=== PATIENT | male | born 1930 ===

== ENCOUNTER 2016-10-22 10:56 | Inpatient (IN) | payer MEDICARE, MEDICAID ==
--- NOTE | 2016-10-22 11:10 | ED Physician Chart ---
Chief Complaint/HPI - Patient Information Date Seen:: 10/22/16 Time Seen:: 11:00 Chief Complaint:: G-tube malfunction History of Present Illness:: 85-year-old male, history of CVA and trach dependent, brought in with acute, severe, G-tube malfunction that happened yesterday morning. G-tube became dislodged and nothing was placed in the stoma to keep it patent. Patient has associated decreased ability to intake nutrition. Also has reported intermittent cough 2-3 days. History limited as patient is averbal due to history of CVA History provided by EMS and EMS run sheet Allergies:: Allergies Allergy/AdvReac Type Severity Reaction Status Date / Time No Known Allergies Allergy Verified 08/18/16 16:46 Historian:: EMS Review:: Nurse's Note Reviewed, EMS run form Reviewed, Transfer documents Reviewed Review of Systems - Review of Systems Other: Complete system review otherwise unremarkable except as noted in HPI. Past Medical History - Past Medical History Past Medical History: CVA/TIA, Other (respiratory failure) Family History: None Social History: Non Smoker, No Alcohol, No Drug Use, Care Facility Surgical History: PEG/GTube Psychiatricy History: None Medication: Reviewed Family Medical History - Family Member Nephew History Unknown: Yes Mother History Unknown: Yes Physical Exam - Physical Examination Other:: INITIAL VITAL SIGNS: Reviewed by me GENERAL: Patient is lying in bed. No signs of acute distress HEAD: Head is normocephalic. No evidence of trauma. No scalp or facial swelling EYES: No scleral icterus bilaterally ENT: Oropharynx is clear of exudate and erythema NECK: Supple. No meningismus. No masses. No evidence of trauma. No cervical spine bony step-offs or crepitus to palpation RESPIRATORY: Patient is trached on ventilator No tachypnea. Right lower lobe rales and a few rhonchi. CV: Regular rate and rhythm. No murmurs, rubs, or gallops ABDOMEN: Soft, non-distended. No masses BACK: No ecchymoses. No evidence of trauma EXTREMITIES: Normal to inspection and palpation. No deformity SKIN: Warm and dry. No obvious rash. No jaundice NEUROLOGIC: Face is symmetric. Withdraws to pain in all extremities Labs/Radiology/EKG Results - Lab Results Results: Lab Results 10/22/16 10/22/16 10/22/16 Range/Units 11:35 11:40 11:40 WBC 8.9 D (4.8-10.8) Th/cmm RBC 4.32 (3.80-5.80) Mil/cmm Hgb 13.8 D (12.6-17.4) gm/dL Hct 41.1 D (39.0-49.0) % MCV 95.1 (80-99) fl MCH 32.0 H (27.0-31.0) pg MCHC Differential 33.6 (28.0-36.0) pg RDW 13.8 (11.5-20.0) % Plt Count 197 D (150-400) Th/cmm MPV 8.8 fl Band Neutrophils % 3 (0-10) % Neutrophils (Manual) 85 H (40-80) % Lymphocytes 5 L (20-50) % Monocytes 6 (2-10) % Eosinophils 1 (0-5) % Platelet Estimate ADEQUATE (NORMAL) Platelet Morphology NORMAL (NORMAL) RBC Morph Micro Appear NORMAL (NORMAL) PT 12.2 H (9.5-11.5) SECONDS INR 1.21 (0.5-1.4) PTT (Actin FS) 28.2 (26.0-38.0) SECONDS Sodium (136-145) mEq/L Potassium (3.5-5.1) mEq/L Chloride (98-107) mEq/L Carbon Dioxide (21.0-31.0) mEq/L Anion Gap (7.0-16.0) BUN (7-25) mg/dL Creatinine (0.7-1.3) mg/dL Est GFR ( Amer) Est GFR (Non-Af Amer) BUN/Creatinine Ratio Glucose (70-105) mg/dL Whole Bld Lactic Acid (0.60-2.00) mmol/L Calcium (8.6-10.3) mg/dL Total Bilirubin (0.3-1.0) mg/dL AST (13-39) U/L ALT (7-52) U/L Alkaline Phosphatase (34-104) U/L Total Protein (6.0-8.3) gm/dL Albumin (4.2-5.5) gm/dL Globulin gm/dL Albumin/Globulin Ratio (1.0-1.8) Urine Source [place] Urine Color YELLOW Urine Clarity CLEAR (CLEAR) Urine pH 8.5 Ur Specific [place] 1.015 (1.005-1.030) Urine Protein NEGATIVE (NEGATIVE) mg/dL Urine Glucose (UA) NEGATIVE (NEGATIVE) mg/dL Urine Ketones NEGATIVE (NEGATIVE) mg/dL Urine Blood SMALL H (NEGATIVE) Urine Nitrate NEGATIVE (NEGATIVE) Urine Bilirubin NEGATIVE (NEGATIVE) Urine Urobilinogen 0.2 (0.2 - 1.0) E.U./dL Ur Leukocyte Esterase NEGATIVE (NEGATIVE) Urine RBC 4-8 (0-5) /hpf Urine WBC 0-2 (0-5) /hpf Ur Epithelial Cells RARE (FEW) /lpf Urine Bacteria OCCASIONAL (NONE SEEN) /hpf 10/22/16 10/22/16 Range/Units 11:40 11:40 WBC (4.8-10.8) Th/cmm RBC (3.80-5.80) Mil/cmm Hgb (12.6-17.4) gm/dL Hct (39.0-49.0) % MCV (80-99) fl MCH (27.0-31.0) pg MCHC Differential (28.0-36.0) pg RDW (11.5-20.0) % Plt Count (150-400) Th/cmm MPV fl Band Neutrophils % (0-10) % Neutrophils (Manual) (40-80) % Lymphocytes (20-50) % Monocytes (2-10) % Eosinophils (0-5) % Platelet Estimate (NORMAL) Platelet Morphology (NORMAL) RBC Morph Micro Appear (NORMAL) PT (9.5-11.5) SECONDS INR (0.5-1.4) PTT (Actin FS) (26.0-38.0) SECONDS Sodium 136 (136-145) mEq/L Potassium 4.3 (3.5-5.1) mEq/L Chloride 102 (98-107) mEq/L Carbon Dioxide 24.4 (21.0-31.0) mEq/L Anion Gap 13.9 (7.0-16.0) BUN 22 (7-25) mg/dL Creatinine 1.0 (0.7-1.3) mg/dL Est GFR ( Amer) TNP Est GFR (Non-Af Amer) TNP BUN/Creatinine Ratio 22.0 Glucose 88 (70-105) mg/dL Whole Bld Lactic Acid 2.21 H* (0.60-2.00) mmol/L Calcium 9.9 (8.6-10.3) mg/dL Total Bilirubin 1.3 H (0.3-1.0) mg/dL AST 21 (13-39) U/L ALT 24 (7-52) U/L Alkaline Phosphatase 59 (34-104) U/L Total Protein 8.0 (6.0-8.3) gm/dL Albumin 3.9 L (4.2-5.5) gm/dL Globulin 4.1 gm/dL Albumin/Globulin Ratio 1.0 (1.0-1.8) Urine Source Urine Color Urine Clarity (CLEAR) Urine pH Ur Specific [place] (1.005-1.030) Urine Protein (NEGATIVE) mg/dL Urine Glucose (UA) (NEGATIVE) mg/dL Urine Ketones (NEGATIVE) mg/dL Urine Blood (NEGATIVE) Urine Nitrate (NEGATIVE) Urine Bilirubin (NEGATIVE) Urine Urobilinogen (0.2 - 1.0) E.U./dL Ur Leukocyte Esterase (NEGATIVE) Urine RBC (0-5) /hpf Urine WBC (0-5) /hpf Ur Epithelial Cells (FEW) /lpf Urine Bacteria (NONE SEEN) /hpf - Radiology Results Results: Single AP VIEW Portable Chest X-ray was interpreted independently and contemporaneously by Salvador Rosales MD: No cardiomegaly Normal mediastinum Right lower lobe infiltrates No pneumothorax No soft tissue or bony abnormalities CT chest without contrast per radiology Right lower lobe and right middle lobe infiltrates Assessment - Assessment General Assessment: Critical Care Time: 35 minutes Treatments/Evaluations: Close monitoring and treatment of unstable vital signs, cardiorespiratory, and neurologic status, while maintaining tight balance of fluid, respiratory, and cardiac interventions. This time includes discussing the case with the patient and the patient's family. This time does not include all procedures stated elsewhere in this record. This time also includes reviewing old records, labs and radiological studies. This time includes examining and re-examining the patient. Additionally, this time also includes arranging care with admitting and consulting physicians. Excludes all billable procedures: Yes This condition life threatening/high prob of deterioration: Yes ED Septic Shock - . Is Septic Shock (SBP<90, OR Lactate>4 mmol\L) present?: No Reassessment (Disposition) - Reassessment Reassessment:: Patient has septic with right lower lobe pneumonia. Likely aspiration. Complicated by him being on ventilator. He did receive IV Zosyn 4.5 g. He also received a breathing treatment. G-tube site was fortunately closed. Attempt was made to reopen the ostomy site here in the ER however there is been too much time between the G-tube removal and now. He will need G-tube replacement. Displacement in the operating room. There was 35 minutes critical care time on this patient given the sepsis with right lower lobe pneumonia and lactic acid greater than 2. Blood cultures were drawn prior to giving antibiotics. Patient's blood pressure was systolic greater than 90. Discussed the case in detail with Dr. Shayne Liu who is covering for Dr. Dubose who is the patient's primary care physician and he will also be admitting the patient to his service for further workup and treatment. Reassessment Condition:: Improved - Diagnosis Diagnosis:: Sepsis, right lower lobe pneumonia G-tube malfunction - Patient Disposition Discharge/Transfer:: Acute Care w/in this hosp Admitted to:: ICU Admitting Medical Physician:: Omar Liu Time:: 13:13 Condition at Disposition:: Stable
[2016-10-22] MEDS ORDERED: Albuterol/Ipratropium Neb 3 ML AERS HHN ONE ×2 (11:43→11:44)
[2016-10-22 12:02] LABS: MEAN CELL VOLUME 95.1 fl (80-99); MEAN CORPUSCULAR HGB CONC 33.6 pg (28.0-36.0); MEAN PLATELET VOLUME 8.8 fl; RED BLOOD COUNT 4.32 Mil/cmm (3.80-5.80); RED CELL DISTRIBUTION WIDTH 13.8 % (11.5-20.0)
[2016-10-22 12:04] LABS: URINE BILIRUBIN NEGATIVE (NEGATIVE); URINE BLOOD SMALL (NEGATIVE); URINE COLOR YELLOW; URINE GLUCOSE (UA) NEGATIVE (NEGATIVE); URINE KETONE NEGATIVE (NEGATIVE); URINE PH 8.5; URINE PROTEIN NEGATIVE (NEGATIVE); URINE UROBILINOGEN 0.2 E.U./dL (0.2 - 1.0)
[2016-10-22 12:07] LABS: HEMATOCRIT 41.1 % (39.0-49.0); HEMOGLOBIN 13.8 gm/dL (12.6-17.4); PLATELET COUNT 197 Th/cmm (150-400); WHITE BLOOD COUNT 8.9 Th/cmm (4.8-10.8)
[2016-10-22 12:15] LABS: INR 1.21 (0.5-1.4); PROTHROMBIN TIME (TEST) 12.2 SECONDS (9.5-11.5)
[2016-10-22 12:19] LABS: ALKALINE PHOSPHATASE 59 U/L (34-104); ANION GAP 13.9 (7.0-16.0); BILIRUBIN,TOTAL 1.3 mg/dL (0.3-1.0); BUN - UREA NITROGEN 22 mg/dL (7-25); CALCIUM SERUM 9.9 mg/dL (8.6-10.3); CARBON DIOXIDE 24.4 mEq/L (21.0-31.0); CHLORIDE 102 mEq/L (98-107); GLUCOSE 88 mg/dL (70-105); POTASSIUM SERUM 4.3 mEq/L (3.5-5.1); SGOT 21 U/L (13-39); SGPT/ALT 24 U/L (7-52); SODIUM SERUM 136 mEq/L (136-145)
--- NOTE | 2016-10-22 12:26 | Diagnostic Imaging Report ---
CHEST X-RAY: AP view INDICATION: Sepsis COMPARISON: Chest x-ray 08/24/2016 FINDINGS: Tracheostomy tube is noted. There is fullness of the right lisette with what appears to be overlying external material. No focal consolidation. Mild cardiomegaly is noted with atherosclerosis. Osseous structures are intact. IMPRESSION: Fullness of the right hilar region. Lymphadenopathy cannot be excluded. CT chest would provide additional detail and assessment. Mild cardiomegaly with atherosclerosis.
[2016-10-22 12:32] LABS: URINE EPITHELIAL CELLS RARE /lpf (FEW); URINE WBC 0-2 /hpf (0-5)
[2016-10-22 12:33] LABS: URINE BACTERIA OCCASIONAL /hpf (NONE SEEN)
[2016-10-22 12:42] LABS: BAND NEUTROPHILE 3 % (0-10); EOSINOPHIL 1 % (0-5); NEUTROPHILS 85 % (40-80); TOTAL CELLS COUNTED 100
[2016-10-22 12:43] LABS: PLATELET ESTIMATE ADEQUATE (NORMAL); PLATELET MORPHOLOGY NORMAL (NORMAL)
--- NOTE | 2016-10-22 13:07 | Diagnostic Imaging Report ---
CT Chest without IV contrast HISTORY: Cough COMPARISON: Chest x-ray earlier the same day. Technique: Axial images were obtained from the base of the neck to the upper abdomen without IV contrast. Reconstructions were made. Total DLP 251, CTDI 5.9 Findings: A tracheostomy tube is noted. 5 mm left thyroid nodule is noted. Assessment of the mediastinum is limited due to lack of IV contrast. No evidence of mediastinal lymphadenopathy. Ectatic ascending aorta is seen measuring up to 4.1 cm. Mild athetotic vascular disease is noted. Mild cardiomegaly is noted. No pericardial effusion. 3 mm granuloma the right upper lobe is noted. Right basal passive atelectatic and mild consolidative changes are noted. Additional focal left upper lobe infiltrate is also noted. Additional left basal passive atelectasis is noted. No effusions. The upper abdomen demonstrates bilateral renal cysts with calcification seen along the peripheral aspect of the left renal cyst. A 2 mm nonobstructive right renal stone. Degenerative changes of the spine are noted. Mild compression the deformities of T1 and T5 are noted. IMPRESSION: Right basal patchy atelectatic and focal consolidative changes. Pneumonia of the right lung base cannot be excluded Additional focal left midlung infiltrate and left basal passive atelectasis. Cardiomegaly and ectatic ascending aorta. Mild atherosclerotic cardiovascular disease 2 mm nonobstructive right renal stone. Bilateral renal cysts with focal calcification of the peripheral aspect of the left renal cyst. Mild compression deformities of the T1 and T5 vertebral bodies. The T1 vertebral body compression deformity appears new when compared to previous CT examination on 08/25/2016. No evidence of retropulsion. Please correlate with clinical findings. Small nodule of the left lobe of the thyroid gland. Ultrasound would further clarify.
[2016-10-22] MEDS ORDERED: Magnesium Hydroxide (MOM) 30 mL UDC GT PRN (17:10)
[2016-10-22] MEDS ORDERED: Albuterol Nebulizer 2.5mg/3mL HHN PRN (17:10)
[2016-10-22] MEDS: Albuterol/Ipratropium Neb 3 ML AERS HHN SCH ×2 (19:02→23:01)
[2016-10-22] MEDS: Budesonide 0.5 Mg/2 mL Ud HHN SCH (19:02)
[2016-10-22] MEDS ORDERED: Chlorhexidine Gluconate 0.12% 480mL Bottle MM SCH (20:00)
--- NOTE | 2016-10-22 21:41 | Consultation ---
REASON FOR CONSULTATION: Help manage with respiratory failure, probably acute on chronic with questionable infiltrate on the right basal area with significant dehydration and altered state of mind. 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 The patient basically initially was admitted because the gastric stoma dislodged and subsequently, the patient had significant decreased ability to take p.o. intake and has required a G-tube, came out with significant calcification. The patient was needed to have hydration and respiratory management and possibly treatment of pneumonia. The patient was admitted for further care and necessary treatment. Unfortunately, meaningful detailed history from the patient is not available. PAST MEDICAL HISTORY: CVA with chronic respiratory failure, history of dysphagia, aphasia, and the patient has a G-tube which was probably accidently dislodged. Other history is very minimal to nil at this particular time. PHYSICAL EXAMINATION: GENERAL: This is an elderly looking gentleman, barely blinks eyes, but no respiratory distress. VITAL SIGNS: Recorded vital signs show temperature is 98.6, blood pressure 115/80, saturation is 100% on 40% of oxygen with FiO2 of 40% with AC of PEEP of 5. HEENT: Examination of head is essentially unremarkable. Pupils appear to be equal and reacting to light. Conjunctivae are slightly pallor. Oral cavity shows limited exam, but appears to be poor dental hygiene. NECK: Veins could not be visualized. Neck finding shows some tracheostomy tube at the base of the neck anteriorly, appears to be clean and okay. SKIN: Turgor is very poor. CHEST: Finding shows diminished air entry. No other adventitious breath sounds. Occasional secretory noise. HEART: Regular. ABDOMEN: Shows a dressing over dislodged G-tube. EXTREMITIES: Shows no peripheral edema. No cyanosis or clubbing. LABORATORY DATA: The patient's pertinent laboratory studies show white count is 8.9, hemoglobin 13.8, and PT is 112. Electrolytes are okay except for lactic acid 2.21. Total bilirubin 1.3 and BUN is 22. The patient's chest x-ray looks okay except for some on right mid lung area. CT of the chest shows slightly volume lung contracture which appears to be chronic changes on the left side with decreased lung volume and other laboratory studies show slight blood in the urine, but otherwise unremarkable. ASSESSMENT: 1. The patient is clinically stable with chronic vent dependence. 2. Abnormal chest x-ray, probably chronic infiltrate on the right side. 3. Dehydration. 4. Gastric chest tube dislodged. PLANS AND SUGGESTIONS: We will go ahead and get a baseline sputum culture. We will get inhalation treatment and we will let the primary decide about G-tube replacement and antibiotic per ID and go from there. JOB# [id number]
[2016-10-22] MEDS: Chlorhexidine Gluconate 0.12% 15mL Mouthwash MM SCH (22:01)
[2016-10-23] MEDS: Albuterol/Ipratropium Neb 3 ML AERS HHN SCH ×6 (03:14→22:49)
[2016-10-23 07:10] LABS: % BASOPHILS 0.5 % (0.0-2.0); % EOSINOPHILS 0.3 % (0.0-5.0); % LYMPHOCYTES 9.1 % (20.0-50.0); % MONOCYTES 11.9 % (2.0-10.0); % NEUTROPHILS 78.2 % (40.0-80.0); HEMATOCRIT 37.5 % (39.0-49.0); MEAN CELL VOLUME 94.6 fl (80-99); MEAN CORPUSCULAR HEMOGLOBIN 32.8 pg (27.0-31.0); MEAN CORPUSCULAR HGB CONC 34.7 pg (28.0-36.0); NEUTROPHILE ABSOLUTE 6.9 Th/cmm (1.8-8.0); PLATELET COUNT 183 Th/cmm (150-400); RED BLOOD COUNT 3.96 Mil/cmm (3.80-5.80); RED CELL DISTRIBUTION WIDTH 14.1 % (11.5-20.0); WHITE BLOOD COUNT 8.7 Th/cmm (4.8-10.8)
[2016-10-23 07:25] LABS: ALKALINE PHOSPHATASE 58 U/L (34-104); ANION GAP 11.4 (7.0-16.0); BILIRUBIN,TOTAL 1.1 mg/dL (0.3-1.0); BUN - UREA NITROGEN 30 mg/dL (7-25); BUN/CREATININE RATIO 27.3; CALCIUM SERUM 9.6 mg/dL (8.6-10.3); CARBON DIOXIDE 24.4 mEq/L (21.0-31.0); CHLORIDE 105 mEq/L (98-107); CREATININE - SERUM 1.1 mg/dL (0.7-1.3); GLUCOSE 89 mg/dL (70-105); POTASSIUM SERUM 3.8 mEq/L (3.5-5.1); SGOT 18 U/L (13-39); SGPT/ALT 17 U/L (7-52); SODIUM SERUM 137 mEq/L (136-145)
[2016-10-23] MEDS: Budesonide 0.5 Mg/2 mL Ud HHN SCH (07:37)
[2016-10-23] MEDS: Chlorhexidine Gluconate 0.12% 15mL Mouthwash MM SCH ×2 (08:25→20:54)
[2016-10-23] MEDS ORDERED: Multivitamin w/ Minerals 15 mL UDC GT SCH (09:00)
[2016-10-23] MEDS: Lactulose 10 Gm/15 mL 30mL UDC GT SCH ×2 (09:30→17:30)
[2016-10-23] MEDS: Ferrous Sulfate 300 MG/5 ML UDC GT SCH ×2 (09:30→17:30)
[2016-10-23] MEDS: Aspirin 81mg Chewable Tab GT SCH (09:30)
[2016-10-23] MEDS ORDERED: VTE Chemical Prophylaxis Screen/Admission MC PRN (09:45)
--- NOTE | 2016-10-23 10:39 | Diagnostic Imaging Report ---
Portable chest x-ray HISTORY: Pneumonia Compared with prior exam of 10/22/2016, the heart remains enlarged. No definite acute focal pulmonary processes identified. IMPRESSION: 1. No definite acute focal pulmonary parenchymal processes 2. Cardiomegaly
--- NOTE | 2016-10-23 10:40 | Diagnostic Imaging Report ---
Portable chest x-ray HISTORY: Shortness of breath, nasogastric tube placement Compared with the prior exam taken earlier in the day, nasogastric tube is been inserted. The tip is in the region of the stomach. No definite focal pulmonary processes. The heart is enlarged. IMPRESSION: 1. New nasogastric tube in the region of the stomach 2. No definite acute focal pulmonary parenchymal processes 3. Cardiomegaly
[2016-10-23] MEDS: Multivitamin w/ Minerals Tab PO SCH (12:00)
[2016-10-23] MEDS: D5-0.45NS 1,000 ML IV SCH (21:44)
--- NOTE | 2016-10-23 22:19 | History & Physical ---
CHIEF COMPLAINT: Dislodgement of G-tube. HISTORY OF PRESENT ILLNESS: The patient is an 85-year-old male with a past medical history of CVA, atrial fibrillation, peripheral arterial disease, essential hypertension, coronary artery disease, GERD, anxiety disorder, history of pneumonia in the past, CVA in the past, history of cellulitis to right lower extremity, chronic ventilator dependence, dysphagia, G-tube, brought in from nursing facility for dislodgement of his G-tube. His stoma was already closed and required placement G-tube again. On initial evaluation, the patient's temperature was 98.6 degrees Fahrenheit and WBC count was 8900. Chest x-ray showed fullness of right hilar region, suspected pneumonia. CT scan of the chest was also performed and showed mild compression deformity T1 and T5 vertebral bodies, cardiomegaly, focal left mid lung infiltrate with the left basal patchy atelectasis, small nodule of left lobe of the thyroid. GI consult was called, Pulmonary consult was called. Waiting for further recommendations. PAST MEDICAL HISTORY: Includes atrial fibrillation and peripheral arterial disease, essential hypertension, coronary artery disease, GERD, anxiety disorder, history of pneumonia in the past, CVA in the past, history of cellulitis of right lower extremity treated in the past, dependence on ventilator chronically, G-tube for dysphagia. ALLERGIES: NKDA. MEDICATIONS: See medication reconciliation sheet. FAMILY HISTORY: Not available. SOCIAL HISTORY: The patient lives at nursing facility. No history of smoking, alcohol or drug use. PAST SURGICAL HISTORY: Includes PEG placement and tracheostomy. REVIEW OF SYSTEMS: Unable to give any history. So far no fever, no chills. PHYSICAL EXAMINATION: CURRENT VITAL SIGNS: Shows temperature is 97.8 degree Fahrenheit, pulse 81, respirations 16, blood pressure 125/62. GENERAL: The patient is comfortable lying in the bed, not in acute distress. HEENT: Head is normocephalic, atraumatic. Oral cavity moist, pink tongue. Eyes: Pallor is present, no icterus. Pupils PERRLA, EOMI. NECK: Supple, trach site is clear. CHEST: Bilateral vesicular sounds. Crackles present. HEART: S1, S2 within normal limits. Regular rhythm. No murmur, no gallop. ABDOMEN: Soft, nontender, nondistended. Bowel sounds present, G-tube site is close with a surrounding erythema. EXTREMITIES: No cyanosis, no clubbing, no edema. NEUROLOGIC: Alert and awake, opens eyes. LABORATORY DATA: Current lab shows WBC count is 8700, hemoglobin 13, hematocrit 37.5, platelets are 183,000, neutrophils 78%. Sodium 137, potassium 3.8, chloride 105, bicarbonate is 24, BUN is 30, creatinine 1.1 and glucose is 89. Lactic acid was 2.21. Urinalysis shows negative nitrite, negative leukoesterase. Chest x-ray showed right hilar fullness. CT scan of the chest showed T1 and T5 compression fracture and focal left mid lung infiltrate, right basilar atelectasis and focal consolidation changes, small nodule of left lobe of thyroid gland. Blood culture 2 sets are negative. MRSA screen is negative. Sputum cultures were negative at this time. IMPRESSION: 1. G-tube dislodgement. 2. Abdominal wall cellulitis. 3. Bilateral pneumonia. 4. Vent dependent respiratory failure. 5. History of hypertension. 6. History of atrial fibrillation. 7. coronary artery disease. 8. History of cerebrovascular accident. RECOMMENDATIONS: 1. Continue vancomycin and Zosyn at this time. 2. Wound care for abdominal wall cellulitis around the G-tube site. 3. GI consultation. 4. Pulmonary consultation by Dr. Bob Liu is appreciated. 5. Continue parental nutritional support temporarily and continue medications from nursing facility. JOB# [id number]
[2016-10-24] MEDS: Albuterol/Ipratropium Neb 3 ML AERS HHN SCH ×6 (03:07→23:50)
[2016-10-24 05:10] LABS: % BASOPHILS 0.1 % (0.0-2.0); % EOSINOPHILS 0.8 % (0.0-5.0); % LYMPHOCYTES 10.7 % (20.0-50.0); % MONOCYTES 12.2 % (2.0-10.0); % NEUTROPHILS 76.2 % (40.0-80.0); HEMATOCRIT 39.6 % (39.0-49.0); HEMOGLOBIN 13.2 gm/dL (12.6-17.4); MEAN CELL VOLUME 94.9 fl (80-99); MEAN CORPUSCULAR HEMOGLOBIN 31.6 pg (27.0-31.0); MEAN CORPUSCULAR HGB CONC 33.4 pg (28.0-36.0); NEUTROPHILE ABSOLUTE 5.3 Th/cmm (1.8-8.0); PLATELET COUNT 191 Th/cmm (150-400); RED BLOOD COUNT 4.17 Mil/cmm (3.80-5.80)
[2016-10-24 05:20] LABS: INR 1.21 (0.5-1.4); PROTHROMBIN TIME (TEST) 12.1 SECONDS (9.5-11.5)
[2016-10-24 05:22] LABS: ALKALINE PHOSPHATASE 56 U/L (34-104); ANION GAP 12.2 (7.0-16.0); BUN - UREA NITROGEN 27 mg/dL (7-25); CALCIUM SERUM 9.3 mg/dL (8.6-10.3); CARBON DIOXIDE 21.4 mEq/L (21.0-31.0); CHLORIDE 107 mEq/L (98-107); CREATININE - SERUM 0.9 mg/dL (0.7-1.3); GLUCOSE 100 mg/dL (70-105); POTASSIUM SERUM 3.6 mEq/L (3.5-5.1); SGOT 21 U/L (13-39); SGPT/ALT 18 U/L (7-52); SODIUM SERUM 137 mEq/L (136-145)
--- NOTE | 2016-10-24 06:34 | Admit Criteria Form ---
Admit Criteria Forms - Admit Criteria Diagnosis: PNEUMONIA, COMMUNITY ACQUIRED Clinical Indications for Admission to Inpatient Care ( Place 'X' for any and all applicable criteria): Admission is indicated for ANY ONE of the following (1)(2)(3): [ ]I. Hypoxemia indicated by ANY ONE of the following: [ ]a) Oxygen saturation less than 90% while breathing room air [ ]b) PO2 less than 60 mm Hg (8.0 kPa) while breathing room air [ ]c) Chronic lung disease with significant deterioration from baseline oxygenation [ ]II. Appropriate diagnostic testing and treatment unavailable in outpatient or recovery facility (eg,testing or infection control measures unavailable(10) [ X]III. Moderate-risk or high-risk category patients (Pneumonia Severity Index (PSI) class IV or V, or CURB-65 score of 3 or greater). [ ]IV. Outpatient treatment failure as indicated by ANY ONE of the following(9) : [ ]a) Failure to respond to antibiotic (eg, resistant organism) [ ]b) Clinically significant adverse effects from medication (eg, vomiting) [ ]c) Complications of pneumonia (eg, empyema, bacteremia) [ ]d) Significant worsening of comorbid cond necessitating inpatient care (eg, chronic heart failure) [ ]V. Intermediate-risk category patients (eg, PSI class III or CURB-65 score 2) who do not improve with initial therapy and observation. [ ]. Immunocompromised patients (eg, AIDS, chronic steroid use) at moderate or high risk based on clinical evaluation. [ ]VII. Complicated pleural effusions (eg, exudative, loculated) [ ]VIII.Hemodynamic instability [ ] IX. Altered mental status that is severe or persistent. [ ]X. Dehydration that is severe or persistent. [ ]XI. Bacteremia [ ]XII. Respiratory finding (eg. tachypnea) that do not respond to outpatient or observation care treatment Extended stay beyond goal length of stay may be needed for (20) [ ]a) Unclear diagnosis [ ]b) Pleural disease [ ]c) Severe pneumonia or treatment failure (25 [ ]d) Respiratory failure (anticipate invasive or noninvasive ventilatory support) [ ]e) Abnormal serum electrolytes (serum Na concentration less than 135 mEq/L (mmol/L) (32)(33) [ ]f) Clinically significant comorbid illness (eg, heart failure, atrial fibrillation with rapid heart rate, alcohol withdrawal, renal insufficiency)(34)(35) [ ]g) Comorbid acute exacerbation of COPD(36) [ ]h) Concomitant diagnosis of malignancy that may be associated with malnutrition, immunologic impairment, or bronchial obstruction. [ ]i) Concomitant altered mental status [ ]j) Culture-identified Gram-negative or antibiotic-resistant organism (eg, Pseudomonas, methicillin-resistant Staphylococcus aureus)(30) [ ]k) Healthcare-associated pneumonia The original [facility] content created by [employer] has been revised. The portions of the content which have been revised are identified through the use of italic text or in bold, and [facility] Everywhere has neither reviewed nor approved the modified material. All other unmodified content is copyright [facility] Everywhere. Please see references footnoted in the original [facility] [employer] edition 2016 <Awilda Dsouza - Last Filed: 10/24/16 06:33> - Admit Criteria Admit Criteria Met?: Yes <Omar Liu - Last Filed: 10/25/16 01:15>
[2016-10-24] MEDS: Budesonide 0.5 Mg/2 mL Ud HHN SCH (06:45)
--- NOTE | 2016-10-24 07:39 | Consultation ---
GASTROINTESTINAL CONSULTATION ATTENDING PHYSICIAN: Omar Liu M.D. CONSULTING PHYSICIAN: Bryce Stanley M.D. REASON FOR CONSULTATION: Dysphagia, dementia, G-tube came out and fistula is closed. HISTORY OF PRESENT ILLNESS: This is an 85-year-old male who is seen through the courtesy of Dr. Lilia Liu. This patient was admitted from the group home via the Emergency Room, as this patient was found to have pneumonia and the patient also had previous history of G-tube, which was pulled out in the group home and apparently the patient was admitted yesterday and fistula has been closed. There is no history of GI bleeding. The patient is unable to provide any history, so most of the history is obtained by reviewing the records. SOCIAL HISTORY AND SOCIAL HISTORY: The patient does not smoke, does not drink. Past medical history is remarkable for history of hypertension, previous history of CVA, history of anoxic encephalopathy, history of peripheral vascular disease, history of arrhythmia, respiratory failure, status post tracheostomy. PAST SURGICAL HISTORY: The patient had PEG in the past and also had tracheostomy. MEDICATIONS: Please see the list: The patient is on multiple medications. REVIEW OF SYSTEMS: Unobtainable from the patient. ALLERGIES: The patient is not allergic to any medication. PHYSICAL EXAMINATION: GENERAL: The patient is a moderately built male, who responds to the painful stimuli, otherwise disoriented and noncommunicative. VITAL SIGNS: Temperature is 98, respiratory rate is 18, blood pressure is 140/90, pulse is 86. HEENT: Head is normocephalic. Pupils are reactive to light. Conjunctivae are pink. No scleral icterus. NECK: The patient had a tracheostomy in place and is on ventilator. LUNGS: Bilateral rhonchi. CARDIOVASCULAR: Normal sinus rhythm. No evidence of any murmur. ABDOMEN: Soft. No organomegaly and the site of the previous G-tube was checked and in fact tried to insert the replacement tube, but the fistula is closed even from outside. Bowel sounds are present. ASSESSMENT: 1. Gastrostomy tube pulled out in the ECF and fistula is closed. 2. Status post cerebrovascular accident. 3. Dementia. 4. Dysphagia. 5. History of pneumonia, respiratory failure, status post tracheostomy and on ventilator. RECOMMENDATIONS: The patient will need a new G-tube and we will discuss with the family and if they agree, then we will schedule it. Thank you for the consult, Dr. Liu. We will follow this patient with you. JOB# [id number]
[2016-10-24] MEDS: Chlorhexidine Gluconate 0.12% 15mL Mouthwash MM SCH ×2 (09:03→20:08)
[2016-10-24] MEDS: Aspirin 81mg Chewable Tab GT SCH (09:08)
[2016-10-24] MEDS: Ferrous Sulfate 300 MG/5 ML UDC GT SCH ×2 (09:09→16:41)
[2016-10-24] MEDS: Multivitamin w/ Minerals Tab PO SCH (09:13)
[2016-10-24] MEDS: Lactulose 10 Gm/15 mL 30mL UDC GT SCH ×2 (09:13→16:42)
[2016-10-24] MEDS ORDERED: Meperidine 50 mg/mL 1mL Syr IVP ONE (13:05)
[2016-10-24] MEDS ORDERED: Meperidine 50 mg/mL 1mL Syr ONE (13:08)
--- NOTE | 2016-10-24 15:31 | Operative Report ---
PROCEDURE: PEG or percutaneous endoscopic gastrostomy. ATTENDING PHYSICIAN: Omar Liu M.D. PREOPERATIVE DIAGNOSES: Dementia and dysphagia. POSTOPERATIVE DIAGNOSES: 1. Mild gastritis. 2. PEG performed successfully. INDICATION OF THE PROCEDURE: This is an 85-year-old male with history of dementia, dysphagia, respiratory failure, and status post tracheostomy. The patient was scheduled for PEG as the previous G-tube fistula was closed and there is cellulitis around that area, so new PEG was scheduled to maintain the nutrition and to avoid aspiration. DESCRIPTION OF PROCEDURE: Proper was consent was obtained from the patient's son as the patient is unable to provide the consent. The patient was sedated with Demerol 50 mg and versed 1 mg IV. The patient was placed in the left lateral position and after sedating the patient, video endoscope was introduced. Squamocolumnar junction was at about 40 cm. There was no lesion noticed in the esophagus. Stomach was then visualized and there was mild gastritis. Duodenal bulb and duodenal loop was normal. Stomach was insufflated with maximum amount of air and light was seen on the anterior abdominal wall where 1% lidocaine was injected. Trocar was then inserted and tip of the trocar was seen inside the stomach. Guidewire was then inserted and guidewire was grabbed with the snare and using the mouth end of the guidewire, PEG catheter size 20-Arabic was placed successfully. The patient tolerated procedure very well and no complication anticipated and will start the feeding in the morning. Thank you for involving us in the care of the patient, Dr. Omar Liu. If there is any question, please call us. JOB# [id number]
[2016-10-24] MEDS: D5-0.45NS 1,000 ML IV SCH (16:50)
[2016-10-25] MEDS ORDERED: Piperacillin Sodium/Tazobact 3.375 gm Vial IV ONE ×2 (01:50→01:51)
[2016-10-25] MEDS: Albuterol/Ipratropium Neb 3 ML AERS HHN SCH ×6 (04:34→22:52)
[2016-10-25] MEDS: Chlorhexidine Gluconate 0.12% 15mL Mouthwash MM SCH ×2 (08:02→20:41)
[2016-10-25] MEDS: Aspirin 81mg Chewable Tab GT SCH (09:07)
[2016-10-25] MEDS: Ferrous Sulfate 300 MG/5 ML UDC GT SCH ×2 (09:08→16:47)
[2016-10-25] MEDS: Multivitamin w/ Minerals Tab PO SCH (09:09)
[2016-10-25] MEDS: Lactulose 10 Gm/15 mL 30mL UDC GT SCH ×2 (09:09→16:47)
[2016-10-25] MEDS: Budesonide 0.5 Mg/2 mL Ud HHN SCH (11:28)
[2016-10-25] MEDS: D5-0.45NS 1,000 ML IV SCH (14:05)
[2016-10-25] MEDS: Pantoprazole 40 mg/Packet PO SCH (14:06)
--- NOTE | 2016-10-25 15:48 | Infectious Disease Prog Note ---
Infectious Disease Subjective - Review of Systems Service Date: 10/25/16 Subjective: There is no new change, there is no fever. Infectious Disease Objective - Results Result Diagrams: 10/24/16 04:42 10/24/16 04:42 Recent Labs: Laboratory Last Values WBC 7.0 Th/cmm (4.8-10.8) 10/24/16 04:42 RBC 4.17 Mil/cmm (3.80-5.80) 10/24/16 04:42 Hgb 13.2 gm/dL (12.6-17.4) 10/24/16 04:42 Hct 39.6 % (39.0-49.0) 10/24/16 04:42 MCV 94.9 fl (80-99) 10/24/16 04:42 MCH 31.6 pg (27.0-31.0) H 10/24/16 04:42 MCHC Differential 33.4 pg (28.0-36.0) 10/24/16 04:42 RDW 14.0 % (11.5-20.0) 10/24/16 04:42 Plt Count 191 Th/cmm (150-400) 10/24/16 04:42 MPV 9.0 fl 10/24/16 04:42 Neutrophils % 76.2 % (40.0-80.0) 10/24/16 04:42 Band Neutrophils % 3 % (0-10) 10/22/16 11:40 Lymphocytes % 10.7 % (20.0-50.0) L 10/24/16 04:42 Monocytes % 12.2 % (2.0-10.0) H 10/24/16 04:42 Eosinophils % 0.8 % (0.0-5.0) 10/24/16 04:42 Basophils % 0.1 % (0.0-2.0) 10/24/16 04:42 Neutrophils (Manual) 85 % (40-80) H 10/22/16 11:40 Lymphocytes 5 % (20-50) L 10/22/16 11:40 Monocytes 6 % (2-10) 10/22/16 11:40 Eosinophils 1 % (0-5) 10/22/16 11:40 Platelet Estimate ADEQUATE (NORMAL) 10/22/16 11:40 Platelet Morphology NORMAL (NORMAL) 10/22/16 11:40 RBC Morph Micro Appear NORMAL (NORMAL) 10/22/16 11:40 PT 12.1 SECONDS (9.5-11.5) H 10/24/16 04:42 INR 1.21 (0.5-1.4) 10/24/16 04:42 PTT (Actin FS) 29.7 SECONDS (26.0-38.0) 10/24/16 04:42 Sodium 137 mEq/L (136-145) 10/24/16 04:42 Potassium 3.6 mEq/L (3.5-5.1) 10/24/16 04:42 Chloride 107 mEq/L (98-107) 10/24/16 04:42 Carbon Dioxide 21.4 mEq/L (21.0-31.0) 10/24/16 04:42 Anion Gap 12.2 (7.0-16.0) 10/24/16 04:42 BUN 27 mg/dL (7-25) H 10/24/16 04:42 Creatinine 0.9 mg/dL (0.7-1.3) 10/24/16 04:42 Est GFR ( Amer) TNP 10/24/16 04:42 Est GFR (Non-Af Amer) TNP 10/24/16 04:42 BUN/Creatinine Ratio 30.0 10/24/16 04:42 Glucose 100 mg/dL (70-105) 10/24/16 04:42 Whole Bld Lactic Acid 1.58 mmol/L (0.60-2.00) 10/22/16 13:50 Calcium 9.3 mg/dL (8.6-10.3) 10/24/16 04:42 Total Bilirubin 1.0 mg/dL (0.3-1.0) 10/24/16 04:42 AST 21 U/L (13-39) 10/24/16 04:42 ALT 18 U/L (7-52) 10/24/16 04:42 Alkaline Phosphatase 56 U/L (34-104) 10/24/16 04:42 Total Protein 7.3 gm/dL (6.0-8.3) 10/24/16 04:42 Albumin 3.6 gm/dL (4.2-5.5) L 10/24/16 04:42 Globulin 3.7 gm/dL 10/24/16 04:42 Albumin/Globulin Ratio 1.0 (1.0-1.8) 10/24/16 04:42 Urine Source [place] 10/22/16 11:35 Urine Color YELLOW 10/22/16 11:35 Urine Clarity CLEAR (CLEAR) 10/22/16 11:35 Urine pH 8.5 10/22/16 11:35 Ur Specific [place] 1.015 (1.005-1.030) 10/22/16 11:35 Urine Protein NEGATIVE mg/dL (NEGATIVE) 10/22/16 11:35 Urine Glucose (UA) NEGATIVE mg/dL (NEGATIVE) 10/22/16 11:35 Urine Ketones NEGATIVE mg/dL (NEGATIVE) 10/22/16 11:35 Urine Blood SMALL (NEGATIVE) H 10/22/16 11:35 Urine Nitrate NEGATIVE (NEGATIVE) 10/22/16 11:35 Urine Bilirubin NEGATIVE (NEGATIVE) 10/22/16 11:35 Urine Urobilinogen 0.2 E.U./dL (0.2 - 1.0) 10/22/16 11:35 Ur Leukocyte Esterase NEGATIVE (NEGATIVE) 10/22/16 11:35 Urine RBC 4-8 /hpf (0-5) 10/22/16 11:35 Urine WBC 0-2 /hpf (0-5) 10/22/16 11:35 Ur Epithelial Cells RARE /lpf (FEW) 10/22/16 11:35 Urine Bacteria OCCASIONAL /hpf (NONE SEEN) 10/22/16 11:35 - Physical Exam Vitals and I&O: Vital Signs Temp 98 F 10/25/16 12:00 Pulse 91 10/25/16 15:00 Resp 17 10/25/16 15:00 BP 126/80 10/25/16 15:00 Pulse Ox 100 10/25/16 15:00 Intake & Output 10/24/16 10/25/16 10/25/16 18:59 06:59 18:59 Intake Total 526.474 022 4181 Output Total 602 300 Balance -75.333 -200 1100 Intake: Intake, IV Amount 526.085 517 5371 D5-0.45NS 1,000 ml @ 50 865.415 2806 mls/hr IV .Q20H [facility] Rx#: [id number] Piperacillin Sodium/ 100 100 Tazobact 3.375 gm In Sodium Chloride 0.9% 100 ml @ 100 mls/hr IV Q8H [facility] Rx#:[id number] Oral 0 0 Output: Urine 600 300 Stool 2 Other: # Bowel Movements 1 Stool Characteristics Soft Soft Active Medications: Current Medications Acetaminophen (Tylenol 650mg/20.3ml Suspension) 650 mg GT DAILY PRN PRN Reason: give 30mins prior to ROM excer Stop: 12/21/16 17:09 Acetaminophen (Tylenol 650mg Supp) 650 mg RC Q6H PRN PRN Reason: Fever > 101 Stop: 12/22/16 20:50 Albuterol Sulfate (Albuterol 2.5mg/3ml Neb Ud) 2.5 mg HHN Q3H PRN PRN Reason: sob/wheezing Stop: 12/21/16 17:09 Albuterol/Ipratropium (Duoneb Neb) 3 ml HHN Q4HRT [facility] Stop: 12/21/16 18:59 Last Admin: 10/25/16 11:28 Dose: 3 ml Amiodarone HCl (Cordarone) 200 mg GT DAILY [facility] Stop: 12/22/16 08:59 Last Admin: 10/25/16 09:06 Dose: 200 mg Amlodipine Besylate (Norvasc) 5 mg GT DAILY [facility] Stop: 12/22/16 08:59 Last Admin: 10/25/16 09:07 Dose: 5 mg Ascorbic Acid (Vitamin C) 500 mg GT DAILY [facility] Stop: 12/22/16 08:59 Last Admin: 10/25/16 09:07 Dose: 500 mg Aspirin (Aspirin Chewable) 81 mg GT DAILY [facility] Stop: 12/22/16 08:59 Last Admin: 10/25/16 09:07 Dose: 81 mg Atenolol (Tenormin) 12.5 mg GT DAILY [facility] Stop: 12/22/16 08:59 Last Admin: 10/25/16 09:08 Dose: 12.5 mg Bisacodyl (Dulcolax 10 Mg Supp) 10 mg RC DAILY PRN PRN Reason: Constipation Stop: 12/21/16 17:09 Budesonide (Pulmicort) 0.5 mg HHN DAILYRT [facility] Stop: 12/21/16 18:59 Last Admin: 10/25/16 11:28 Dose: 0.5 mg Chlorhexidine Gluconate (Peridex) 15 ml MM 0800,1999 [facility] Stop: 12/21/16 19:59 Last Admin: 10/25/16 08:02 Dose: 15 ml Ferrous Sulfate (Iron) 325 mg GT BID [facility] Stop: 12/22/16 08:59 Last Admin: 10/25/16 09:08 Dose: 325 mg Heparin Sodium (Porcine) (Heparin) 5,000 units SUBQ Q12HR [facility] Stop: 12/22/16 20:59 Last Admin: 10/25/16 09:08 Dose: 5,000 units Dextrose/Sodium Chloride (D5-0.45ns) 1,000 mls @ 50 mls/hr IV .Q20H [facility] Stop: 12/22/16 21:44 Last Admin: 10/25/16 14:05 Dose: 50 mls/hr Piperacillin Sod/Tazobactam (Sod 3.375 gm/ Sodium Chloride) 100 mls @ 100 mls/ hr IV Q8H [facility] Stop: 12/24/16 01:59 Last Infusion: 10/25/16 11:53 Dose: Infused Lactulose (Cephulac) 20 gm GT BID [facility] Stop: 12/22/16 08:59 Last Admin: 10/25/16 09:09 Dose: 20 gm Lorazepam (Ativan) 0.5 mg GT Q6H PRN; Protocol PRN Reason: Anxiety Stop: 12/21/16 17:09 Lorazepam (Ativan) 1 mg IVP Q4HR PRN; Protocol PRN Reason: Agitation Stop: 12/22/16 20:48 Last Admin: 10/25/16 12:23 Dose: 1 mg Magnesium Hydroxide (Milk Of Magnesia) 30 ml GT HS PRN PRN Reason: Constipation Stop: 12/21/16 17:09 Miscellaneous (Vte Chemical Prophylaxis Screen/ Admission) 1 ea MC PRN PRN PRN Reason: PROTOCOL Stop: 12/22/16 09:44 Pantoprazole Sodium (Protonix) 40 mg PO DAILY [facility] Stop: 12/24/16 11:59 Last Admin: 10/25/16 14:06 Dose: 40 mg Tramadol HCl (Ultram) 50 mg GT Q6H PRN PRN Reason: muscle pain Stop: 12/21/16 17:09 General: no acute distress, well developed, well nourished HEENT: atraumatic, normocephalic, PERRLA, EOMI Neck: supple Cardiovascular: S1S2, regular Lungs: clear to percussion, crackles, rhonchi Abdomen: soft, other (closed wound at the old g tube entry site. with surroundig erythema.), no tender, no distended Extremities: no cyanosis, no clubbing, no edema Neurological: awake, alert Skin: intact - Procedures Procedures: Procedures Procedure Code Date CHANGE FEEDING DEVICE IN UP INTEST TRACT, TIRE FINISHER APPROACH [id number] 08/18/16 CHANGE GASTROSTOMY TUBE 38571 08/18/16 RESPIRATORY VENTILATION, 24-96 CONSECUTIVE HOURS [id number] 10/22/16 RESPIRATORY VENTILATION, GREATER THAN 96 CONSECUTIVE HOURS [id number] 08/18/16 VENT MGMT INPAT INIT DAY 10/22/16 VENT MGMT INPAT SUBQ DAY 10/22/16 Infectious Disease Assmt/Plan - Problem List Patient Problems: All Active Problems Cellulitis at gastrostomy tube site (Acute) K94.22, L03.319 GTUBE MALFUNCTION (Acute 06/07/16) Sepsis (Acute) Status post gastrostomy tube (G tube) placement, follow-up exam (Acute) Z09 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 Supraventricular tachycardia, paroxysmal (Acute) I47.1 - Assessment Assessment: Impression: 1. Pneumonia. MDRO Acinetobactor, Pseudomonas, and serratia. 2. old G tube site cellulitis. 3. VDRF. S/p new G tube placement. - Plan Plan: RECOMMENDATIONS: Continue wound care. Continue Zosyn and start colistin. LTAC Eval. Felton garay.
[2016-10-26] MEDS: Albuterol/Ipratropium Neb 3 ML AERS HHN SCH ×6 (02:55→22:55)
[2016-10-26] MEDS: D5-0.45NS 1,000 ML IV SCH (06:53)
[2016-10-26] MEDS: Budesonide 0.5 Mg/2 mL Ud HHN SCH (08:00)
[2016-10-26] MEDS: Multivitamin w/ Minerals Tab PO SCH (08:17)
[2016-10-26] MEDS: Pantoprazole 40 mg/Packet PO SCH (08:18)
[2016-10-26] MEDS: Aspirin 81mg Chewable Tab GT SCH (08:18)
[2016-10-26] MEDS: Ferrous Sulfate 300 MG/5 ML UDC GT SCH ×2 (08:19→16:17)
[2016-10-26] MEDS: Lactulose 10 Gm/15 mL 30mL UDC GT SCH ×2 (08:19→16:17)
[2016-10-26] MEDS: Chlorhexidine Gluconate 0.12% 15mL Mouthwash MM SCH ×2 (08:19→20:52)
[2016-10-27] MEDS: Albuterol/Ipratropium Neb 3 ML AERS HHN SCH ×6 (03:10→23:08)
[2016-10-27] MEDS: D5-0.45NS 1,000 ML IV SCH (04:45)
[2016-10-27] MEDS: Budesonide 0.5 Mg/2 mL Ud HHN SCH (07:18)
[2016-10-27] MEDS: Ferrous Sulfate 300 MG/5 ML UDC GT SCH ×2 (09:07→16:46)
[2016-10-27] MEDS: Pantoprazole 40 mg/Packet PO SCH (09:07)
[2016-10-27] MEDS: Multivitamin w/ Minerals Tab PO SCH (09:07)
[2016-10-27] MEDS: Chlorhexidine Gluconate 0.12% 15mL Mouthwash MM SCH ×2 (09:07→20:17)
[2016-10-27] MEDS: Lactulose 10 Gm/15 mL 30mL UDC GT SCH ×2 (09:07→16:47)
[2016-10-27] MEDS: Aspirin 81mg Chewable Tab GT SCH (09:07)
--- NOTE | 2016-10-27 11:52 | Infectious Disease Prog Note ---
Infectious Disease Subjective - Review of Systems Service Date: 10/27/16 Subjective: There is no new change, there is no fever. Infectious Disease Objective - Results Result Diagrams: 10/24/16 04:42 10/24/16 04:42 Recent Labs: Laboratory Last Values WBC 7.0 Th/cmm (4.8-10.8) 10/24/16 04:42 RBC 4.17 Mil/cmm (3.80-5.80) 10/24/16 04:42 Hgb 13.2 gm/dL (12.6-17.4) 10/24/16 04:42 Hct 39.6 % (39.0-49.0) 10/24/16 04:42 MCV 94.9 fl (80-99) 10/24/16 04:42 MCH 31.6 pg (27.0-31.0) H 10/24/16 04:42 MCHC Differential 33.4 pg (28.0-36.0) 10/24/16 04:42 RDW 14.0 % (11.5-20.0) 10/24/16 04:42 Plt Count 191 Th/cmm (150-400) 10/24/16 04:42 MPV 9.0 fl 10/24/16 04:42 Neutrophils % 76.2 % (40.0-80.0) 10/24/16 04:42 Band Neutrophils % 3 % (0-10) 10/22/16 11:40 Lymphocytes % 10.7 % (20.0-50.0) L 10/24/16 04:42 Monocytes % 12.2 % (2.0-10.0) H 10/24/16 04:42 Eosinophils % 0.8 % (0.0-5.0) 10/24/16 04:42 Basophils % 0.1 % (0.0-2.0) 10/24/16 04:42 Neutrophils (Manual) 85 % (40-80) H 10/22/16 11:40 Lymphocytes 5 % (20-50) L 10/22/16 11:40 Monocytes 6 % (2-10) 10/22/16 11:40 Eosinophils 1 % (0-5) 10/22/16 11:40 Platelet Estimate ADEQUATE (NORMAL) 10/22/16 11:40 Platelet Morphology NORMAL (NORMAL) 10/22/16 11:40 RBC Morph Micro Appear NORMAL (NORMAL) 10/22/16 11:40 PT 12.1 SECONDS (9.5-11.5) H 10/24/16 04:42 INR 1.21 (0.5-1.4) 10/24/16 04:42 PTT (Actin FS) 29.7 SECONDS (26.0-38.0) 10/24/16 04:42 Sodium 137 mEq/L (136-145) 10/24/16 04:42 Potassium 3.6 mEq/L (3.5-5.1) 10/24/16 04:42 Chloride 107 mEq/L (98-107) 10/24/16 04:42 Carbon Dioxide 21.4 mEq/L (21.0-31.0) 10/24/16 04:42 Anion Gap 12.2 (7.0-16.0) 10/24/16 04:42 BUN 27 mg/dL (7-25) H 10/24/16 04:42 Creatinine 0.9 mg/dL (0.7-1.3) 10/24/16 04:42 Est GFR ( Amer) TNP 10/24/16 04:42 Est GFR (Non-Af Amer) TNP 10/24/16 04:42 BUN/Creatinine Ratio 30.0 10/24/16 04:42 Glucose 100 mg/dL (70-105) 10/24/16 04:42 Whole Bld Lactic Acid 1.58 mmol/L (0.60-2.00) 10/22/16 13:50 Calcium 9.3 mg/dL (8.6-10.3) 10/24/16 04:42 Total Bilirubin 1.0 mg/dL (0.3-1.0) 10/24/16 04:42 AST 21 U/L (13-39) 10/24/16 04:42 ALT 18 U/L (7-52) 10/24/16 04:42 Alkaline Phosphatase 56 U/L (34-104) 10/24/16 04:42 Total Protein 7.3 gm/dL (6.0-8.3) 10/24/16 04:42 Albumin 3.6 gm/dL (4.2-5.5) L 10/24/16 04:42 Globulin 3.7 gm/dL 10/24/16 04:42 Albumin/Globulin Ratio 1.0 (1.0-1.8) 10/24/16 04:42 Urine Source [place] 10/22/16 11:35 Urine Color YELLOW 10/22/16 11:35 Urine Clarity CLEAR (CLEAR) 10/22/16 11:35 Urine pH 8.5 10/22/16 11:35 Ur Specific [place] 1.015 (1.005-1.030) 10/22/16 11:35 Urine Protein NEGATIVE mg/dL (NEGATIVE) 10/22/16 11:35 Urine Glucose (UA) NEGATIVE mg/dL (NEGATIVE) 10/22/16 11:35 Urine Ketones NEGATIVE mg/dL (NEGATIVE) 10/22/16 11:35 Urine Blood SMALL (NEGATIVE) H 10/22/16 11:35 Urine Nitrate NEGATIVE (NEGATIVE) 10/22/16 11:35 Urine Bilirubin NEGATIVE (NEGATIVE) 10/22/16 11:35 Urine Urobilinogen 0.2 E.U./dL (0.2 - 1.0) 10/22/16 11:35 Ur Leukocyte Esterase NEGATIVE (NEGATIVE) 10/22/16 11:35 Urine RBC 4-8 /hpf (0-5) 10/22/16 11:35 Urine WBC 0-2 /hpf (0-5) 10/22/16 11:35 Ur Epithelial Cells RARE /lpf (FEW) 10/22/16 11:35 Urine Bacteria OCCASIONAL /hpf (NONE SEEN) 10/22/16 11:35 - Physical Exam Vitals and I&O: Vital Signs Temp 98.0 F 10/27/16 08:00 Pulse 72 10/27/16 11:06 Resp 15 10/27/16 10:00 BP 111/61 10/27/16 10:00 Pulse Ox 100 10/27/16 11:06 Intake & Output 10/26/16 10/27/16 10/27/16 18:59 06:59 18:59 Intake Total 560 1690 100 Output Total 450 450 Balance 110 1240 100 Weight (lbs) 63.503 kg Intake: Intake, IV Amount 200 1100 100 D5-0.45NS 1,000 ml @ 50 1000 mls/hr IV .Q20H [facility] Rx#: [id number] Piperacillin Sodium/ 200 100 100 Tazobact 3.375 gm In Sodium Chloride 0.9% 100 ml @ 100 mls/hr IV Q8H [facility] Rx#:[id number] Tube Feeding 360 490 Other 100 Output: Urine 450 450 Stool 0 Other: # Bowel Movements 0 Active Medications: Current Medications Acetaminophen (Tylenol 650mg/20.3ml Suspension) 650 mg GT DAILY PRN PRN Reason: give 30mins prior to ROM excer Stop: 12/21/16 17:09 Acetaminophen (Tylenol 650mg Supp) 650 mg RC Q6H PRN PRN Reason: Fever > 101 Stop: 12/22/16 20:50 Albuterol Sulfate (Albuterol 2.5mg/3ml Neb Ud) 2.5 mg HHN Q3H PRN PRN Reason: sob/wheezing Stop: 12/21/16 17:09 Albuterol/Ipratropium (Duoneb Neb) 3 ml HHN Q4HRT [facility] Stop: 12/21/16 18:59 Last Admin: 10/27/16 11:06 Dose: 3 ml Amiodarone HCl (Cordarone) 200 mg GT DAILY [facility] Stop: 12/22/16 08:59 Last Admin: 10/27/16 09:08 Dose: 200 mg Amlodipine Besylate (Norvasc) 5 mg GT DAILY [facility] Stop: 12/22/16 08:59 Last Admin: 10/27/16 09:08 Dose: 5 mg Ascorbic Acid (Vitamin C) 500 mg GT DAILY [facility] Stop: 12/22/16 08:59 Last Admin: 10/27/16 09:07 Dose: 500 mg Aspirin (Aspirin Chewable) 81 mg GT DAILY [facility] Stop: 12/22/16 08:59 Last Admin: 10/27/16 09:07 Dose: 81 mg Atenolol (Tenormin) 12.5 mg GT DAILY [facility] Stop: 12/22/16 08:59 Last Admin: 10/27/16 09:07 Dose: 12.5 mg Bisacodyl (Dulcolax 10 Mg Supp) 10 mg RC DAILY PRN PRN Reason: Constipation Stop: 12/21/16 17:09 Budesonide (Pulmicort) 0.5 mg HHN DAILYRT [facility] Stop: 12/21/16 18:59 Last Admin: 10/27/16 07:18 Dose: 0.5 mg Chlorhexidine Gluconate (Peridex) 15 ml MM 0800,2000 [facility] Stop: 12/21/16 19:59 Last Admin: 10/27/16 09:07 Dose: 15 ml Ferrous Sulfate (Iron) 325 mg GT BID [facility] Stop: 12/22/16 08:59 Last Admin: 10/27/16 09:07 Dose: 325 mg Heparin Sodium (Porcine) (Heparin) 5,000 units SUBQ Q12HR [facility] Stop: 12/22/16 20:59 Last Admin: 10/27/16 09:07 Dose: 5,000 units Dextrose/Sodium Chloride (D5-0.45ns) 1,000 mls @ 50 mls/hr IV .Q20H [facility] Stop: 12/22/16 21:44 Last Admin: 10/27/16 04:45 Dose: 50 mls/hr Piperacillin Sod/Tazobactam (Sod 3.375 gm/ Sodium Chloride) 100 mls @ 100 mls/ hr IV Q8H [facility] Stop: 12/24/16 01:59 Last Infusion: 10/27/16 10:10 Dose: Infused Lactulose (Cephulac) 20 gm GT BID [facility] Stop: 12/22/16 08:59 Last Admin: 10/27/16 09:07 Dose: 20 gm Lorazepam (Ativan) 0.5 mg GT Q6H PRN; Protocol PRN Reason: Anxiety Stop: 12/21/16 17:09 Lorazepam (Ativan) 1 mg IVP Q4HR PRN; Protocol PRN Reason: Agitation Stop: 12/22/16 20:48 Last Admin: 10/27/16 02:00 Dose: 1 mg Magnesium Hydroxide (Milk Of Magnesia) 30 ml GT HS PRN PRN Reason: Constipation Stop: 12/21/16 17:09 Last Admin: 10/27/16 04:45 Dose: 30 ml Miscellaneous (Vte Chemical Prophylaxis Screen/ Admission) 1 ea MC PRN PRN PRN Reason: PROTOCOL Stop: 12/22/16 09:44 Pantoprazole Sodium (Protonix) 40 mg PO DAILY [facility] Stop: 12/24/16 11:59 Last Admin: 10/27/16 09:07 Dose: 40 mg Tramadol HCl (Ultram) 50 mg GT Q6H PRN PRN Reason: muscle pain Stop: 12/21/16 17:09 General: no acute distress, well developed, well nourished HEENT: atraumatic, normocephalic, PERRLA, EOMI, moist mucous membrane Neck: supple, tracheostomy Cardiovascular: S1S2, regular Lungs: clear to percussion, crackles Abdomen: soft, no tender, no distended Extremities: no cyanosis, no clubbing, no edema Neurological: awake, alert Skin: intact - Procedures Procedures: Procedures Procedure Code Date CHANGE FEEDING DEVICE IN UP INTEST TRACT, BUSINESS ACCOUNT MANAGER APPROACH [id number] 08/18/16 CHANGE GASTROSTOMY TUBE 50826 08/18/16 RESPIRATORY VENTILATION, 24-96 CONSECUTIVE HOURS [id number] 10/22/16 RESPIRATORY VENTILATION, GREATER THAN 96 CONSECUTIVE HOURS [id number] 08/18/16 VENT MGMT INPAT INIT DAY 10/22/16 VENT MGMT INPAT SUBQ DAY 10/22/16 Infectious Disease Assmt/Plan - Problem List Patient Problems: All Active Problems Cellulitis at gastrostomy tube site (Acute) K94.22, L03.319 GTUBE MALFUNCTION (Acute 06/07/16) Sepsis (Acute) Status post gastrostomy tube (G tube) placement, follow-up exam (Acute) Z09 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 Supraventricular tachycardia, paroxysmal (Acute) I47.1 - Assessment Assessment: Impression: 1. Pneumonia. MDRO Acinetobactor, Pseudomonas, and serratia. 2. old G tube site cellulitis. 3. VDRF. 4. S/p new G tube placement. - Plan Plan: RECOMMENDATIONS: Continue wound care. Continue Zosyn and colistin. LTAC Eval. Felton garay.
[2016-10-28] MEDS: Albuterol/Ipratropium Neb 3 ML AERS HHN SCH ×4 (03:11→14:59)
[2016-10-28 05:19] LABS: % BASOPHILS 0.7 % (0.0-2.0); % EOSINOPHILS 3.6 % (0.0-5.0)
[2016-10-28 05:32] LABS: ANION GAP 10.5 (7.0-16.0); BUN - UREA NITROGEN 12 mg/dL (7-25); BUN/CREATININE RATIO 17.1; CALCIUM SERUM 8.6 mg/dL (8.6-10.3); CARBON DIOXIDE 21.8 mEq/L (21.0-31.0); CHLORIDE 111 mEq/L (98-107); CREATININE - SERUM 0.7 mg/dL (0.7-1.3); GLUCOSE 136 mg/dL (70-105); POTASSIUM SERUM 3.3 mEq/L (3.5-5.1); SODIUM SERUM 140 mEq/L (136-145)
[2016-10-28 05:35] LABS: % LYMPHOCYTES 10.1 % (20.0-50.0); % MONOCYTES 8.9 % (2.0-10.0); % NEUTROPHILS 76.7 % (40.0-80.0); MEAN CELL VOLUME 94.7 fl (80-99); MEAN CORPUSCULAR HEMOGLOBIN 33.1 pg (27.0-31.0); MEAN PLATELET VOLUME 9.5 fl; NEUTROPHILE ABSOLUTE 5.3 Th/cmm (1.8-8.0); PLATELET COUNT 169 Th/cmm (150-400); RED BLOOD COUNT 3.36 Mil/cmm (3.80-5.80); RED CELL DISTRIBUTION WIDTH 14.3 % (11.5-20.0); WHITE BLOOD COUNT 6.8 Th/cmm (4.8-10.8)
[2016-10-28 05:45] LABS: HEMATOCRIT 31.8 % (39.0-49.0); HEMOGLOBIN 11.1 gm/dL (12.6-17.4)
[2016-10-28] MEDS: Budesonide 0.5 Mg/2 mL Ud HHN SCH (07:02)
[2016-10-28] MEDS: Chlorhexidine Gluconate 0.12% 15mL Mouthwash MM SCH (08:00)
[2016-10-28] MEDS: Pantoprazole 40 mg/Packet PO SCH (09:27)
[2016-10-28] MEDS: Ferrous Sulfate 300 MG/5 ML UDC GT SCH ×2 (09:27→16:54)
[2016-10-28] MEDS: Lactulose 10 Gm/15 mL 30mL UDC GT SCH ×2 (09:27→16:54)
[2016-10-28] MEDS: Multivitamin w/ Minerals Tab PO SCH (09:29)
[2016-10-28] MEDS: Aspirin 81mg Chewable Tab GT SCH (09:29)
[2016-10-28] MEDS ORDERED: Potassium Chloride Elixir 20 mEq /15 mL UDC GT ONE (15:13)
--- NOTE | 2016-10-29 03:36 | Discharge Summary ---
CHIEF COMPLAINT: Dislodgment of G-tube. HISTORY OF PRESENT ILLNESS AND HOSPITAL COURSE: The patient is an 85-year-old male with a past medical history of CVA, atrial fibrillation, peripheral artery disease, essential hypertension, coronary artery disease, GERD, anxiety disorder, history of pneumonia in the past, CVA in the past, history of cellulitis in right lower extremity, chronic ventricular dependence, dysphagia, G-tube placement, brought in from nursing facility for dislodgment of G-tube. Stoma was already closed and has surrounding erythema. On initial evaluation, the patient's temperature was 98.6 degree Fahrenheit and WBC count was 8900. Chest x-ray showed fullness of right hilar region, suspected pneumonia. CT scan of the chest performed and showed mild compression deformity of T1 and T5 vertebral body, cardiomegaly, focal left mid lung infiltrate with the left base patchy atelectasis, left lobe of the thyroid. While the patient was in hospital assistance trauma, GI consultation and Pulmonary consultation had been performed. New G-tube was placed in on 10/24/2016. As the patient had pneumonia and G-tube site cellulitis, the patient required antibiotics, so he was transferred to [facility] on 10/28/2016. CONSULTATIONS CALLED: Pulmonary consultation with Dr. Bob Liu and GI consultation with Dr. Bryce Gomez. DISCHARGE CONDITION: Stable. DISCHARGE DISPOSITION: To [facility]. DISCHARGE MEDICATION: As per discharge reconciliation sheet. [facility]# [id number]
--- NOTE | 2016-10-29 05:34 | Progress Notes ---
PROBLEM LIST: 1. Persistent respiratory failure. 2. [id number] respiratory failure. 3. Possibly encephalopathy. SYMPTOMS: The patient is relatively not communicative, not in any acute distress. PHYSICAL EXAMINATION: VITAL SIGNS: The patient's recorded vitals: Temperature is ranging from 100 to 150 systolic and patient's saturation is 90% and currently on vent setting. ENT: Shows no new changes. NECK: Trach site appears to be reasonably stable. CHEST: Shows occasional rhonchi with diminished air entry. HEART: Regular. ABDOMEN: Soft and nontender. LABORATORY DATA: The patient's white count is 6.8 and hemoglobin 11.1. Potassium is 3.3, otherwise unremarkable and patient's microbiology does grow Serratia pseudomonas acinetobacter MDRO. Rest of other cultures are negative. ASSESSMENT: The patient is clinically stable with MDRO pneumonia and bronchitis, [id number] respiratory failure. PLANS AND SUGGESTIONS: We will go and continue current treatment. We will follow through with you [facility] in [place] and go from there. JOB# [id number]
[2016-12-04 11:27] LABS: ABG SOURCE Arterial; BE(B) 2.1 mmol/L (-3.0-3.0); HCO3 25.3 mmol/L (20.0-26.0); pH 7.48 (7.35-7.45)
[2016-12-04 11:30] LABS: CRITICAL VALUES REPORTED BY PW; FIO2 30; MECH RATE 12; MECH VT 500
== END 2016-10-28 18:30 | DRG 870 ==
LOC: ER 10:56 → ICU 14:10
PROVIDERS: ADMIT Internal Medicine Infectious Disease; ATTEND Internal Medicine Infectious Disease
PROC: 5A1955Z Respiratory Ventilation, Greater than 96 Consecutive Hours (ICD-10-PCS; principal; 2016-10-22)
PROC: 0DH63UZ Insertion of Feeding Device into Stomach, Percutaneous Approach (ICD-10-PCS; 2016-10-24)
DX: A41.9 Sepsis, unspecified organism (principal); J96.20 Acute and chronic respiratory failure, unspecified whether with hypoxia or hypercapnia; J15.1 Pneumonia due to Pseudomonas; J15.8 Pneumonia due to other specified bacteria; Z99.11 Dependence on respirator [ventilator] status; I48.91 Unspecified atrial fibrillation; J15.6 Pneumonia due to other Gram-negative bacteria; K94.22 Gastrostomy infection; F03.90 Unspecified dementia, unspecified severity, without behavioral disturbance, psychotic disturbance, mood disturbance, and anxiety; L03.311 Cellulitis of abdominal wall; R47.01 Aphasia; R13.10 Dysphagia, unspecified; E86.0 Dehydration; I10 Essential (primary) hypertension; I25.10 Atherosclerotic heart disease of native coronary artery without angina pectoris; K21.9 Gastro-esophageal reflux disease without esophagitis; I73.9 Peripheral vascular disease, unspecified; K29.70 Gastritis, unspecified, without bleeding; Z16.24 Resistance to multiple antibiotics; J40 Bronchitis, not specified as acute or chronic; M43.8X4 Other specified deforming dorsopathies, thoracic region; Z86.73 Personal history of transient ischemic attack (TIA), and cerebral infarction without residual deficits
CPT/HCPCS: 36415-UA; 36600-90; 71010-TC; 71250-TC; 80048-TC; 80053-TC; 81001-TC; 82803-TC; 83605; 85007-TC; 85025-TC; 85027-TC; 85610-TC; 85730-TC; 87070; 87070-90; 94002; 94003; 94664; J1644; J2060; J2543; J7613; X6024; Z7502; Z7506; Z7610

== ENCOUNTER 2017-01-12 23:15 | Inpatient (IN) | payer MEDICARE, MEDICAID ==
[2017-01-13 00:23] LABS: HEMATOCRIT 33.1 % (39.0-49.0); HEMOGLOBIN 11.4 gm/dL (12.6-17.4); MEAN CORPUSCULAR HGB CONC 34.4 pg (28.0-36.0); MEAN PLATELET VOLUME 9.1 fl; RED BLOOD COUNT 3.34 Mil/cmm (3.80-5.80); RED CELL DISTRIBUTION WIDTH 15.2 % (11.5-20.0)
[2017-01-13 00:25] LABS: PLATELET COUNT 230 Th/cmm (150-400)
[2017-01-13 00:33] LABS: ALB/GLOB RATIO 0.9 (1.0-1.8); ALKALINE PHOSPHATASE 59 U/L (34-104); ANION GAP 8.1 (7.0-16.0); BILIRUBIN,TOTAL 0.6 mg/dL (0.3-1.0); BUN - UREA NITROGEN 32 mg/dL (7-25); BUN/CREATININE RATIO 26.7; CALCIUM SERUM 9.1 mg/dL (8.6-10.3); CARBON DIOXIDE 28.1 mEq/L (21.0-31.0); CHLORIDE 100 mEq/L (98-107); CREATININE - SERUM 1.2 mg/dL (0.7-1.3); GLUCOSE 106 mg/dL (70-105); POTASSIUM SERUM 5.2 mEq/L (3.5-5.1); SGOT 26 U/L (13-39); SGPT/ALT 18 U/L (7-52); SODIUM SERUM 131 mEq/L (136-145)
[2017-01-13 00:55] LABS: BAND NEUTROPHILE 3 % (0-10); NEUTROPHILS 80 % (40-80); PLATELET ESTIMATE ADEQUATE (NORMAL); TOTAL CELLS COUNTED 100
--- NOTE | 2017-01-13 01:15 | ED Physician Chart ---
Chief Complaint/HPI - Patient Information Date Seen:: 01/12/17 Time Seen:: 23:33 Chief Complaint:: chest congestion History of Present Illness:: THIS IS AN 86 YO MALE VENT DEPENDANT WITH A TRACH THAT HAS BEEN MALFUNCTIONING AND THE O2 SATS HAVE BEEN GOING UP AND DOWN. 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 THE PATIENT IS UNABLE TO SPEAK OR MOVE ANY OF HIS EXTREMITIES NORMALLY. THE PATIENT WAS SENT HERE FROM A [facility] FOR TREATMENT AND EVALUATION. Allergies:: Allergies Allergy/AdvReac Type Severity Reaction Status Date / Time No Known Allergies Allergy Verified 01/12/17 23:34 Vitals:: Vital Signs - 8 hr 01/12/17 01/12/17 01/13/17 23:30 23:35 00:10 Temp 97.9 F HR 74 78 71 RR 14 BP 100/67 O2 Sat % 100 100 96 Historian:: Medical Records Review:: Nurse's Note Reviewed, Old Chart Reviewed, Transfer documents Reviewed Review of Systems - Review of Systems General/Constitutional: No fever, No chills, No weight loss, No weakness, No diaphoresis, No edema, No loss of appetite, Other (THIS PATIENT IS UNABLE TO GIVE A REVIEW OF SYSTEMS.) Skin: No skin lesions, No rash, No bruising Head: No headache, No light-headedness Eyes: No loss of vision, No pain, No diplopia ENT: No earache, No nasal drainage, No sore throat, No tinnitus Neck: No neck pain, No swelling, No thyromegaly, No stiffness, No mass noted Cardio Vascular: No chest pain, No palpitations, No PND, No orthopnea, No edema Pulmonary: No SOB, No cough, No sputum, No wheezing GI: No nausea, No vomiting, No diarrhea, No pain, No melena, No hematochezia, No constipation, No hematemesis G/U: No dysuria, No frequency, No hematuria Musculoskeletal: No bone or joint pain, No back pain, No muscle pain Endocrine: No polyuria, No polydipsia Psychiatric: No prior psych history, No depression, No anxiety, No suicidal ideation Hematopoietic: No bruising, No lymphadenopathy Allergic/Immuno: No urticaria, No angioedema Neurological: No syncope, No focal symptoms, No weakness, No paresthesia, No headache, No seizure, No dizziness, No confusion, No vertigo Past Medical History - Past Medical History Obtainable: Yes Past Medical History: HTN, CAD, CVA/TIA, Dementia Family History: None Social History: Non Smoker, No Alcohol, No Drug Use, Care Facility Surgical History: PEG/GTube Psychiatricy History: None Medication: Reviewed Family Medical History - Family Member Nephew History Unknown: Yes Mother History Unknown: Yes Physical Exam - Physical Examination General/Constitutional: Awake, Well-developed, well-nourished, No distress, GCS 15, Non-toxic appearing, Ambulatory Other Gen/Cons comments:: LETHARGIC AND UNABLE TO SPEAK Head: Atraumatic Eyes: Lids, conjuctiva normal, PERRL, EOMI Skin: Nl inspection, No rash, No skin lesions, No ecchymosis, Well hydrated, No lymphadenopathy ENMT: External ears, nose nl, Nasal exam nl, Lips, teeth, gums nl Neck: Nontender, Full ROM w/o pain, No JVD, No nuchal rigidity, No bruit, No mass, No stridor Other Neck comments:: NORMAL FUNCTIONING TRACH NOTED IN PLACE IN THE ANTERIOR NECK Respiratory: Nl effort/Exclusion Other Respiratory comments:: THE LUNG ARE CONGESTED AND RHONCHI ARE HEARD BILATERALLY Cardio Vascular: RRR, No murmur, gallop, rubs, NL S1 S2 GI: No tenderness/rebounding/guarding, No organomegaly, No hernia, Normal BS's, Nondistended, No mass/bruits, No McBurney tenderness : No CVA tenderness Extremities: No tenderness or effusion, Full ROM, No edema Other Extremities comments:: ALL FOUR EXTREMITIES HAVE SIGNIFICANT MUSCLE WASTING AND ARE WEAK THE LOWER EXTREMITIES ARE SPASTIC WITH PARALYSIS. Neuro/Psych: DTR's symmetric, Judgement/insight normal, Mood normal, Normal gait , No focal deficits Other Neuro/Psych comments:: THIS PATIENT IS DISORIENTED TIME FOUR WITH LOST OF MOTOR NERVES IN THE LOWER EXTREMITIES Misc: normal gait, Normal back, No paraspinal tenderness Labs/Radiology/EKG Results - Lab Results Results: Laboratory Tests 01/13/17 01/13/17 01/13/17 00:02 00:02 00:02 WBC 9.0 D RBC 3.34 L Hgb 11.4 L Hct 33.1 L MCV 99.0 MCH 34.0 H MCHC Differential 34.4 RDW 15.2 Plt Count 230 D MPV 9.1 Band Neutrophils % 3 Neutrophils (Manual) 80 Lymphocytes 7 L Monocytes 10 Platelet Estimate ADEQUATE Sodium 131 L Potassium 5.2 H Chloride 100 Carbon Dioxide 28.1 Anion Gap 8.1 BUN 32 H Creatinine 1.2 Est GFR ( Amer) TNP Est GFR (Non-Af Amer) TNP BUN/Creatinine Ratio 26.7 Glucose 106 H Calcium 9.1 Total Bilirubin 0.6 AST 26 ALT 18 Alkaline Phosphatase 59 Troponin I 0.02 Total Protein 7.0 Albumin 3.3 L Globulin 3.7 Albumin/Globulin Ratio 0.9 L - EKG Interpretations EKG Time:: 23:44 Rhythm: slow atrial fib Coffey: right Rate: 70 ED Septic Shock - . Is Septic Shock (SBP<90, OR Lactate>4 mmol\L) present?: No - <6hrs of presentation: Vital Signs: Vital Signs - 8 hr 01/12/17 01/12/17 01/13/17 23:30 23:35 00:10 Temp 97.9 F HR 74 78 71 RR 14 BP 100/67 O2 Sat % 100 100 96 Reassessment (Disposition) - Reassessment Reassessment Condition:: Unchanged - Diagnosis Diagnosis:: HYPOXIA ENCEPHALOPATHY DYSPHASIA - Patient Disposition Discharge/Transfer:: Acute Care w/in this hosp Admitting Medical Physician:: Odell Dubose Condition at Disposition:: Improved
[2017-01-13 01:25] LABS: ABG SOURCE ARTERIAL; ALLEN TEST Positive; BE(B) 5.6 mEq/L (-3.0-3.0); FIO2 35; HCO3 29.8 mEq/L (20.0-26.0); MECH RATE 14; MECH VT 500; pH 7.47 (7.35-7.45)
[2017-01-13 01:26] LABS: CRITICAL VALUES REPORTED BY RCP
[2017-01-13] MEDS ORDERED: cefTRIAXone 1 GM in Sodium Chloride 0.9% 50 ML IV ONE (01:41)
[2017-01-13] MEDS ORDERED: Albuterol Nebulizer 2.5mg/3mL HHN PRN (03:33)
[2017-01-13] MEDS ORDERED: Magnesium Hydroxide (MOM) 30 mL UDC GT PRN (03:33)
[2017-01-13 04:57] LABS: % BASOPHILS 0.3 % (0.0-2.0); % EOSINOPHILS 0.8 % (0.0-5.0); % MONOCYTES 10.1 % (2.0-10.0); % NEUTROPHILS 76.8 % (40.0-80.0); HEMATOCRIT 34.5 % (39.0-49.0); HEMOGLOBIN 11.8 gm/dL (12.6-17.4); MEAN CELL VOLUME 97.8 fl (80-99); MEAN CORPUSCULAR HEMOGLOBIN 33.6 pg (27.0-31.0); MEAN CORPUSCULAR HGB CONC 34.4 pg (28.0-36.0); MEAN PLATELET VOLUME 8.7 fl; NEUTROPHILE ABSOLUTE 6.5 Th/cmm (1.8-8.0); PLATELET COUNT 240 Th/cmm (150-400); RED BLOOD COUNT 3.52 Mil/cmm (3.80-5.80); RED CELL DISTRIBUTION WIDTH 14.6 % (11.5-20.0); WHITE BLOOD COUNT 8.4 Th/cmm (4.8-10.8)
[2017-01-13 05:18] LABS: ALB/GLOB RATIO 0.9 (1.0-1.8); ALKALINE PHOSPHATASE 71 U/L (34-104); BILIRUBIN,TOTAL 0.7 mg/dL (0.3-1.0); BUN - UREA NITROGEN 31 mg/dL (7-25); BUN/CREATININE RATIO 25.8; CALCIUM SERUM 9.5 mg/dL (8.6-10.3); CARBON DIOXIDE 26.9 mEq/L (21.0-31.0); CHLORIDE 100 mEq/L (98-107); CREATININE - SERUM 1.2 mg/dL (0.7-1.3); GLUCOSE 88 mg/dL (70-105); POTASSIUM SERUM 4.9 mEq/L (3.5-5.1); SGOT 25 U/L (13-39); SGPT/ALT 22 U/L (7-52); SODIUM SERUM 132 mEq/L (136-145)
[2017-01-13] MEDS ORDERED: Piperacillin Sodium/Tazobact 3.375 gm Vial IV ONE (05:26)
[2017-01-13] MEDS ORDERED: Sodium Chloride 0.9% 500 ML IV ONE (05:45)
[2017-01-13] MEDS: Albuterol/Ipratropium Neb 3 ML AERS HHN SCH ×3 (07:50→19:11)
[2017-01-13] MEDS ORDERED: Chlorhexidine Gluconate 0.12% 15mL Mouthwash MM SCH ×2 (08:00→17:00)
[2017-01-13] MEDS: Budesonide 0.5 Mg/2 mL Ud HHN SCH (08:04)
--- NOTE | 2017-01-13 08:41 | Diagnostic Imaging Report ---
Portable chest x-ray HISTORY: Shortness of breath Compared to prior exam of October 23, 2016, the heart is enlarged. No focal pulmonary processes. Tracheostomy noted. IMPRESSION: 1. No focal pulmonary processes 2. Cardiomegaly
--- NOTE | 2017-01-13 08:41 | Diagnostic Imaging Report ---
Portable chest x-ray HISTORY: Shortness of breath, pneumonia Compared with prior exam performed earlier in the day (0105 hours), no definite acute focal pulmonary processes are seen. The heart remains enlarged. IMPRESSION: 1. No definite acute focal pulmonary processes 2. Persistent cardiomegaly
[2017-01-13] MEDS ORDERED: Chlorhexidine Gluconate 0.12% 480mL Bottle MM SCH (09:00)
[2017-01-13 09:15] LABS: URINE BILIRUBIN NEGATIVE (NEGATIVE); URINE COLOR YELLOW; URINE GLUCOSE (UA) NEGATIVE (NEGATIVE); URINE KETONE NEGATIVE (NEGATIVE)
[2017-01-13 09:16] LABS: URINE BACTERIA FEW /hpf (NONE SEEN); URINE BLOOD NEGATIVE (NEGATIVE); URINE EPITHELIAL CELLS MANY /lpf (FEW); URINE PH 7.5; URINE PROTEIN NEGATIVE (NEGATIVE); URINE RBC NONE SEEN /hpf (0-5); URINE UROBILINOGEN 0.2 E.U./dL (0.2 - 1.0); URINE WBC 0-2 /hpf (0-5)
[2017-01-13] MEDS: Aspirin 81mg Chewable Tab GT SCH (10:08)
[2017-01-13] MEDS: Ferrous Sulfate 300 MG/5 ML UDC GT SCH ×2 (10:08→16:56)
[2017-01-13] MEDS: Multivitamin w/ Minerals Tab GT SCH (10:08)
[2017-01-13] MEDS: Lactulose 10 Gm/15 mL 30mL UDC GT SCH ×2 (10:09→16:57)
[2017-01-13] MEDS: Pantoprazole 40 mg/Packet GT SCH (10:09)
[2017-01-13] MEDS: Ascorbic Acid 500 mg/5 mL UDC GT SCH (10:12)
[2017-01-13 10:35] LABS: ABG SOURCE Arterial; ALLEN TEST Positive; BE(B) 4.4 mEq/L (-3.0-3.0); FIO2 50; HCO3 28.4 mEq/L (20.0-26.0); MECH RATE 14; MECH VT 500; pH 7.47 (7.35-7.45)
--- NOTE | 2017-01-13 13:13 | Admit Criteria Form ---
Admit Criteria Forms - Admit Criteria Diagnosis: PULMONARY DISEASE GRG Clinical Indications for Admission to Inpatient Care ( Place 'X' for any and all applicable criteria): Hospital admission is needed for appropriate care of the patient because of ANY ONE of the following(1): [ ]I. Impending or actual respiratory arrest ( Use Respiratory Failure Criteria for severe respiratory disease and long-term mechanical ventilation patients) (4) [X]II. Severe airflow or ventilation abnormalities (not responsive to emergency and observation care treatment as appropriate) as indicated by ANY ONE of the following(5)(6)(7)(8) : [ ]a) PCO2 > 42 mm Hg (5.6 kPa) and pH < 7.35 (new) [ ]b) Documented PCO2 increase > 5 mm Hg (0.7 kPa) from disease baseline [ ]c) Airflow measurements[A] < 60% of previous best or predicted ( e.g., PEF <300 L/minute) despite intensive emergent treatment[B] [X]d) Required respiratory treatments that are performable only in acute inpatient setting [ ]III. Severe respiratory findings (not responsive to emergency and observation care treatment as appropriate) including ANY ONE of the following(5)(8)(9): [ ]a) Respiratory distress as indicated by ALL of the following(5)(10): [ ]i) Patient with ANY ONE of the following: [ ]1) Dyspnea (difficulty breathing) [ ]2) Abnormal breathing pattern (eg, chest retractions) [ ]3) Tachypnea [ ]4) Other evidence of difficulty breathing [ ]ii) Evidence of respiratory compromise indicated by ANY ONE of the following: [ ]1) Hypoxemia [ ]2) Altered mental status [ ]3) Other evidence of respiratory compromise (eg, pulmonary edema on chest x-ray) [ ]b) Stridor [ ]c) Gross hemoptysis(11) [ ]d) Acute cyanosis [ ]IV. High-risk pulmonary infection as indicated by ANY ONE of the following( 19)(20)(21)(22): [ ]a) Temperature less than 95 degrees F(35 degrees C) or greater than 103.1 degrees F(39.5 degrees C) [ ]b) Hemodynamic instability that remains after emergency or observation level care (as appropriate) [ ]c) Immunocompromised patient (eg, AIDS, post transplant, neutropenic) [ ]d) History of severe COPD [ ]e) History of severely symptomatic congestive heart failure [ ]f) Other high-risk comorbidity (eg, poorly controlled diabetes, cirrhosis, chronic renal insufficiency) [ ]g) Hypoxemia (new) [ ]h) Outpatient, observation, or recovery facility therapy has failed, is not appropriate, or is not feasible [ ]V. Severe atelectasis or lung collapse(15)(16) [ ]. Tuberculosis requiring inpatient treatment as indicated by ANY ONE of the following(17)(18): [ ]a) New positive acid-fast bacilli sputum smear [ ]b) Positive acid-fast bacilli smear (under current treatment), with ANY ONE of the following: [ ]i) Unexposed household contacts [ ]ii) Infants or immunosuppressed household contacts [ ]iii) Patient unable or unwilling to avoid exposing others [ ]iv) Severe immunocompromised patient (eg, AIDS, post transplant, neutropenic) [ ]VII. Empyema or lung abscess(13)(14) [ ]VIII. Severe pulmonary arterial hypertension or pulmonary vascular disease requiring inpatient care indicated by ANY ONE of the following(24)(25): [ ]a) Initiation or change of vasodilators (IV, subcutaneous, or inhaled) or other vasoactive medications needed [ ]b) IV anticoagulation needed (eg, immediate anticoagulation necessary, alternatives not appropriate) [ ]c) Arterial or pulmonary artery catheter monitoring needed due to infusion or other treatment [ ]IX. Chronic lung disease with severe deterioration (not responsive to emergency and observation care treatment as appropriate) as indicated by ANY ONE of the following (6)(12): [ ]a) SaO2 5% below baseline in patient with chronic hypoxemia [ ]b) New requirement for supplemental oxygen to keep SaO2 at baseline or acceptable level [ ]c) Required supplemental oxygen performable only in acute inpatient setting [ ]d) Severe airflow or ventilation abnormalities [ ]e) Rapid rate of exacerbation onset [ ]f) Previously mobile patient unable to walk between rooms [ ]g) Inability to eat or sleep due to dyspnea [ ]h) Altered mental status [ ]X. Cystic fibrosis with severe deterioration as indicated by ANY ONE of the following(26)(27): [ ]a) Severe exacerbation that does not respond to intensified home therapy [ ]b) Pneumonia [ ]c) Hemoptysis [ ]d) Atelectasis [ ]e) Pneumothorax [ ]f) Respiratory failure [ ]g) Severe exacerbation with patient unable to perform prescribed treatments at home [ ]XI. Severe right heart failure as indicated by ANY ONE of the following(24) (25): [ ]a) Increasing organ failure (eg, liver congestion with significant and worsening or new elevation of transaminases) [ ]b) Anasarca [ ]c) Angina that requires inpatient care (eg, not treatable in emergency or observation level of care) [ ]d) Respiratory distress [ ]e) Syncope [ ]f) SBP < 90 mm Hg (new) [ ]XII. Injury requiring inpatient care (medical) as indicated by ANY ONE of the following(28): [ ]a) Significant inhalation injury (eg, smoke inhalation, other toxic inhalation) (29)(30)(31) [ ]b) Airway obstruction that remains or is unstable after emergency or observation level care(32) [ ]c) Severe pain requiring acute inpatient management [ ]d) Lung contusion [ ]e) Bronchial tree injury [ ]f) Air or fat emboli(33) [ ]g) Other injury not treatable in emergency or observation level care (eg, hemothorax) (34) [ ]XIII. Pulmonary hemorrhage or significant hemoptysis(11)(35)(36) [ ]XIV. Inpatient palliative care needed[C](37)(38)(39)(40) [ ]XV. Complications of lung transplant (eg, rejection, failure, respiratory infection) (23) [ ]XVI. Pulmonary Disease and ANY ONE of the following: [ ]a) General Admission Criteria [ ]b) Pediatric General Admission Criteria The original [facility] content created by [facility] has been revised. The portions of the content which have been revised are identified through the use of italic text or in bold, and [facility] has neither reviewed nor approved the modified material. All other unmodified content is copyright [facility]. Please see references footnoted in the original [facility] edition 2016 Admit Criteria Met?: Yes
[2017-01-13] MEDS: Chlorhexidine Gluconate 0.12% 15mL Mouthwash MM SCH (20:49)
--- NOTE | 2017-01-13 21:02 | Consultation ---
REFERRING PHYSICIAN: Dr. Diana Dubose. REASON FOR CONSULTATION: Sepsis. HISTORY OF PRESENT ILLNESS: The patient is an 86-year-old male, vent dependent, status post tracheostomy, brought from the nursing facility for hypoxemia with varied oxygen saturation readings. The patient is unable to give any history as the patient has massive CVA and not able to communicate. However, on initial evaluation, the patient's temperature was 97.9 degrees Fahrenheit and WBC count was 9000. He had vomited coffee ground vomitus and endotracheal secretion is dark in color. Otherwise, chest x-ray showed no active infiltrate and urinalysis showed negative nitrite and negative leukoesterase. PAST MEDICAL HISTORY: Includes atrial fibrillation, peptic ulcer disease, essential hypertension, coronary artery disease, GERD, anxiety disorder, history of pneumonia in the past, CVA with massive stroke, history of cellulitis of right lower extremity treated, vent-dependent respiratory failure, tracheostomy, G-tube and dysphagia. ALLERGIES: NKDA. MEDICATIONS: See medication reconciliation sheet. Antibiotic keller, the patient is receiving vancomycin IV as per pharmacy and Zosyn. FAMILY HISTORY: Not available. SOCIAL HISTORY: The patient lives in a nursing facility. No history of smoking, alcohol or drug use. PAST SURGICAL HISTORY: Includes PEG placement and tracheostomy. REVIEW OF SYSTEMS: Unable to give any history. The patient is on ventilator, had no fever, but the patient has congestion and hypoxia. PHYSICAL EXAMINATION: VITAL SIGNS: Current vital signs show temperature is 97.5 degrees Fahrenheit, pulse is 60, respirations 14 and blood pressure 99/46. GENERAL: The patient is comfortable lying in the bed on the ventilator status post tracheostomy. HEENT: Head: Normocephalic and atraumatic. Mouth: Oral cavity moist, pink tongue. Eyes: No pallor, no icterus. Pupils PERRLA, EOMI. NECK: Supple. Trach site is clear. CHEST: Bilateral breath sounds. Occasional crackles. HEART: S1 and S2 within normal limits. Irregular rhythm. ABDOMEN: Soft, nontender and nondistended. Bowel sounds present. G-tube site is clear. EXTREMITIES: No cyanosis, no clubbing and no edema. NEUROLOGIC: Able to open eyes, but unable to communicate. LABORATORY DATA: WBC count is 8400, hemoglobin 11.8, hematocrit 34.5, platelets are 240,000 and neutrophil is 76.8%. Sodium is 132, potassium 4.9, chloride 100, bicarbonate is 26.9, BUN is 32, creatinine 1.2 and glucose is 88. Urinalysis: Negative nitrite, negative leukoesterase. Chest x-ray shows no acute disease. IMPRESSION: 1. Hypoxemia, suspect aspiration. 2. Vent-dependent respiratory failure. 3. Hypertension. 4. Atrial fibrillation. 5. Coronary artery disease. 6. Cerebrovascular accident. RECOMMENDATIONS: Continue vancomycin IV and Zosyn. Follow the culture report. If patient has improvement clinically may discontinue antibiotic in 5-[address] Dubose for involving me in taking care of this patient. JOB# [id number] ELAINE
[2017-01-14] MEDS: Albuterol/Ipratropium Neb 3 ML AERS HHN SCH ×5 (00:50→15:20)
--- NOTE | 2017-01-14 03:36 | Consultation ---
The patient is a patient of Dr. Dubose. Thank you very much, Dr. Dubose for this consultation. HISTORY OF PRESENT ILLNESS: The patient is an 86-year-old male, [facility] resident who presents with some hypoxemia and some blood-tinged sputum. The patient has been in and out for pneumonia, sepsis and is chronic ventilator dependent. The patient was admitted for treatment and management. Initial blood gas shows some hypoxemia. Followup ABG shows improvement with higher FIO2, but adequate ventilation. The patient appears to be comfortable now, not in any distress. PAST MEDICAL HISTORY: CVA, dysphagia, chronic respiratory failure, ventilator dependent and subacute [facility] resident. REVIEW OF SYSTEMS: Unable to obtain because of the patient's condition. PHYSICAL EXAMINATION: GENERAL: On the vent, appears comfortable, not in distress. VITAL SIGNS: Temperature 97.2, pulse is 77, respirations 14, blood pressure 111/74 and saturation 100%. HEENT: Atraumatic, normocephalic. Pupils react to light and accommodation. Ears, nose and throat normal. NECK: Supple. No JVD. Tracheostomy tube in place, appears to be functioning well. No leak. CHEST: Good breath sounds. Minimal rhonchi. HEART: Regular rate and rhythm. ABDOMEN: Soft and nontender. EXTREMITIES: No edema. LABORATORY DATA: WBC is 8.4, hemoglobin 11.8, hematocrit 34.5 and platelets 240. ABGs: A pH 7.47, pCO2 of 39, pO2 of 169, bicarb 28 and saturation 100%. Sodium 132, potassium 4.9, BUN is 31 and creatinine 1.2. IMAGING STUDIES: UA shows some cloudiness and wbc's. Chest x-ray: Some haziness in the right side and enlarged upper mediastinal area. IMPRESSION: 1. This is an 86-year-old male with chronic respiratory failure with hypoxemia. 2. developing pneumonia. 3. rule out mediastinal mass or airway compression. 4. Urinary tract infection. PLAN: 1. IV antibiotics. 2. Nebulizer treatment. 3. Pulmonary toilet. 4. CT of the chest for better evaluation. 5. Continue ventilator support. Thank you very much. I will follow the patient with you. JOB# [id number] [facility]
[2017-01-14 04:59] LABS: % BASOPHILS 0.4 % (0.0-2.0); % EOSINOPHILS 3.7 % (0.0-5.0); % LYMPHOCYTES 12.4 % (20.0-50.0); % MONOCYTES 13.2 % (2.0-10.0); % NEUTROPHILS 70.3 % (40.0-80.0); HEMATOCRIT 35.3 % (39.0-49.0); MEAN CELL VOLUME 99.2 fl (80-99); MEAN CORPUSCULAR HEMOGLOBIN 33.8 pg (27.0-31.0); MEAN CORPUSCULAR HGB CONC 34.1 pg (28.0-36.0); MEAN PLATELET VOLUME 8.6 fl; PLATELET COUNT 232 Th/cmm (150-400); RED BLOOD COUNT 3.56 Mil/cmm (3.80-5.80); RED CELL DISTRIBUTION WIDTH 15.1 % (11.5-20.0); WHITE BLOOD COUNT 7.2 Th/cmm (4.8-10.8)
[2017-01-14 05:27] LABS: ANION GAP 10.4 (7.0-16.0); BUN - UREA NITROGEN 22 mg/dL (7-25); CALCIUM SERUM 9.5 mg/dL (8.6-10.3); CARBON DIOXIDE 26.6 mEq/L (21.0-31.0); CHLORIDE 104 mEq/L (98-107); GLUCOSE 103 mg/dL (70-105); SODIUM SERUM 136 mEq/L (136-145)
[2017-01-14] MEDS: Budesonide 0.5 Mg/2 mL Ud HHN SCH (08:00)
--- NOTE | 2017-01-14 09:15 | General Progress Note ---
Subjective - Review of Systems Service Date: 01/14/17 Objective - Results Result Diagrams: 01/14/17 04:47 01/14/17 04:47 Recent Labs: Laboratory Last Values WBC 7.2 Th/cmm (4.8-10.8) 01/14/17 04:47 RBC 3.56 Mil/cmm (3.80-5.80) L 01/14/17 04:47 Hgb 12.0 gm/dL (12.6-17.4) L 01/14/17 04:47 Hct 35.3 % (39.0-49.0) L 01/14/17 04:47 MCV 99.2 fl (80-99) H 01/14/17 04:47 MCH 33.8 pg (27.0-31.0) H 01/14/17 04:47 MCHC Differential 34.1 pg (28.0-36.0) 01/14/17 04:47 RDW 15.1 % (11.5-20.0) 01/14/17 04:47 Plt Count 232 Th/cmm (150-400) 01/14/17 04:47 MPV 8.6 fl 01/14/17 04:47 Neutrophils % 70.3 % (40.0-80.0) 01/14/17 04:47 Band Neutrophils % 3 % (0-10) 01/13/17 00:02 Lymphocytes % 12.4 % (20.0-50.0) L 01/14/17 04:47 Monocytes % 13.2 % (2.0-10.0) H 01/14/17 04:47 Eosinophils % 3.7 % (0.0-5.0) 01/14/17 04:47 Basophils % 0.4 % (0.0-2.0) 01/14/17 04:47 Neutrophils (Manual) 80 % (40-80) 01/13/17 00:02 Lymphocytes 7 % (20-50) L 01/13/17 00:02 Monocytes 10 % (2-10) 01/13/17 00:02 Platelet Estimate ADEQUATE (NORMAL) 01/13/17 00:02 Specimen Source Arterial 01/13/17 10:09 Sample Site Left Radial 01/13/17 10:09 pH 7.47 (7.35-7.45) H 01/13/17 10:09 pCO2 39.0 mmHg (35.0-45.0) 01/13/17 10:09 pO2 169.0 mmHg (80.0-100.0) H 01/13/17 10:09 HCO3 28.4 mEq/L (20.0-26.0) H 01/13/17 10:09 Base Excess 4.4 mEq/L (-3.0-3.0) H 01/13/17 10:09 O2 Saturation 100.0 % (92.0-100.0) 01/13/17 10:09 Jesus Test Positive 01/13/17 10:09 Vent Rate 14 01/13/17 10:09 Inspired O2 50 01/13/17 10:09 Tidal Volume 500 01/13/17 10:09 PEEP 5 01/13/17 10:09 Pressure (ins/psv/peep) NA 01/13/17 10:09 Critical Value LZHANG 01/13/17 10:09 Sodium 136 mEq/L (136-145) 01/14/17 04:47 Potassium 5.0 mEq/L (3.5-5.1) 01/14/17 04:47 Chloride 104 mEq/L (98-107) 01/14/17 04:47 Carbon Dioxide 26.6 mEq/L (21.0-31.0) 01/14/17 04:47 Anion Gap 10.4 (7.0-16.0) 01/14/17 04:47 BUN 22 mg/dL (7-25) 01/14/17 04:47 Creatinine 1.0 mg/dL (0.7-1.3) 01/14/17 04:47 Est GFR ( Amer) TNP 01/14/17 04:47 Est GFR (Non-Af Amer) TNP 01/14/17 04:47 BUN/Creatinine Ratio 22.0 01/14/17 04:47 Glucose 103 mg/dL (70-105) 01/14/17 04:47 Calcium 9.5 mg/dL (8.6-10.3) 01/14/17 04:47 Total Bilirubin 0.7 mg/dL (0.3-1.0) 01/13/17 04:45 AST 25 U/L (13-39) 01/13/17 04:45 ALT 22 U/L (7-52) 01/13/17 04:45 Alkaline Phosphatase 71 U/L (34-104) 01/13/17 04:45 Troponin I 0.02 ng/mL (0.01-0.05) 01/13/17 00:02 Total Protein 7.8 gm/dL (6.0-8.3) 01/13/17 04:45 Albumin 3.6 gm/dL (4.2-5.5) L 01/13/17 04:45 Globulin 4.2 gm/dL 01/13/17 04:45 Albumin/Globulin Ratio 0.9 (1.0-1.8) L 01/13/17 04:45 TSH 2.53 uIU/ml (0.34-5.60) 01/13/17 00:02 Urine Source CLEAN C 01/13/17 06:20 Urine Color YELLOW 01/13/17 06:20 Urine Clarity SL. CLOUDY (CLEAR) 01/13/17 06:20 Urine pH 7.5 01/13/17 06:20 Ur Specific [place] 1.020 (1.005-1.030) 01/13/17 06:20 Urine Protein NEGATIVE mg/dL (NEGATIVE) 01/13/17 06:20 Urine Glucose (UA) NEGATIVE mg/dL (NEGATIVE) 01/13/17 06:20 Urine Ketones NEGATIVE mg/dL (NEGATIVE) 01/13/17 06:20 Urine Blood NEGATIVE (NEGATIVE) 01/13/17 06:20 Urine Nitrate NEGATIVE (NEGATIVE) 01/13/17 06:20 Urine Bilirubin NEGATIVE (NEGATIVE) 01/13/17 06:20 Urine Urobilinogen 0.2 E.U./dL (0.2 - 1.0) 01/13/17 06:20 Ur Leukocyte Esterase NEGATIVE (NEGATIVE) 01/13/17 06:20 Urine RBC NONE SEEN /hpf (0-5) 01/13/17 06:20 Urine WBC 0-2 /hpf (0-5) 01/13/17 06:20 Ur Epithelial Cells MANY /lpf (FEW) 01/13/17 06:20 Urine Bacteria FEW /hpf (NONE SEEN) 01/13/17 06:20 - Physical Exam Vitals and I&O: Vital Signs Temp 98 F 01/14/17 06:00 Pulse 72 01/14/17 08:00 Resp 13 01/14/17 06:00 BP 117/81 01/14/17 06:00 Pulse Ox 98 01/14/17 08:00 Intake & Output 01/13/17 01/14/17 01/14/17 18:59 06:59 18:59 Intake Total 580 730 Output Total 400 1000 Balance 180 -270 Intake: Intake, IV Amount 300 50 Piperacillin Sodium/ 50 50 Tazobact 3.375 gm In Sodium Chloride 0.9% 50 ml @ 100 mls/hr IV Q8HR [facility] Rx#:[id number] Vancomycin HCl 1 gm In 250 Sodium Chloride 0.9% 250 ml @ 165 mls/hr IV Q24HR [facility] Rx#:[id number] Oral 0 Tube Feeding 180 380 Other 100 300 Output: Urine 400 1000 Other: # Bowel Movements 0 0 Active Medications: Current Medications Acetaminophen (Tylenol 650mg/20.3ml Suspension) 650 mg GT Q4HR PRN PRN Reason: mild pain or temp >101 Stop: 03/14/17 03:32 Acetaminophen (Tylenol 650mg/20.3ml Suspension) 650 mg GT DAILY PRN PRN Reason: give 30mins prior to ROM excer Stop: 03/14/17 03:32 Albuterol Sulfate (Albuterol 2.5mg/3ml Neb Ud) 2.5 mg HHN Q3H PRN PRN Reason: sob/wheezing Stop: 03/14/17 03:32 Albuterol/Ipratropium (Duoneb Neb) 3 ml HHN Q6H [facility] Stop: 03/14/17 03:32 Last Admin: 01/14/17 08:00 Dose: 3 ml Amiodarone HCl (Cordarone) 200 mg GT DAILY [facility] Stop: 03/14/17 08:59 Last Admin: 01/13/17 08:17 Dose: Not Given Amlodipine Besylate (Norvasc) 5 mg GT DAILY [facility] Stop: 03/14/17 08:59 Last Admin: 01/13/17 08:17 Dose: Not Given Ascorbic Acid (Vitamin C) 500 mg GT DAILY [facility] Stop: 03/14/17 08:59 Last Admin: 01/13/17 10:12 Dose: 500 mg Aspirin (Aspirin Chewable) 81 mg GT DAILY [facility] Stop: 03/14/17 08:59 Last Admin: 01/13/17 10:08 Dose: 81 mg Atenolol (Tenormin) 12.5 mg GT DAILY [facility] Stop: 03/14/17 08:59 Last Admin: 01/13/17 08:18 Dose: Not Given Bisacodyl (Dulcolax 10 Mg Supp) 10 mg RC DAILY PRN PRN Reason: Constipation Stop: 03/14/17 03:32 Budesonide (Pulmicort) 0.5 mg HHN DAILY [facility] Stop: 03/14/17 08:59 Last Admin: 01/14/17 08:00 Dose: 0.5 mg Chlorhexidine Gluconate (Peridex) 15 ml MM BID@0900,2100 [facility] Stop: 03/14/17 20:59 Last Admin: 01/13/17 20:49 Dose: 15 ml Ferrous Sulfate (Iron) 325 mg GT BID [facility] Stop: 03/14/17 08:59 Last Admin: 01/13/17 16:56 Dose: 325 mg Heparin Sodium (Porcine) (Heparin) 5,000 units SUBQ Q12HR [facility] Stop: 03/14/17 08:59 Last Admin: 01/13/17 20:50 Dose: 5,000 units Vancomycin HCl 1 gm/ Sodium (Chloride) 250 mls @ 165 mls/hr IV Q24HR [facility] Stop: 03/14/17 04:29 Last Admin: 01/14/17 04:30 Dose: 165 mls/hr Piperacillin Sod/Tazobactam (Sod 3.375 gm/ Sodium Chloride) 50 mls @ 100 mls/ hr IV Q8HR [facility] Stop: 03/14/17 04:59 Last Infusion: 01/13/17 21:48 Dose: Infused Lactulose (Cephulac) 20 gm GT BID [facility] Stop: 03/14/17 08:59 Last Admin: 01/13/17 16:57 Dose: 20 gm Lorazepam (Ativan) 0.5 mg GT Q6H PRN; Protocol PRN Reason: Anxiety Stop: 03/14/17 03:32 Magnesium Hydroxide (Milk Of Magnesia) 30 ml GT HS PRN PRN Reason: Constipation Stop: 03/14/17 03:32 Pantoprazole Sodium (Protonix) 40 mg GT DAILY [facility] Stop: 03/14/17 08:59 Last Admin: 01/13/17 10:09 Dose: 40 mg Tramadol HCl (Ultram) 50 mg GT Q6H PRN PRN Reason: muscle pain Stop: 03/14/17 03:32 General: No acute distress HEENT: Atraumatic Neck: Supple Abdomen: Bowel sounds - Procedures Procedures: Procedures Procedure Code Date CHANGE FEEDING DEVICE IN UP INTEST TRACT, 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 [id number] 08/18/16 CHANGE GASTROSTOMY TUBE 57571 08/18/[address] GASTROSTOMY TUBE 91155 10/22/16 INSERTION OF FEEDING DEVICE INTO STOMACH, PERC APPROACH [id number] 10/22/16 RESPIRATORY VENTILATION, GREATER THAN 96 CONSECUTIVE HOURS [id number] 10/22/16 VENT MGMT INPAT INIT DAY 33496 10/22/16 VENT MGMT INPAT SUBQ DAY 69268 10/22/16 Assessment/Plan - Problem List Patient Problems: All Active Problems Cellulitis at gastrostomy tube site (Acute) K94.22, L03.319 GTUBE MALFUNCTION (Acute 06/07/16) Sepsis (Acute) Status post gastrostomy tube (G tube) placement, follow-up exam (Acute) Z09 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 Supraventricular tachycardia, paroxysmal (Acute) I47.1 - Plan Plan: monitor vitals/diet oxygen levels labs f/up consultants Nutritional Asmnt/Malnutr-PDOC - Dietary Evaluation Malnutrition Findings (Please click <Entered> for more info): Nutritional Asmnt/Malnutrition Start: 01/13/17 14: 49 Text: Status: Complete Freq: Document 01/13/17 14:49 GSUN (Rec: 01/13/17 15:05 GSUN [email or web address]) Nutritional Asmnt/Malnutrition Patient General Information Nutritional Screening Consult Diagnosis ER: hypoxia, encephalopathy, dysphagia Pertinent Medical Hx/Surgical Hx ER: HTN, CAD, CVA/TIA, dementia Subjective Information 86 year old male from SNF. RD consult received. Pt is PEG and vent dependent with trach, admitted due to malfunctioning of trach. Pt was awake, did not respond to RD, noted spastic lower extremities. Observed tube feeding off at time of visit, RN aware of x20hr schedule. Pt appears thin, moderate fat and muscle wasting to lower extremities noted. Obtained bedscale 129.7lb. Current Diet Order/ Nutrition Support Isosource 50ml/hr x 20hrs Pertinent Medications Vitamin C, Dulcolax, Iron, Cephulac, MOM, Protonix, IV Pertinent Labs Reviewed. Nutritional Hx/Data Height 1.57 m Height (Calculated Centimeters) 157.5 Current Weight (lbs) 58.831 kg Weight (Calculated Kilograms) 58.8 Weight (Calculated Grams) 20548.9 [place] Body Weight 118lb Weight Status Approriate GI Symptoms Difficult in: Swallowing Food Allergies No Cultural/Ethnic/Evangelical Belief Unknown. Skin Integrity/Comment: [facility]: Jevity 1.5 at 50ml/hr x 20hrs. Flush 140ml Q4hrs. Estimated Nutritional Goals BEE in Kcals: Using Current wt Calories/Kcals/Kg CBW 129.7lb/59kg Kcals Calculated 1475-1770kcal (25-30kcal/kg) Protein: Using Current wt Protein Calculated 59g (1g/kg) Fluid: ml 1475-1770ml (1ml/kcal) Nutritional Problem 1. Problem Problem Difficulty swallowing related to Etiology dysphagia aeb Signs/Symptoms: PEG dependent, trach on vent Intervention/Recommendation Comments 1. Continue with Isosource at 50ml/hr x 20hrs, providing 1000ml total volume, 1500kcal, 68g protein, 764ml free water . 2. Recommend 150ml water flushes q6hrs when IV discontinued. Expected Outcomes/Goals Expected Outcomes/Goals 1. Pt to meet 100% estimated nutritional needs on tube feeding with tolerance.
[2017-01-14] MEDS: Lactulose 10 Gm/15 mL 30mL UDC GT SCH ×2 (09:24→17:20)
[2017-01-14] MEDS: Pantoprazole 40 mg/Packet GT SCH (09:24)
[2017-01-14] MEDS: Ferrous Sulfate 300 MG/5 ML UDC GT SCH ×2 (09:24→17:20)
[2017-01-14] MEDS: Ascorbic Acid 500 mg/5 mL UDC GT SCH (09:24)
[2017-01-14] MEDS: Aspirin 81mg Chewable Tab GT SCH (09:25)
[2017-01-14] MEDS: Multivitamin w/ Minerals Tab GT SCH (09:25)
[2017-01-14] MEDS: Chlorhexidine Gluconate 0.12% 15mL Mouthwash MM SCH ×2 (09:30→20:36)
[2017-01-15] MEDS: Budesonide 0.5 Mg/2 mL Ud HHN SCH (06:56)
[2017-01-15] MEDS: Albuterol/Ipratropium Neb 3 ML AERS HHN SCH ×4 (06:56→22:45)
[2017-01-15] MEDS: Chlorhexidine Gluconate 0.12% 15mL Mouthwash MM SCH ×2 (08:00→21:00)
[2017-01-15] MEDS: Aspirin 81mg Chewable Tab GT SCH (08:36)
[2017-01-15] MEDS: Multivitamin w/ Minerals Tab GT SCH (08:37)
[2017-01-15] MEDS: Pantoprazole 40 mg/Packet GT SCH (08:37)
[2017-01-15] MEDS: Lactulose 10 Gm/15 mL 30mL UDC GT SCH ×2 (08:38→17:58)
[2017-01-15] MEDS: Ferrous Sulfate 300 MG/5 ML UDC GT SCH ×2 (08:43→17:00)
--- NOTE | 2017-01-15 09:54 | Diagnostic Imaging Report ---
CT scan of the chest without intravenous contrast HISTORY: Mass. Total DLP equals 281 CTDI equals 6.8 Axial sections were obtained from level above the clavicles down to level below the diaphragm. Tracheostomy is noted. The heart is enlarged. Mild atherosclerotic calcification seen in the aorta. There is mild dilatation of the ascending aorta with a diameter of approximately 4.0 cm. No abnormal mediastinal masses. Evaluation of the hilar structures is limited due to the absence of intravenous contrast. Compared with a prior exam of October 22, 2016, there does appear to be mild right hilar fullness/enlargement. Ill-defined parenchymal density/infiltrate extends from the right hilar region into the right lower lobe along with pleural thickening minimally increased from the prior study. Mild pleural thickening and nonspecific interstitial changes are noted in the left lower lobe unchanged from the prior exam and consistent with a chronic etiology. A small focus of ill-defined density/infiltrate noted in the left upper lobe unchanged. A 2 mm nodular density is seen in the right upper lobe unchanged from the prior exam. No other significant changes from the prior study. Limited sections below the diaphragm demonstrate bilateral renal cysts and small nonobstructing renal calculi. Gastrostomy tube noted. No change from the prior exam. IMPRESSION: 1. Minimal increase in right hilar fullness along with some minimal increase in ill-defined infiltrate in the right lower lobe from the prior exam of 10/22/2016. No other significant changes from the prior study.
--- NOTE | 2017-01-15 12:06 | General Progress Note ---
Subjective - Review of Systems Events since last encounter: no distress Subjective: no distress Objective - Results Result Diagrams: 01/14/17 04:47 01/14/17 04:47 Recent Labs: Laboratory Last Values WBC 7.2 Th/cmm (4.8-10.8) 01/14/17 04:47 RBC 3.56 Mil/cmm (3.80-5.80) L 01/14/17 04:47 Hgb 12.0 gm/dL (12.6-17.4) L 01/14/17 04:47 Hct 35.3 % (39.0-49.0) L 01/14/17 04:47 MCV 99.2 fl (80-99) H 01/14/17 04:47 MCH 33.8 pg (27.0-31.0) H 01/14/17 04:47 MCHC Differential 34.1 pg (28.0-36.0) 01/14/17 04:47 RDW 15.1 % (11.5-20.0) 01/14/17 04:47 Plt Count 232 Th/cmm (150-400) 01/14/17 04:47 MPV 8.6 fl 01/14/17 04:47 Neutrophils % 70.3 % (40.0-80.0) 01/14/17 04:47 Band Neutrophils % 3 % (0-10) 01/13/17 00:02 Lymphocytes % 12.4 % (20.0-50.0) L 01/14/17 04:47 Monocytes % 13.2 % (2.0-10.0) H 01/14/17 04:47 Eosinophils % 3.7 % (0.0-5.0) 01/14/17 04:47 Basophils % 0.4 % (0.0-2.0) 01/14/17 04:47 Neutrophils (Manual) 80 % (40-80) 01/13/17 00:02 Lymphocytes 7 % (20-50) L 01/13/17 00:02 Monocytes 10 % (2-10) 01/13/17 00:02 Platelet Estimate ADEQUATE (NORMAL) 01/13/17 00:02 Specimen Source Arterial 01/13/17 10:09 Sample Site Left Radial 01/13/17 10:09 pH 7.47 (7.35-7.45) H 01/13/17 10:09 pCO2 39.0 mmHg (35.0-45.0) 01/13/17 10:09 pO2 169.0 mmHg (80.0-100.0) H 01/13/17 10:09 HCO3 28.4 mEq/L (20.0-26.0) H 01/13/17 10:09 Base Excess 4.4 mEq/L (-3.0-3.0) H 01/13/17 10:09 O2 Saturation 100.0 % (92.0-100.0) 01/13/17 10:09 Jesus Test Positive 01/13/17 10:09 Vent Rate 14 01/13/17 10:09 Inspired O2 50 01/13/17 10:09 Tidal Volume 500 01/13/17 10:09 PEEP 5 01/13/17 10:09 Pressure (ins/psv/peep) NA 01/13/17 10:09 Critical Value LZHANG 01/13/17 10:09 Sodium 136 mEq/L (136-145) 01/14/17 04:47 Potassium 5.0 mEq/L (3.5-5.1) 01/14/17 04:47 Chloride 104 mEq/L (98-107) 01/14/17 04:47 Carbon Dioxide 26.6 mEq/L (21.0-31.0) 01/14/17 04:47 Anion Gap 10.4 (7.0-16.0) 01/14/17 04:47 BUN 22 mg/dL (7-25) 01/14/17 04:47 Creatinine 1.0 mg/dL (0.7-1.3) 01/14/17 04:47 Est GFR ( Amer) TNP 01/14/17 04:47 Est GFR (Non-Af Amer) TNP 01/14/17 04:47 BUN/Creatinine Ratio 22.0 01/14/17 04:47 Glucose 103 mg/dL (70-105) 01/14/17 04:47 Calcium 9.5 mg/dL (8.6-10.3) 01/14/17 04:47 Total Bilirubin 0.7 mg/dL (0.3-1.0) 01/13/17 04:45 AST 25 U/L (13-39) 01/13/17 04:45 ALT 22 U/L (7-52) 01/13/17 04:45 Alkaline Phosphatase 71 U/L (34-104) 01/13/17 04:45 Troponin I 0.02 ng/mL (0.01-0.05) 01/13/17 00:02 Total Protein 7.8 gm/dL (6.0-8.3) 01/13/17 04:45 Albumin 3.6 gm/dL (4.2-5.5) L 01/13/17 04:45 Globulin 4.2 gm/dL 01/13/17 04:45 Albumin/Globulin Ratio 0.9 (1.0-1.8) L 01/13/17 04:45 TSH 2.53 uIU/ml (0.34-5.60) 01/13/17 00:02 Urine Source CLEAN C 01/13/17 06:20 Urine Color YELLOW 01/13/17 06:20 Urine Clarity SL. CLOUDY (CLEAR) 01/13/17 06:20 Urine pH 7.5 01/13/17 06:20 Ur Specific [place] 1.020 (1.005-1.030) 01/13/17 06:20 Urine Protein NEGATIVE mg/dL (NEGATIVE) 01/13/17 06:20 Urine Glucose (UA) NEGATIVE mg/dL (NEGATIVE) 01/13/17 06:20 Urine Ketones NEGATIVE mg/dL (NEGATIVE) 01/13/17 06:20 Urine Blood NEGATIVE (NEGATIVE) 01/13/17 06:20 Urine Nitrate NEGATIVE (NEGATIVE) 01/13/17 06:20 Urine Bilirubin NEGATIVE (NEGATIVE) 01/13/17 06:20 Urine Urobilinogen 0.2 E.U./dL (0.2 - 1.0) 01/13/17 06:20 Ur Leukocyte Esterase NEGATIVE (NEGATIVE) 01/13/17 06:20 Urine RBC NONE SEEN /hpf (0-5) 01/13/17 06:20 Urine WBC 0-2 /hpf (0-5) 01/13/17 06:20 Ur Epithelial Cells MANY /lpf (FEW) 01/13/17 06:20 Urine Bacteria FEW /hpf (NONE SEEN) 01/13/17 06:20 Random Vancomycin 15.7 ug/mL (5.0-40.0) 01/14/17 16:00 - Physical Exam Vitals and I&O: Vital Signs Temp 98.9 F 01/15/17 11:46 Pulse 60 01/15/17 11:46 Resp 14 01/15/17 11:46 BP 122/75 01/15/17 11:46 Pulse Ox 100 01/15/17 11:46 Intake & Output 01/14/17 01/15/17 01/15/17 18:59 06:59 18:59 Intake Total 700 1370 Output Total 600 800 Balance 100 570 Weight (lbs) 56.608 kg Intake: Intake, IV Amount 100 350 Piperacillin Sodium/ 100 100 Tazobact 3.375 gm In Sodium Chloride 0.9% 50 ml @ 100 mls/hr IV Q8HR [facility] Rx#:[id number] Vancomycin HCl 1 gm In 250 Sodium Chloride 0.9% 250 ml @ 165 mls/hr IV Q12H [facility] Rx#:[id number] Tube Feeding 300 Other 300 1020 Output: Urine 600 800 Other: # Bowel Movements 2 Stool Characteristics Liquid Brown Active Medications: Current Medications Acetaminophen (Tylenol 650mg/20.3ml Suspension) 650 mg GT Q4HR PRN PRN Reason: mild pain or temp >101 Stop: 03/14/17 03:32 Acetaminophen (Tylenol 650mg/20.3ml Suspension) 650 mg GT DAILY PRN PRN Reason: give 30mins prior to ROM excer Stop: 03/14/17 03:32 Albuterol Sulfate (Albuterol 2.5mg/3ml Neb Ud) 2.5 mg HHN Q3H PRN PRN Reason: sob/wheezing Stop: 03/14/17 03:32 Albuterol/Ipratropium (Duoneb Neb) 3 ml HHN Q6H [facility] Stop: 03/14/17 03:32 Last Admin: 01/15/17 06:56 Dose: 3 ml Amiodarone HCl (Cordarone) 200 mg GT DAILY [facility] Stop: 03/14/17 08:59 Last Admin: 01/14/17 09:15 Dose: Not Given Amlodipine Besylate (Norvasc) 5 mg GT DAILY [facility] Stop: 03/14/17 08:59 Last Admin: 01/14/17 09:15 Dose: Not Given Ascorbic Acid (Vitamin C) 500 mg GT DAILY [facility] Stop: 03/14/17 08:59 Last Admin: 01/14/17 09:24 Dose: 500 mg Aspirin (Aspirin Chewable) 81 mg GT DAILY [facility] Stop: 03/14/17 08:59 Last Admin: 01/15/17 08:36 Dose: 81 mg Atenolol (Tenormin) 12.5 mg GT DAILY [facility] Stop: 03/14/17 08:59 Last Admin: 01/15/17 08:46 Dose: 12.5 mg Bisacodyl (Dulcolax 10 Mg Supp) 10 mg RC DAILY PRN PRN Reason: Constipation Stop: 03/14/17 03:32 Budesonide (Pulmicort) 0.5 mg HHN DAILY [facility] Stop: 03/14/17 08:59 Last Admin: 01/15/17 06:56 Dose: 0.5 mg Chlorhexidine Gluconate (Peridex) 15 ml MM BID@0900,2100 [facility] Stop: 03/14/17 20:59 Last Admin: 01/14/17 20:36 Dose: 15 ml Ferrous Sulfate (Iron) 325 mg GT BID [facility] Stop: 03/14/17 08:59 Last Admin: 01/15/17 08:43 Dose: 300 mg Heparin Sodium (Porcine) (Heparin) 5,000 units SUBQ Q12HR [facility] Stop: 03/14/17 08:59 Last Admin: 01/15/17 08:40 Dose: 5,000 units Piperacillin Sod/Tazobactam (Sod 3.375 gm/ Sodium Chloride) 50 mls @ 100 mls/ hr IV Q8HR [facility] Stop: 03/14/17 04:59 Last Infusion: 01/15/17 04:56 Dose: Infused Vancomycin HCl 1 gm/ Sodium (Chloride) 250 mls @ 165 mls/hr IV Q12H [facility] Stop: 03/15/17 17:59 Last Admin: 01/15/17 05:26 Dose: 165 mls/hr Lactulose (Cephulac) 20 gm GT BID [facility] Stop: 03/14/17 08:59 Last Admin: 01/15/17 08:38 Dose: 20 gm Lorazepam (Ativan) 0.5 mg GT Q6H PRN; Protocol PRN Reason: Anxiety Stop: 03/14/17 03:32 Last Admin: 01/14/17 20:37 Dose: 0.5 mg Magnesium Hydroxide (Milk Of Magnesia) 30 ml GT HS PRN PRN Reason: Constipation Stop: 03/14/17 03:32 Pantoprazole Sodium (Protonix) 40 mg GT DAILY [facility] Stop: 03/14/17 08:59 Last Admin: 01/15/17 08:37 Dose: 40 mg Tramadol HCl (Ultram) 50 mg GT Q6H PRN PRN Reason: muscle pain Stop: 03/14/17 03:32 General: No acute distress HEENT: Atraumatic Neck: Supple Cardiovascular: Regular rate Abdomen: Bowel sounds - Procedures Procedures: Procedures Procedure Code Date CHANGE FEEDING DEVICE IN UP INTEST TRACT, 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 [id number] 08/18/16 CHANGE GASTROSTOMY TUBE 12959 08/18/[address] GASTROSTOMY TUBE 37889 10/22/16 INSERTION OF FEEDING DEVICE INTO STOMACH, PERC APPROACH [id number] 10/22/16 RESPIRATORY VENTILATION, 24-96 CONSECUTIVE HOURS [id number] 01/13/17 RESPIRATORY VENTILATION, GREATER THAN 96 CONSECUTIVE HOURS [id number] 10/22/16 VENT MGMT INPAT INIT DAY 01/13/17 VENT MGMT INPAT SUBQ DAY 73974 01/13/17 Assessment/Plan - Problem List Patient Problems: All Active Problems Cellulitis at gastrostomy tube site (Acute) K94.22, L03.319 GTUBE MALFUNCTION (Acute 06/07/16) Sepsis (Acute) Status post gastrostomy tube (G tube) placement, follow-up exam (Acute) Z09 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 Supraventricular tachycardia, paroxysmal (Acute) I47.1 - Plan Plan: monitor vitals/diet oxygen levels labs f/up consultants Nutritional Asmnt/Malnutr-PDOC - Dietary Evaluation Malnutrition Findings (Please click <Entered> for more info): Nutritional Asmnt/Malnutrition Start: 01/13/17 14: 49 Text: Status: Complete Freq: Document 01/13/17 14:49 GSUN (Rec: 01/13/17 15:05 [facility] Nutritional Asmnt/Malnutrition Patient General Information Nutritional Screening Consult Diagnosis ER: hypoxia, encephalopathy, dysphagia Pertinent Medical Hx/Surgical Hx ER: HTN, CAD, CVA/TIA, dementia Subjective Information 86 year old male from SNF. RD consult received. Pt is PEG and vent dependent with trach, admitted due to malfunctioning of trach. Pt was awake, did not respond to RD, noted spastic lower extremities. Observed tube feeding off at time of visit, RN aware of x20hr schedule. Pt appears thin, moderate fat and muscle wasting to lower extremities noted. Obtained bedscale 129.7lb. Current Diet Order/ Nutrition Support Isosource 50ml/hr x 20hrs Pertinent Medications Vitamin C, Dulcolax, Iron, Cephulac, MOM, Protonix, IV Pertinent Labs Reviewed. Nutritional Hx/Data Height 1.57 m Height (Calculated Centimeters) 157.5 Current Weight (lbs) 58.831 kg Weight (Calculated Kilograms) 58.8 Weight (Calculated Grams) 64969.9 [place] Body Weight 118lb Weight Status Approriate GI Symptoms Difficult in: Swallowing Food Allergies No Cultural/Ethnic/Yazidi Belief Unknown. Skin Integrity/Comment: [facility]: Jevity 1.5 at 50ml/hr x 20hrs. Flush 140ml Q4hrs. Estimated Nutritional Goals BEE in Kcals: Using Current wt Calories/Kcals/Kg CBW 129.7lb/59kg Kcals Calculated 1475-1770kcal (25-30kcal/kg) Protein: Using Current wt Protein Calculated 59g (1g/kg) Fluid: ml 1475-1770ml (1ml/kcal) Nutritional Problem 1. Problem Problem Difficulty swallowing related to Etiology dysphagia aeb Signs/Symptoms: PEG dependent, trach on vent Intervention/Recommendation Comments 1. Continue with Isosource at 50ml/hr x 20hrs, providing 1000ml total volume, 1500kcal, 68g protein, 764ml free water . 2. Recommend 150ml water flushes q6hrs when IV discontinued. Expected Outcomes/Goals Expected Outcomes/Goals 1. Pt to meet 100% estimated nutritional needs on tube feeding with tolerance.
[2017-01-15] MEDS ORDERED: Probiotic Screen MC PRN (13:21)
[2017-01-15] MEDS: Ascorbic Acid 500 mg/5 mL UDC GT SCH (14:01)
[2017-01-15] MEDS ORDERED: Influenza Vaccine 0.5 mL Syr IM ONE (17:00)
--- NOTE | 2017-01-15 23:13 | Infectious Disease Prog Note ---
Infectious Disease Subjective - Review of Systems Service Date: 01/15/17 Subjective: Doing well. no fever. Infectious Disease Objective - Results Result Diagrams: 01/14/17 04:47 01/14/17 04:47 Recent Labs: Laboratory Last Values WBC 7.2 Th/cmm (4.8-10.8) 01/14/17 04:47 RBC 3.56 Mil/cmm (3.80-5.80) L 01/14/17 04:47 Hgb 12.0 gm/dL (12.6-17.4) L 01/14/17 04:47 Hct 35.3 % (39.0-49.0) L 01/14/17 04:47 MCV 99.2 fl (80-99) H 01/14/17 04:47 MCH 33.8 pg (27.0-31.0) H 01/14/17 04:47 MCHC Differential 34.1 pg (28.0-36.0) 01/14/17 04:47 RDW 15.1 % (11.5-20.0) 01/14/17 04:47 Plt Count 232 Th/cmm (150-400) 01/14/17 04:47 MPV 8.6 fl 01/14/17 04:47 Neutrophils % 70.3 % (40.0-80.0) 01/14/17 04:47 Band Neutrophils % 3 % (0-10) 01/13/17 00:02 Lymphocytes % 12.4 % (20.0-50.0) L 01/14/17 04:47 Monocytes % 13.2 % (2.0-10.0) H 01/14/17 04:47 Eosinophils % 3.7 % (0.0-5.0) 01/14/17 04:47 Basophils % 0.4 % (0.0-2.0) 01/14/17 04:47 Neutrophils (Manual) 80 % (40-80) 01/13/17 00:02 Lymphocytes 7 % (20-50) L 01/13/17 00:02 Monocytes 10 % (2-10) 01/13/17 00:02 Platelet Estimate ADEQUATE (NORMAL) 01/13/17 00:02 Specimen Source Arterial 01/13/17 10:09 Sample Site Left Radial 01/13/17 10:09 pH 7.47 (7.35-7.45) H 01/13/17 10:09 pCO2 39.0 mmHg (35.0-45.0) 01/13/17 10:09 pO2 169.0 mmHg (80.0-100.0) H 01/13/17 10:09 HCO3 28.4 mEq/L (20.0-26.0) H 01/13/17 10:09 Base Excess 4.4 mEq/L (-3.0-3.0) H 01/13/17 10:09 O2 Saturation 100.0 % (92.0-100.0) 01/13/17 10:09 Jesus Test Positive 01/13/17 10:09 Vent Rate 14 01/13/17 10:09 Inspired O2 50 01/13/17 10:09 Tidal Volume 500 01/13/17 10:09 PEEP 5 01/13/17 10:09 Pressure (ins/psv/peep) NA 01/13/17 10:09 Critical Value LZHANG 01/13/17 10:09 Sodium 136 mEq/L (136-145) 01/14/17 04:47 Potassium 5.0 mEq/L (3.5-5.1) 01/14/17 04:47 Chloride 104 mEq/L (98-107) 01/14/17 04:47 Carbon Dioxide 26.6 mEq/L (21.0-31.0) 01/14/17 04:47 Anion Gap 10.4 (7.0-16.0) 01/14/17 04:47 BUN 22 mg/dL (7-25) 01/14/17 04:47 Creatinine 1.0 mg/dL (0.7-1.3) 01/14/17 04:47 Est GFR ( Amer) TNP 01/14/17 04:47 Est GFR (Non-Af Amer) TNP 01/14/17 04:47 BUN/Creatinine Ratio 22.0 01/14/17 04:47 Glucose 103 mg/dL (70-105) 01/14/17 04:47 Calcium 9.5 mg/dL (8.6-10.3) 01/14/17 04:47 Total Bilirubin 0.7 mg/dL (0.3-1.0) 01/13/17 04:45 AST 25 U/L (13-39) 01/13/17 04:45 ALT 22 U/L (7-52) 01/13/17 04:45 Alkaline Phosphatase 71 U/L (34-104) 01/13/17 04:45 Troponin I 0.02 ng/mL (0.01-0.05) 01/13/17 00:02 Total Protein 7.8 gm/dL (6.0-8.3) 01/13/17 04:45 Albumin 3.6 gm/dL (4.2-5.5) L 01/13/17 04:45 Globulin 4.2 gm/dL 01/13/17 04:45 Albumin/Globulin Ratio 0.9 (1.0-1.8) L 01/13/17 04:45 TSH 2.53 uIU/ml (0.34-5.60) 01/13/17 00:02 Urine Source CLEAN C 01/13/17 06:20 Urine Color YELLOW 01/13/17 06:20 Urine Clarity SL. CLOUDY (CLEAR) 01/13/17 06:20 Urine pH 7.5 01/13/17 06:20 Ur Specific [place] 1.020 (1.005-1.030) 01/13/17 06:20 Urine Protein NEGATIVE mg/dL (NEGATIVE) 01/13/17 06:20 Urine Glucose (UA) NEGATIVE mg/dL (NEGATIVE) 01/13/17 06:20 Urine Ketones NEGATIVE mg/dL (NEGATIVE) 01/13/17 06:20 Urine Blood NEGATIVE (NEGATIVE) 01/13/17 06:20 Urine Nitrate NEGATIVE (NEGATIVE) 01/13/17 06:20 Urine Bilirubin NEGATIVE (NEGATIVE) 01/13/17 06:20 Urine Urobilinogen 0.2 E.U./dL (0.2 - 1.0) 01/13/17 06:20 Ur Leukocyte Esterase NEGATIVE (NEGATIVE) 01/13/17 06:20 Urine RBC NONE SEEN /hpf (0-5) 01/13/17 06:20 Urine WBC 0-2 /hpf (0-5) 01/13/17 06:20 Ur Epithelial Cells MANY /lpf (FEW) 01/13/17 06:20 Urine Bacteria FEW /hpf (NONE SEEN) 01/13/17 06:20 Random Vancomycin 15.7 ug/mL (5.0-40.0) 01/14/17 16:00 - Physical Exam Vitals and I&O: Vital Signs Temp 99.9 F 01/15/17 19:00 Pulse 72 01/15/17 23:00 Resp 18 01/15/17 21:00 BP 118/66 01/15/17 21:00 Pulse Ox 100 01/15/17 23:00 Intake & Output 01/15/17 01/15/17 01/16/17 06:59 18:59 06:59 Intake Total 1620 650 50 Output Total 800 650 Balance 820 0 50 Weight (lbs) 56.608 kg Intake: Intake, IV Amount 600 50 50 Piperacillin Sodium/ 100 50 50 Tazobact 3.375 gm In Sodium Chloride 0.9% 50 ml @ 100 mls/hr IV Q8HR [facility] Rx#:[id number] Vancomycin HCl 1 gm In 500 Sodium Chloride 0.9% 250 ml @ 165 mls/hr IV Q12H [facility] Rx#:[id number] Tube Feeding 600 Other 1020 Output: Urine 800 650 Other: # Bowel Movements 3 Active Medications: Current Medications Acetaminophen (Tylenol 650mg/20.3ml Suspension) 650 mg GT Q4HR PRN PRN Reason: mild pain or temp >101 Stop: 03/14/17 03:32 Acetaminophen (Tylenol 650mg/20.3ml Suspension) 650 mg GT DAILY PRN PRN Reason: give 30mins prior to ROM excer Stop: 03/14/17 03:32 Albuterol Sulfate (Albuterol 2.5mg/3ml Neb Ud) 2.5 mg HHN Q3H PRN PRN Reason: sob/wheezing Stop: 03/14/17 03:32 Albuterol/Ipratropium (Duoneb Neb) 3 ml HHN Q6H [facility] Stop: 03/14/17 03:32 Last Admin: 01/15/17 22:45 Dose: 3 ml Amiodarone HCl (Cordarone) 200 mg GT DAILY [facility] Stop: 03/14/17 08:59 Last Admin: 01/15/17 14:12 Dose: 200 mg Amlodipine Besylate (Norvasc) 5 mg GT DAILY [facility] Stop: 03/14/17 08:59 Last Admin: 01/15/17 14:03 Dose: 5 mg Ascorbic Acid (Vitamin C) 500 mg GT DAILY [facility] Stop: 03/14/17 08:59 Last Admin: 03/23/17 14:01 Dose: 500 mg Aspirin (Aspirin Chewable) 81 mg GT DAILY [facility] Stop: 03/14/17 08:59 Last Admin: 01/15/17 08:36 Dose: 81 mg Atenolol (Tenormin) 12.5 mg GT DAILY [facility] Stop: 03/14/17 08:59 Last Admin: 01/15/17 08:46 Dose: 12.5 mg Bisacodyl (Dulcolax 10 Mg Supp) 10 mg RC DAILY PRN PRN Reason: Constipation Stop: 03/14/17 03:32 Budesonide (Pulmicort) 0.5 mg HHN DAILY [facility] Stop: 03/14/17 08:59 Last Admin: 01/15/17 06:56 Dose: 0.5 mg Chlorhexidine Gluconate (Peridex) 15 ml MM BID@0900,2100 [facility] Stop: 03/14/17 20:59 Last Admin: 01/15/17 08:00 Dose: 15 ml Ferrous Sulfate (Iron) 325 mg GT BID [facility] Stop: 03/14/17 08:59 Last Admin: 01/15/17 17:00 Dose: 325 mg Heparin Sodium (Porcine) (Heparin) 5,000 units SUBQ Q12HR [facility] Stop: 03/14/17 08:59 Last Admin: 01/15/17 20:43 Dose: 5,000 units Piperacillin Sod/Tazobactam (Sod 3.375 gm/ Sodium Chloride) 50 mls @ 100 mls/ hr IV Q8HR [facility] Stop: 03/14/17 04:59 Last Infusion: 01/15/17 22:06 Dose: Infused Vancomycin HCl 1 gm/ Sodium (Chloride) 250 mls @ 165 mls/hr IV Q12H [facility] Stop: 03/15/17 17:59 Last Admin: 01/15/17 17:39 Dose: 165 mls/hr Lactobacillus Rhamnosus (Culturelle) 1 each PO DAILY [facility] Stop: 03/17/17 08:59 Lactulose (Cephulac) 20 gm GT BID [facility] Stop: 03/14/17 08:59 Last Admin: 01/15/17 17:58 Dose: Not Given Lorazepam (Ativan) 0.5 mg GT Q6H PRN; Protocol PRN Reason: Anxiety Stop: 03/14/17 03:32 Last Admin: 01/15/17 20:42 Dose: 0.5 mg Magnesium Hydroxide (Milk Of Magnesia) 30 ml GT HS PRN PRN Reason: Constipation Stop: 03/14/17 03:32 Miscellaneous (Probiotic Screen) 1 ea MC PRN PRN PRN Reason: PROTOCOL Stop: 03/16/17 13:20 Pantoprazole Sodium (Protonix) 40 mg GT DAILY [facility] Stop: 03/14/17 08:59 Last Admin: 01/15/17 08:37 Dose: 40 mg Tramadol HCl (Ultram) 50 mg GT Q6H PRN PRN Reason: muscle pain Stop: 03/14/17 03:32 General: no acute distress, well developed, well nourished HEENT: atraumatic, normocephalic, PERRLA, EOMI Neck: supple, no thyromegaly, no lymphadenopathy Cardiovascular: S1S2, regular Lungs: clear to auscultation bilaterally, clear to percussion Abdomen: soft, no tender, no distended Extremities: no cyanosis, no clubbing, no edema Neurological: awake - Procedures Procedures: Procedures Procedure Code Date CHANGE FEEDING DEVICE IN UP INTEST TRACT, STAFF CLIMATE SCIENTIST APPROACH [id number] 08/18/16 CHANGE GASTROSTOMY TUBE 65601 08/18/[address] GASTROSTOMY TUBE 25339 10/22/16 INSERTION OF FEEDING DEVICE INTO STOMACH, PERC APPROACH [id number] 10/22/16 RESPIRATORY VENTILATION, 24-96 CONSECUTIVE HOURS [id number] 01/13/17 RESPIRATORY VENTILATION, GREATER THAN 96 CONSECUTIVE HOURS [id number] 10/22/16 VENT MGMT INPAT INIT DAY 72642 01/13/17 VENT MGMT INPAT SUBQ DAY 41415 01/13/17 Infectious Disease Assmt/Plan - Problem List Patient Problems: All Active Problems Cellulitis at gastrostomy tube site (Acute) K94.22, L03.319 GTUBE MALFUNCTION (Acute 06/07/16) Sepsis (Acute) Status post gastrostomy tube (G tube) placement, follow-up exam (Acute) Z09 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 Supraventricular tachycardia, paroxysmal (Acute) I47.1 - Assessment Assessment: Impression: 1. Suspected aspiration pneumonia. 2. VDRF. 3. Dementia. 4. CVA. - Plan Plan: Continue vanco and zosyn for 5 to 7 days. DW family. Nutritional Asmnt/Malnutr-PDOC - Dietary Evaluation Malnutrition Findings (Please click <Entered> for more info): Nutritional Asmnt/Malnutrition Start: 01/13/17 14: 49 Text: Status: Complete Freq: Document 01/13/17 14:49 [email or web address] (Rec: 01/13/17 15:05 GSUN [email or web address]) Nutritional Asmnt/Malnutrition Patient General Information Nutritional Screening Consult Diagnosis ER: hypoxia, encephalopathy, dysphagia Pertinent Medical Hx/Surgical Hx ER: HTN, CAD, CVA/TIA, dementia Subjective Information 86 year old male from SNF. RD consult received. Pt is PEG and vent dependent with trach, admitted due to malfunctioning of trach. Pt was awake, did not respond to RD, noted spastic lower extremities. Observed tube feeding off at time of visit, RN aware of x20hr schedule. Pt appears thin, moderate fat and muscle wasting to lower extremities noted. Obtained bedscale 129.7lb. Current Diet Order/ Nutrition Support Isosource 50ml/hr x 20hrs Pertinent Medications Vitamin C, Dulcolax, Iron, Cephulac, MOM, Protonix, IV Pertinent Labs Reviewed. Nutritional Hx/Data Height 1.57 m Height (Calculated Centimeters) 157.5 Current Weight (lbs) 58.831 kg Weight (Calculated Kilograms) 58.8 Weight (Calculated Grams) 04451.9 [place] Body Weight 118lb Weight Status Approriate GI Symptoms Difficult in: Swallowing Food Allergies No Cultural/Ethnic/Mandaen Belief Unknown. Skin Integrity/Comment: [facility]: Jevity 1.5 at 50ml/hr x 20hrs. Flush 140ml Q4hrs. Estimated Nutritional Goals BEE in Kcals: Using Current wt Calories/Kcals/Kg CBW 129.7lb/59kg Kcals Calculated 1475-1770kcal (25-30kcal/kg) Protein: Using Current wt Protein Calculated 59g (1g/kg) Fluid: ml 1475-1770ml (1ml/kcal) Nutritional Problem 1. Problem Problem Difficulty swallowing related to Etiology dysphagia aeb Signs/Symptoms: PEG dependent, trach on vent Intervention/Recommendation Comments 1. Continue with Isosource at 50ml/hr x 20hrs, providing 1000ml total volume, 1500kcal, 68g protein, 764ml free water . 2. Recommend 150ml water flushes q6hrs when IV discontinued. Expected Outcomes/Goals Expected Outcomes/Goals 1. Pt to meet 100% estimated nutritional needs on tube feeding with tolerance.
[2017-01-16] MEDS: Albuterol/Ipratropium Neb 3 ML AERS HHN SCH ×4 (01:05→14:27)
[2017-01-16] MEDS: Budesonide 0.5 Mg/2 mL Ud HHN SCH (07:12)
[2017-01-16 08:55] LABS: % BASOPHILS 0.3 % (0.0-2.0); % EOSINOPHILS 2.5 % (0.0-5.0); % MONOCYTES 14.2 % (2.0-10.0); HEMATOCRIT 34.1 % (39.0-49.0); HEMOGLOBIN 11.7 gm/dL (12.6-17.4); MEAN CELL VOLUME 99.7 fl (80-99); MEAN CORPUSCULAR HEMOGLOBIN 34.2 pg (27.0-31.0); MEAN CORPUSCULAR HGB CONC 34.3 pg (28.0-36.0); MEAN PLATELET VOLUME 10.2 fl; NEUTROPHILE ABSOLUTE 4.7 Th/cmm (1.8-8.0); PLATELET COUNT 227 Th/cmm (150-400); RED BLOOD COUNT 3.42 Mil/cmm (3.80-5.80); WHITE BLOOD COUNT 7.2 Th/cmm (4.8-10.8)
[2017-01-16] MEDS ORDERED: Lactobacillus Rhamnosus 10 Billion CFU Capsule PO SCH (09:00)
[2017-01-16 09:09] LABS: ANION GAP 12.3 (7.0-16.0); BUN - UREA NITROGEN 18 mg/dL (7-25); CALCIUM SERUM 9.4 mg/dL (8.6-10.3); CARBON DIOXIDE 19.4 mEq/L (21.0-31.0); CHLORIDE 111 mEq/L (98-107); GLUCOSE 96 mg/dL (70-105); POTASSIUM SERUM 4.7 mEq/L (3.5-5.1); SODIUM SERUM 138 mEq/L (136-145)
[2017-01-16] MEDS: Pantoprazole 40 mg/Packet GT SCH (09:31)
[2017-01-16] MEDS: Aspirin 81mg Chewable Tab GT SCH (09:31)
[2017-01-16] MEDS: Multivitamin w/ Minerals Tab GT SCH (09:31)
[2017-01-16] MEDS: Ferrous Sulfate 300 MG/5 ML UDC GT SCH (09:32)
[2017-01-16] MEDS: Lactulose 10 Gm/15 mL 30mL UDC GT SCH (09:32)
--- NOTE | 2017-01-16 09:45 | General Progress Note ---
Subjective - Review of Systems Events since last encounter: no distress Subjective: no distress Objective - Results Result Diagrams: 01/16/17 05:06 01/16/17 05:06 Recent Labs: Laboratory Last Values WBC 7.2 Th/cmm (4.8-10.8) 01/16/17 05:06 RBC 3.42 Mil/cmm (3.80-5.80) L 01/16/17 05:06 Hgb 11.7 gm/dL (12.6-17.4) L 01/16/17 05:06 Hct 34.1 % (39.0-49.0) L 01/16/17 05:06 MCV 99.7 fl (80-99) H 01/16/17 05:06 MCH 34.2 pg (27.0-31.0) H 01/16/17 05:06 MCHC Differential 34.3 pg (28.0-36.0) 01/16/17 05:06 RDW 15.0 % (11.5-20.0) 01/16/17 05:06 Plt Count 227 Th/cmm (150-400) 01/16/17 05:06 MPV 10.2 fl 01/16/17 05:06 Neutrophils % 65.0 % (40.0-80.0) 01/16/17 05:06 Band Neutrophils % 3 % (0-10) 01/13/17 00:02 Lymphocytes % 18.0 % (20.0-50.0) L 01/16/17 05:06 Monocytes % 14.2 % (2.0-10.0) H 01/16/17 05:06 Eosinophils % 2.5 % (0.0-5.0) 01/16/17 05:06 Basophils % 0.3 % (0.0-2.0) 01/16/17 05:06 Neutrophils (Manual) 80 % (40-80) 01/13/17 00:02 Lymphocytes 7 % (20-50) L 01/13/17 00:02 Monocytes 10 % (2-10) 01/13/17 00:02 Platelet Estimate ADEQUATE (NORMAL) 01/13/17 00:02 Specimen Source Arterial 01/13/17 10:09 Sample Site Left Radial 01/13/17 10:09 pH 7.47 (7.35-7.45) H 01/13/17 10:09 pCO2 39.0 mmHg (35.0-45.0) 01/13/17 10:09 pO2 169.0 mmHg (80.0-100.0) H 01/13/17 10:09 HCO3 28.4 mEq/L (20.0-26.0) H 01/13/17 10:09 Base Excess 4.4 mEq/L (-3.0-3.0) H 01/13/17 10:09 O2 Saturation 100.0 % (92.0-100.0) 01/13/17 10:09 Jesus Test Positive 01/13/17 10:09 Vent Rate 14 01/13/17 10:09 Inspired O2 50 01/13/17 10:09 Tidal Volume 500 01/13/17 10:09 PEEP 5 01/13/17 10:09 Pressure (ins/psv/peep) NA 01/13/17 10:09 Critical Value LZHANG 01/13/17 10:09 Sodium 138 mEq/L (136-145) 01/16/17 05:06 Potassium 4.7 mEq/L (3.5-5.1) 01/16/17 05:06 Chloride 111 mEq/L (98-107) H 01/16/17 05:06 Carbon Dioxide 19.4 mEq/L (21.0-31.0) L 01/16/17 05:06 Anion Gap 12.3 (7.0-16.0) 01/16/17 05:06 BUN 18 mg/dL (7-25) 01/16/17 05:06 Creatinine 1.0 mg/dL (0.7-1.3) 01/16/17 05:06 Est GFR ( Amer) TNP 01/16/17 05:06 Est GFR (Non-Af Amer) TNP 01/16/17 05:06 BUN/Creatinine Ratio 18.0 01/16/17 05:06 Glucose 96 mg/dL (70-105) 01/16/17 05:06 Calcium 9.4 mg/dL (8.6-10.3) 01/16/17 05:06 Total Bilirubin 0.7 mg/dL (0.3-1.0) 01/13/17 04:45 AST 25 U/L (13-39) 01/13/17 04:45 ALT 22 U/L (7-52) 01/13/17 04:45 Alkaline Phosphatase 71 U/L (34-104) 01/13/17 04:45 Troponin I 0.02 ng/mL (0.01-0.05) 01/13/17 00:02 Total Protein 7.8 gm/dL (6.0-8.3) 01/13/17 04:45 Albumin 3.6 gm/dL (4.2-5.5) L 01/13/17 04:45 Globulin 4.2 gm/dL 01/13/17 04:45 Albumin/Globulin Ratio 0.9 (1.0-1.8) L 01/13/17 04:45 TSH 2.53 uIU/ml (0.34-5.60) 01/13/17 00:02 Urine Source CLEAN C 01/13/17 06:20 Urine Color YELLOW 01/13/17 06:20 Urine Clarity SL. CLOUDY (CLEAR) 01/13/17 06:20 Urine pH 7.5 01/13/17 06:20 Ur Specific [place] 1.020 (1.005-1.030) 01/13/17 06:20 Urine Protein NEGATIVE mg/dL (NEGATIVE) 01/13/17 06:20 Urine Glucose (UA) NEGATIVE mg/dL (NEGATIVE) 01/13/17 06:20 Urine Ketones NEGATIVE mg/dL (NEGATIVE) 01/13/17 06:20 Urine Blood NEGATIVE (NEGATIVE) 01/13/17 06:20 Urine Nitrate NEGATIVE (NEGATIVE) 01/13/17 06:20 Urine Bilirubin NEGATIVE (NEGATIVE) 01/13/17 06:20 Urine Urobilinogen 0.2 E.U./dL (0.2 - 1.0) 01/13/17 06:20 Ur Leukocyte Esterase NEGATIVE (NEGATIVE) 01/13/17 06:20 Urine RBC NONE SEEN /hpf (0-5) 01/13/17 06:20 Urine WBC 0-2 /hpf (0-5) 01/13/17 06:20 Ur Epithelial Cells MANY /lpf (FEW) 01/13/17 06:20 Urine Bacteria FEW /hpf (NONE SEEN) 01/13/17 06:20 Vancomycin Trough 22.4 ug/mL (10-20) H 01/16/17 05:06 Random Vancomycin 15.7 ug/mL (5.0-40.0) 01/14/17 16:00 - Physical Exam Vitals and I&O: Vital Signs Temp 98.3 F 01/16/17 08:00 Pulse 124 01/16/17 09:35 Resp 17 01/16/17 08:00 BP 122/78 01/16/17 09:30 Pulse Ox 100 01/16/17 09:35 Intake & Output 01/15/17 01/16/17 01/16/17 18:59 06:59 18:59 Intake Total 650 350 100 Output Total 650 Balance 0 350 100 Intake: Intake, IV Amount 50 350 Piperacillin Sodium/ 50 100 Tazobact 3.375 gm In Sodium Chloride 0.9% 50 ml @ 100 mls/hr IV Q8HR [facility] Rx#:[id number] Vancomycin HCl 1 gm In 250 Sodium Chloride 0.9% 250 ml @ 165 mls/hr IV Q12H [facility] Rx#:[id number] Oral 100 Tube Feeding 600 Output: Urine 650 Other: # Bowel Movements 3 Active Medications: Current Medications Acetaminophen (Tylenol 650mg/20.3ml Suspension) 650 mg GT Q4HR PRN PRN Reason: mild pain or temp >101 Stop: 03/14/17 03:32 Acetaminophen (Tylenol 650mg/20.3ml Suspension) 650 mg GT DAILY PRN PRN Reason: give 30mins prior to ROM excer Stop: 03/14/17 03:32 Albuterol Sulfate (Albuterol 2.5mg/3ml Neb Ud) 2.5 mg HHN Q3H PRN PRN Reason: sob/wheezing Stop: 03/14/17 03:32 Albuterol/Ipratropium (Duoneb Neb) 3 ml HHN Q6H [facility] Stop: 03/14/17 03:32 Last Admin: 01/16/17 07:12 Dose: 3 ml Amiodarone HCl (Cordarone) 200 mg GT DAILY [facility] Stop: 03/14/17 08:59 Last Admin: 01/16/17 09:31 Dose: 200 mg Amlodipine Besylate (Norvasc) 5 mg GT DAILY [facility] Stop: 03/14/17 08:59 Last Admin: 01/16/17 09:29 Dose: 5 mg Ascorbic Acid (Vitamin C) 500 mg GT DAILY [facility] Stop: 03/14/17 08:59 Last Admin: 01/15/17 14:01 Dose: 500 mg Aspirin (Aspirin Chewable) 81 mg GT DAILY [facility] Stop: 03/14/17 08:59 Last Admin: 01/16/17 09:31 Dose: 81 mg Atenolol (Tenormin) 12.5 mg GT DAILY [facility] Stop: 03/14/17 08:59 Last Admin: 01/16/17 09:30 Dose: 12.5 mg Bisacodyl (Dulcolax 10 Mg Supp) 10 mg RC DAILY PRN PRN Reason: Constipation Stop: 03/14/17 03:32 Budesonide (Pulmicort) 0.5 mg HHN DAILY [facility] Stop: 03/14/17 08:59 Last Admin: 01/16/17 07:12 Dose: 0.5 mg Chlorhexidine Gluconate (Peridex) 15 ml MM BID@0900,2100 [facility] Stop: 03/14/17 20:59 Last Admin: 01/15/17 21:00 Dose: 15 ml Ferrous Sulfate (Iron) 325 mg GT BID [facility] Stop: 03/14/17 08:59 Last Admin: 01/16/17 09:32 Dose: 325 mg Heparin Sodium (Porcine) (Heparin) 5,000 units SUBQ Q12HR [facility] Stop: 03/14/17 08:59 Last Admin: 01/16/17 09:32 Dose: 5,000 units Piperacillin Sod/Tazobactam (Sod 3.375 gm/ Sodium Chloride) 50 mls @ 100 mls/ hr IV Q8HR [facility] Stop: 03/14/17 04:59 Last Infusion: 01/16/17 06:00 Dose: Infused Vancomycin HCl 1 gm/ Sodium (Chloride) 250 mls @ 165 mls/hr IV Q24H [facility] Stop: 03/18/17 08:59 Lactobacillus Rhamnosus (Culturelle) 1 each PO DAILY [facility] Stop: 03/17/17 08:59 Last Admin: 01/16/17 09:29 Dose: 1 each Lactulose (Cephulac) 20 gm GT BID [facility] Stop: 03/14/17 08:59 Last Admin: 01/16/17 09:32 Dose: 20 gm Lorazepam (Ativan) 0.5 mg GT Q6H PRN; Protocol PRN Reason: Anxiety Stop: 03/14/17 03:32 Last Admin: 01/16/17 09:31 Dose: 0.5 mg Magnesium Hydroxide (Milk Of Magnesia) 30 ml GT HS PRN PRN Reason: Constipation Stop: 03/14/17 03:32 Miscellaneous (Probiotic Screen) 1 ea MC PRN PRN PRN Reason: PROTOCOL Stop: 03/16/17 13:20 Pantoprazole Sodium (Protonix) 40 mg GT DAILY [facility] Stop: 03/14/17 08:59 Last Admin: 01/16/17 09:31 Dose: 40 mg Tramadol HCl (Ultram) 50 mg GT Q6H PRN PRN Reason: muscle pain Stop: 03/14/17 03:32 Last Admin: 01/16/17 09:31 Dose: 50 mg General: Alert, No acute distress HEENT: Atraumatic Neck: Supple Cardiovascular: Regular rate Abdomen: Bowel sounds - Procedures Procedures: Procedures Procedure Code Date CHANGE FEEDING DEVICE IN UP INTEST TRACT, RELIGIOUS LEADER APPROACH [id number] 08/18/16 CHANGE GASTROSTOMY TUBE 48405 08/18/[address] GASTROSTOMY TUBE 93240 10/22/16 INSERTION OF FEEDING DEVICE INTO STOMACH, PERC APPROACH [id number] 10/22/16 RESPIRATORY VENTILATION, 24-96 CONSECUTIVE HOURS [id number] 01/13/17 RESPIRATORY VENTILATION, GREATER THAN 96 CONSECUTIVE HOURS [id number] 10/22/16 VENT MGMT INPAT INIT DAY 65447 01/13/17 VENT MGMT INPAT SUBQ DAY 39622 01/13/17 Assessment/Plan - Problem List Patient Problems: All Active Problems Cellulitis at gastrostomy tube site (Acute) K94.22, L03.319 GTUBE MALFUNCTION (Acute 06/07/16) Sepsis (Acute) Status post gastrostomy tube (G tube) placement, follow-up exam (Acute) Z09 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 Supraventricular tachycardia, paroxysmal (Acute) I47.1 - Plan Plan: monitor vitals/diet oxygen levels labs f/up consultants Nutritional Asmnt/Malnutr-PDOC - Dietary Evaluation Malnutrition Findings (Please click <Entered> for more info): Nutritional Asmnt/Malnutrition Start: 01/13/17 14: 49 Text: Status: Complete Freq: Document 01/13/17 14:49 GSUN (Rec: 01/13/17 15:05 GSUN [email or web address]) Nutritional Asmnt/Malnutrition Patient General Information Nutritional Screening Consult Diagnosis ER: hypoxia, encephalopathy, dysphagia Pertinent Medical Hx/Surgical Hx ER: HTN, CAD, CVA/TIA, dementia Subjective Information 86 year old male from SNF. RD consult received. Pt is PEG and vent dependent with trach, admitted due to malfunctioning of trach. Pt was awake, did not respond to RD, noted spastic lower extremities. Observed tube feeding off at time of visit, RN aware of x20hr schedule. Pt appears thin, moderate fat and muscle wasting to lower extremities noted. Obtained bedscale 129.7lb. Current Diet Order/ Nutrition Support Isosource 50ml/hr x 20hrs Pertinent Medications Vitamin C, Dulcolax, Iron, Cephulac, MOM, Protonix, IV Pertinent Labs Reviewed. Nutritional Hx/Data Height 1.57 m Height (Calculated Centimeters) 157.5 Current Weight (lbs) 58.831 kg Weight (Calculated Kilograms) 58.8 Weight (Calculated Grams) 08451.9 [place] Body Weight 118lb Weight Status Approriate GI Symptoms Difficult in: Swallowing Food Allergies No Cultural/Ethnic/Quaker Belief Unknown. Skin Integrity/Comment: [facility]: Jevity 1.5 at 50ml/hr x 20hrs. Flush 140ml Q4hrs. Estimated Nutritional Goals BEE in Kcals: Using Current wt Calories/Kcals/Kg CBW 129.7lb/59kg Kcals Calculated 1475-1770kcal (25-30kcal/kg) Protein: Using Current wt Protein Calculated 59g (1g/kg) Fluid: ml 1475-1770ml (1ml/kcal) Nutritional Problem 1. Problem Problem Difficulty swallowing related to Etiology dysphagia aeb Signs/Symptoms: PEG dependent, trach on vent Intervention/Recommendation Comments 1. Continue with Isosource at 50ml/hr x 20hrs, providing 1000ml total volume, 1500kcal, 68g protein, 764ml free water . 2. Recommend 150ml water flushes q6hrs when IV discontinued. Expected Outcomes/Goals Expected Outcomes/Goals 1. Pt to meet 100% estimated nutritional needs on tube feeding with tolerance.
[2017-01-16] MEDS: Chlorhexidine Gluconate 0.12% 15mL Mouthwash MM SCH (09:48)
--- NOTE | 2017-01-16 11:15 | Infectious Disease Prog Note ---
Infectious Disease Subjective - Review of Systems Service Date: 01/16/17 Subjective: Doing well. no fever. Infectious Disease Objective - Results Result Diagrams: 01/16/17 05:06 01/16/17 05:06 Recent Labs: Laboratory Last Values WBC 7.2 Th/cmm (4.8-10.8) 01/16/17 05:06 RBC 3.42 Mil/cmm (3.80-5.80) L 01/16/17 05:06 Hgb 11.7 gm/dL (12.6-17.4) L 01/16/17 05:06 Hct 34.1 % (39.0-49.0) L 01/16/17 05:06 MCV 99.7 fl (80-99) H 01/16/17 05:06 MCH 34.2 pg (27.0-31.0) H 01/16/17 05:06 MCHC Differential 34.3 pg (28.0-36.0) 01/16/17 05:06 RDW 15.0 % (11.5-20.0) 01/16/17 05:06 Plt Count 227 Th/cmm (150-400) 01/16/17 05:06 MPV 10.2 fl 01/16/17 05:06 Neutrophils % 65.0 % (40.0-80.0) 01/16/17 05:06 Band Neutrophils % 3 % (0-10) 01/13/17 00:02 Lymphocytes % 18.0 % (20.0-50.0) L 01/16/17 05:06 Monocytes % 14.2 % (2.0-10.0) H 01/16/17 05:06 Eosinophils % 2.5 % (0.0-5.0) 01/16/17 05:06 Basophils % 0.3 % (0.0-2.0) 01/16/17 05:06 Neutrophils (Manual) 80 % (40-80) 01/13/17 00:02 Lymphocytes 7 % (20-50) L 01/13/17 00:02 Monocytes 10 % (2-10) 01/13/17 00:02 Platelet Estimate ADEQUATE (NORMAL) 01/13/17 00:02 Specimen Source Arterial 01/13/17 10:09 Sample Site Left Radial 01/13/17 10:09 pH 7.47 (7.35-7.45) H 01/13/17 10:09 pCO2 39.0 mmHg (35.0-45.0) 01/13/17 10:09 pO2 169.0 mmHg (80.0-100.0) H 01/13/17 10:09 HCO3 28.4 mEq/L (20.0-26.0) H 01/13/17 10:09 Base Excess 4.4 mEq/L (-3.0-3.0) H 01/13/17 10:09 O2 Saturation 100.0 % (92.0-100.0) 01/13/17 10:09 Jesus Test Positive 01/13/17 10:09 Vent Rate 14 01/13/17 10:09 Inspired O2 50 01/13/17 10:09 Tidal Volume 500 01/13/17 10:09 PEEP 5 01/13/17 10:09 Pressure (ins/psv/peep) NA 01/13/17 10:09 Critical Value LZHANG 01/13/17 10:09 Sodium 138 mEq/L (136-145) 01/16/17 05:06 Potassium 4.7 mEq/L (3.5-5.1) 01/16/17 05:06 Chloride 111 mEq/L (98-107) H 01/16/17 05:06 Carbon Dioxide 19.4 mEq/L (21.0-31.0) L 01/16/17 05:06 Anion Gap 12.3 (7.0-16.0) 01/16/17 05:06 BUN 18 mg/dL (7-25) 01/16/17 05:06 Creatinine 1.0 mg/dL (0.7-1.3) 01/16/17 05:06 Est GFR ( Amer) TNP 01/16/17 05:06 Est GFR (Non-Af Amer) TNP 01/16/17 05:06 BUN/Creatinine Ratio 18.0 01/16/17 05:06 Glucose 96 mg/dL (70-105) 01/16/17 05:06 Calcium 9.4 mg/dL (8.6-10.3) 01/16/17 05:06 Total Bilirubin 0.7 mg/dL (0.3-1.0) 01/13/17 04:45 AST 25 U/L (13-39) 01/13/17 04:45 ALT 22 U/L (7-52) 01/13/17 04:45 Alkaline Phosphatase 71 U/L (34-104) 01/13/17 04:45 Troponin I 0.02 ng/mL (0.01-0.05) 01/13/17 00:02 Total Protein 7.8 gm/dL (6.0-8.3) 01/13/17 04:45 Albumin 3.6 gm/dL (4.2-5.5) L 01/13/17 04:45 Globulin 4.2 gm/dL 01/13/17 04:45 Albumin/Globulin Ratio 0.9 (1.0-1.8) L 01/13/17 04:45 TSH 2.53 uIU/ml (0.34-5.60) 01/13/17 00:02 Urine Source CLEAN C 01/13/17 06:20 Urine Color YELLOW 01/13/17 06:20 Urine Clarity SL. CLOUDY (CLEAR) 01/13/17 06:20 Urine pH 7.5 01/13/17 06:20 Ur Specific [place] 1.020 (1.005-1.030) 01/13/17 06:20 Urine Protein NEGATIVE mg/dL (NEGATIVE) 01/13/17 06:20 Urine Glucose (UA) NEGATIVE mg/dL (NEGATIVE) 01/13/17 06:20 Urine Ketones NEGATIVE mg/dL (NEGATIVE) 01/13/17 06:20 Urine Blood NEGATIVE (NEGATIVE) 01/13/17 06:20 Urine Nitrate NEGATIVE (NEGATIVE) 01/13/17 06:20 Urine Bilirubin NEGATIVE (NEGATIVE) 01/13/17 06:20 Urine Urobilinogen 0.2 E.U./dL (0.2 - 1.0) 01/13/17 06:20 Ur Leukocyte Esterase NEGATIVE (NEGATIVE) 01/13/17 06:20 Urine RBC NONE SEEN /hpf (0-5) 01/13/17 06:20 Urine WBC 0-2 /hpf (0-5) 01/13/17 06:20 Ur Epithelial Cells MANY /lpf (FEW) 01/13/17 06:20 Urine Bacteria FEW /hpf (NONE SEEN) 01/13/17 06:20 Vancomycin Trough 22.4 ug/mL (10-20) H 01/16/17 05:06 Random Vancomycin 15.7 ug/mL (5.0-40.0) 01/14/17 16:00 - Physical Exam Vitals and I&O: Vital Signs Temp 98.3 F 01/16/17 08:00 Pulse 70 01/16/17 10:00 Resp 18 01/16/17 10:00 BP 135/70 01/16/17 10:00 Pulse Ox 100 01/16/17 10:00 Intake & Output 01/15/17 01/16/17 01/16/17 18:59 06:59 18:59 Intake Total 650 350 100 Output Total 650 Balance 0 350 100 Intake: Intake, IV Amount 50 350 Piperacillin Sodium/ 50 100 Tazobact 3.375 gm In Sodium Chloride 0.9% 50 ml @ 100 mls/hr IV Q8HR [facility] Rx#:[id number] Vancomycin HCl 1 gm In 250 Sodium Chloride 0.9% 250 ml @ 165 mls/hr IV Q12H [facility] Rx#:[id number] Oral 100 Tube Feeding 600 Output: Urine 650 Other: # Bowel Movements 3 Active Medications: Current Medications Acetaminophen (Tylenol 650mg/20.3ml Suspension) 650 mg GT Q4HR PRN PRN Reason: mild pain or temp >101 Stop: 03/14/17 03:32 Acetaminophen (Tylenol 650mg/20.3ml Suspension) 650 mg GT DAILY PRN PRN Reason: give 30mins prior to ROM excer Stop: 03/14/17 03:32 Albuterol Sulfate (Albuterol 2.5mg/3ml Neb Ud) 2.5 mg HHN Q3H PRN PRN Reason: sob/wheezing Stop: 03/14/17 03:32 Albuterol/Ipratropium (Duoneb Neb) 3 ml HHN Q6H [facility] Stop: 03/14/17 03:32 Last Admin: 01/16/17 07:12 Dose: 3 ml Amiodarone HCl (Cordarone) 200 mg GT DAILY [facility] Stop: 03/14/17 08:59 Last Admin: 01/16/17 09:31 Dose: 200 mg Amlodipine Besylate (Norvasc) 5 mg GT DAILY [facility] Stop: 03/14/17 08:59 Last Admin: 01/16/17 09:29 Dose: 5 mg Ascorbic Acid (Vitamin C) 500 mg GT DAILY [facility] Stop: 03/14/17 08:59 Last Admin: 01/15/17 14:01 Dose: 500 mg Aspirin (Aspirin Chewable) 81 mg GT DAILY [facility] Stop: 03/14/17 08:59 Last Admin: 01/16/17 09:31 Dose: 81 mg Atenolol (Tenormin) 12.5 mg GT DAILY [facility] Stop: 03/14/17 08:59 Last Admin: 01/16/17 09:30 Dose: 12.5 mg Bisacodyl (Dulcolax 10 Mg Supp) 10 mg RC DAILY PRN PRN Reason: Constipation Stop: 03/14/17 03:32 Budesonide (Pulmicort) 0.5 mg HHN DAILY [facility] Stop: 03/14/17 08:59 Last Admin: 01/16/17 07:12 Dose: 0.5 mg Chlorhexidine Gluconate (Peridex) 15 ml MM BID@0900,2100 [facility] Stop: 03/14/17 20:59 Last Admin: 01/16/17 09:48 Dose: 15 ml Ferrous Sulfate (Iron) 325 mg GT BID [facility] Stop: 03/14/17 08:59 Last Admin: 01/16/17 09:32 Dose: 325 mg Heparin Sodium (Porcine) (Heparin) 5,000 units SUBQ Q12HR [facility] Stop: 03/14/17 08:59 Last Admin: 01/16/17 09:32 Dose: 5,000 units Piperacillin Sod/Tazobactam (Sod 3.375 gm/ Sodium Chloride) 50 mls @ 100 mls/ hr IV Q8HR [facility] Stop: 03/14/17 04:59 Last Infusion: 01/16/17 06:00 Dose: Infused Vancomycin HCl 1 gm/ Sodium (Chloride) 250 mls @ 165 mls/hr IV Q24H [facility] Stop: 03/18/17 08:59 Lactobacillus Rhamnosus (Culturelle) 1 each PO DAILY [facility] Stop: 03/17/17 08:59 Last Admin: 01/16/17 09:29 Dose: 1 each Lactulose (Cephulac) 20 gm GT BID [facility] Stop: 03/14/17 08:59 Last Admin: 01/16/17 09:32 Dose: 20 gm Lorazepam (Ativan) 0.5 mg GT Q6H PRN; Protocol PRN Reason: Anxiety Stop: 03/14/17 03:32 Last Admin: 03/24/17 09:31 Dose: 0.5 mg Magnesium Hydroxide (Milk Of Magnesia) 30 ml GT HS PRN PRN Reason: Constipation Stop: 03/14/17 03:32 Miscellaneous (Probiotic Screen) 1 ea MC PRN PRN PRN Reason: PROTOCOL Stop: 03/16/17 13:20 Pantoprazole Sodium (Protonix) 40 mg GT DAILY [facility] Stop: 03/14/17 08:59 Last Admin: 01/16/17 09:31 Dose: 40 mg Tramadol HCl (Ultram) 50 mg GT Q6H PRN PRN Reason: muscle pain Stop: 03/14/17 03:32 Last Admin: 01/16/17 09:31 Dose: 50 mg General: no acute distress, well developed, well nourished HEENT: atraumatic, normocephalic, PERRLA, EOMI, moist mucous membrane Neck: supple, tracheostomy Cardiovascular: S1S2, regular Lungs: clear to auscultation bilaterally, clear to percussion Abdomen: soft, other (g tube ok), no tender, no distended Extremities: no cyanosis, no clubbing, no edema Neurological: awake Skin: intact - Procedures Procedures: Procedures Procedure Code Date CHANGE FEEDING DEVICE IN UP INTEST TRACT, ABORIGINAL LIAISON OFFICER APPROACH [id number] 08/18/16 CHANGE GASTROSTOMY TUBE 99684 08/18/[address] GASTROSTOMY TUBE 14802 10/22/16 INSERTION OF FEEDING DEVICE INTO STOMACH, PERC APPROACH [id number] 10/22/16 RESPIRATORY VENTILATION, 24-96 CONSECUTIVE HOURS [id number] 01/13/17 RESPIRATORY VENTILATION, GREATER THAN 96 CONSECUTIVE HOURS [id number] 10/22/16 VENT MGMT INPAT INIT DAY 43005 01/13/17 VENT MGMT INPAT SUBQ DAY 81113 01/13/17 Infectious Disease Assmt/Plan - Problem List Patient Problems: All Active Problems Cellulitis at gastrostomy tube site (Acute) K94.22, L03.319 GTUBE MALFUNCTION (Acute 06/07/16) Sepsis (Acute) Status post gastrostomy tube (G tube) placement, follow-up exam (Acute) Z09 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 Supraventricular tachycardia, paroxysmal (Acute) I47.1 - Assessment Assessment: Impression: 1. Suspected aspiration pneumonia. 2. VDRF. 3. Dementia. 4. CVA. - Plan Plan: Continue vanco and zosyn for 5 to 7 days. Nutritional Asmnt/Malnutr-PDOC - Dietary Evaluation Malnutrition Findings (Please click <Entered> for more info): Nutritional Asmnt/Malnutrition Start: 01/13/17 14: 49 Text: Status: Complete Freq: Document 01/13/17 14:49 GSUN (Rec: 01/13/17 15:05 GSUN [email or web address]) Nutritional Asmnt/Malnutrition Patient General Information Nutritional Screening Consult Diagnosis ER: hypoxia, encephalopathy, dysphagia Pertinent Medical Hx/Surgical Hx ER: HTN, CAD, CVA/TIA, dementia Subjective Information 86 year old male from SNF. RD consult received. Pt is PEG and vent dependent with trach, admitted due to malfunctioning of trach. Pt was awake, did not respond to RD, noted spastic lower extremities. Observed tube feeding off at time of visit, RN aware of x20hr schedule. Pt appears thin, moderate fat and muscle wasting to lower extremities noted. Obtained bedscale 129.7lb. Current Diet Order/ Nutrition Support Isosource 50ml/hr x 20hrs Pertinent Medications Vitamin C, Dulcolax, Iron, Cephulac, MOM, Protonix, IV Pertinent Labs Reviewed. Nutritional Hx/Data Height 1.57 m Height (Calculated Centimeters) 157.5 Current Weight (lbs) 58.831 kg Weight (Calculated Kilograms) 58.8 Weight (Calculated Grams) 24425.9 [place] Body Weight 118lb Weight Status Approriate GI Symptoms Difficult in: Swallowing Food Allergies No Cultural/Ethnic/Orthodoxy Belief Unknown. Skin Integrity/Comment: [facility]: Jevity 1.5 at 50ml/hr x 20hrs. Flush 140ml Q4hrs. Estimated Nutritional Goals BEE in Kcals: Using Current wt Calories/Kcals/Kg CBW 129.7lb/59kg Kcals Calculated 1475-1770kcal (25-30kcal/kg) Protein: Using Current wt Protein Calculated 59g (1g/kg) Fluid: ml 1475-1770ml (1ml/kcal) Nutritional Problem 1. Problem Problem Difficulty swallowing related to Etiology dysphagia aeb Signs/Symptoms: PEG dependent, trach on vent Intervention/Recommendation Comments 1. Continue with Isosource at 50ml/hr x 20hrs, providing 1000ml total volume, 1500kcal, 68g protein, 764ml free water . 2. Recommend 150ml water flushes q6hrs when IV discontinued. Expected Outcomes/Goals Expected Outcomes/Goals 1. Pt to meet 100% estimated nutritional needs on tube feeding with tolerance.
[2017-01-16] MEDS: Ascorbic Acid 500 mg/5 mL UDC GT SCH (12:44)
--- NOTE | 2017-01-16 20:35 | History & Physical ---
HISTORY OF PRESENT ILLNESS: This is an 86-year-old male patient. The patient is known to have history of multiple medical problems, history of hypertension, history of CVA, history of status post trach, status post PEG. He is a subacute patient at [facility] and massive CVA in the past. He is unable to speak. Essentially, he was having increasing shortness of breath, found to have increasing secretion and he was transferred to [facility] and was seen in the Emergency Room and he was found to have pneumonia and was hypoxic and has encephalopathy. He was admitted. The patient's EKG also showed atrial fibrillation. PHYSICAL EXAMINATION: GENERAL: Elderly male patient, looks very ill, short of breath, is status post trach, status post PEG, is sweating, perspiring, and his pulse ox is 94. HEENT: Head examination is normal. LUNGS: Bilateral rales and rhonchi. CARDIOVASCULAR SYSTEM: S1, S2 heard. ABDOMEN: Soft. G-tube was noted in place. EXTREMITIES: He is moving all his extremities. LABORATORY DATA: Noted and he was hypoxic. DIAGNOSES: Hypoxia, respiratory failure, pneumonia, history of CVA, history of encephalopathy and encephalopathy now and also rule out sepsis. PLAN: The patient is being admitted and I will go ahead and give IV antibiotics . Dr. Noe Nelson see the patient, the ID doctor, for sepsis and the Pulmonary doctor, Dr. Echeverria. I will follow the patient. JOB# [id number]
--- NOTE | 2017-01-19 21:33 | Discharge Summary ---
HOSPITAL COURSE: The patient was admitted from [facility] to the Emergency Room due to increasing secretion in the tracheostomy. From the Emergency Room, the patient was found to have pneumonia and also having encephalopathy. The patient was ended up being admitted to the ICU for closer monitoring. Then from ICU, the patient was treated with the series of IV antibiotics and afterwards the patient was discharged back to [facility]. DISCHARGE DIAGNOSES: 1. Pneumonia, possible aspiration. 2. Vent-dependent respiratory failure. 3. Dysphagia. 4. Dementia. 5. Hypertension. 6. History of cerebrovascular accident. 7. Cellulitis at gastrostomy tube site. DISCHARGE INSTRUCTIONS: The patient will be discharged to [facility] (formerly [facility]) and will follow up with the primary doctor. [facility]# [id number]
--- NOTE | 2017-01-20 03:39 | Discharge Summary ---
HISTORY OF PRESENT ILLNESS AND HOSPITAL COURSE: This is unfortunate 86-year-old male patient known to have history of multiple problems, including history of multiple stroke ____ and history of respiratory failure, status post tracheostomy, status post G-tube. The patient has encephalopathy. The patient was ____ sepsis and was treated in the ICU ____ [facility]. The patient improved. The patient was in stable condition on 01/16/2017. The patient was admitted on 01/13/2017, was discharged back to [facility] where I will be following. The patient's condition at the time of discharge was stable. ____ reconciliation sheet. I will be following the patient. [facility]# [id number]
== END 2017-01-16 17:55 | DRG 208 ==
LOC: ER 23:32 → ICU 01-13 01:44
PROVIDERS: ADMIT Internal Medicine; ATTEND Internal Medicine
PROC: 5A1945Z Respiratory Ventilation, 24-96 Consecutive Hours (ICD-10-PCS; principal; 2017-01-13)
DX: J69.0 Pneumonitis due to inhalation of food and vomit (principal); Z99.11 Dependence on respirator [ventilator] status; G93.40 Encephalopathy, unspecified; J96.11 Chronic respiratory failure with hypoxia; Z93.0 Tracheostomy status; N39.0 Urinary tract infection, site not specified; I10 Essential (primary) hypertension; I48.91 Unspecified atrial fibrillation; I25.10 Atherosclerotic heart disease of native coronary artery without angina pectoris; F03.90 Unspecified dementia, unspecified severity, without behavioral disturbance, psychotic disturbance, mood disturbance, and anxiety; R13.10 Dysphagia, unspecified; K21.9 Gastro-esophageal reflux disease without esophagitis; F41.9 Anxiety disorder, unspecified; Z93.1 Gastrostomy status; Z86.73 Personal history of transient ischemic attack (TIA), and cerebral infarction without residual deficits
CPT/HCPCS: 36415-UA; 36600-90; 71010-TC; 71250-TC; 80048-TC; 80053-TC; 80202-TC; 81001-TC; 82803-TC; 84443-TC; 84484-TC; 85007-TC; 85025-TC; 85027-TC; 87070; 87086-90; 87230-TC; 93005; 94002; 94003; 96374; J0696; J1644; J2543; J3370; J7040; Z7610

== ENCOUNTER 2017-11-30 15:53 | Inpatient (IN) | payer MEDICARE, MEDICAID ==
[2017-11-30] MEDS ORDERED: Multivitamin Inj 10 ML, Thiamine HCL 100 MG, Magnesium Sulfate 2 GM, Folic Acid 1 MG in... IV ONE (16:36)
[2017-11-30 18:06] LABS: BASOPHILE ABSOLUTE 0.1 Th/cumm (0-0.2); EOSINOPHILE ABSOLUTE 0.2 Th/cmm (0.1-0.4); LYMPHOCYTE ABSOLUTE 0.7 Th/cmm (1.5-3.0); MEAN CELL VOLUME 96.2 fl (80-99); MEAN CORPUSCULAR HEMOGLOBIN 32.5 pg (27.0-31.0); MEAN CORPUSCULAR HGB CONC 33.7 pg (28.0-36.0); MEAN PLATELET VOLUME 7.3 fl; MONOCYTE ABSOLUTE 1.1 Th/cmm (0.3-1.0); NEUTROPHILE ABSOLUTE 7.4 Th/cmm (1.8-8.0); RED BLOOD COUNT 2.88 Mil/cmm (3.80-5.80); RED CELL DISTRIBUTION WIDTH 14.9 % (11.5-20.0); WHITE BLOOD COUNT 9.5 Th/cmm (4.8-10.8)
[2017-11-30 18:09] LABS: HEMATOCRIT 27.7 % (41.0-60); HEMOGLOBIN 9.4 gm/dL (12-16); PLATELET COUNT 403 Th/cmm (150-400)
[2017-11-30] MEDS ORDERED: Piperacillin Sodium/Tazobact 3.375 gm Vial IV ONE (18:20)
[2017-11-30 18:27] LABS: ALB/GLOB RATIO 0.9 (1.0-1.8); ALBUMIN 3.1 gm/dL (4.2-5.5); ALKALINE PHOSPHATASE 200 U/L (34-104); ANION GAP 10.5 (7.0-16.0); BILIRUBIN,TOTAL 0.5 mg/dL (0.3-1.0); BUN - UREA NITROGEN 17 mg/dL (7-25); CALCIUM SERUM 8.8 mg/dL (8.6-10.3); CARBON DIOXIDE 24.9 mEq/L (21.0-31.0); CHLORIDE 97 mEq/L (98-107); CREATININE - SERUM 0.6 mg/dL (0.7-1.3); GLUCOSE 96 mg/dL (70-105); POTASSIUM SERUM 4.4 mEq/L (3.5-5.1); SGOT 24 U/L (13-39); SGPT/ALT 22 U/L (7-52); SODIUM SERUM 128 mEq/L (136-145); TOTAL PROTEIN,SERUM 6.5 gm/dL (6.0-8.3)
--- NOTE | 2017-11-30 19:32 | ER Physician Documentation ---
DATE OF SERVICE: 11/30/2017 EMERGENCY ROOM EVALUATION AND TREATMENT HISTORY OF PRESENT ILLNESS: An 86-year-old male patient is on a respirator with tracheostomy. When he came to the Emergency Room, he was triaged by Dereck. His chief complaint is scrotal swelling and shortness of breath and the patient himself cannot give any history. The patient was triaged by the nurse. Dr. Dubose is the patient's primary care physician. The patient was brought by the ambulance from [facility]. The triage nurse found that the patient's temperature was 98.6, pulse of 77, respirations 23, blood pressure 129/85, saturation 100%, height of 5 feet 8 inches, weight 124 pounds. The patient is not taking any antibiotics. HOSPITAL COURSE: The patient is an 86-year-old male. He does not complain of anything, he cannot speak. He has a G-tube. He has an enlarged collected scrotum. REVIEW OF SYSTEMS: The patient's symptoms could not be obtained. The patient had some lab workup [facility], which will let me tell you that on November 05, his white count showed 5.41, hemoglobin 11.5, hematocrit 35.1 and neutrophils were 66.7, lymphocytes was 13.9, monocytes 114, absolute neutrophil is 3.61%, absolute lymphocyte is 0.75. Glucose is 108, this was on 10/27/2017, today is 11/30/2017. The patient had knee AP or lateral x-ray done which showed mild osteoarthritis of the left knee. So what I see from the things that came [facility], I will be dictating it out to you and then I will give you my physical examination findings and then will give you the diagnosis and then will give you the treatment part on this point. His blood glucose level on 10/27/2017 was 108, BUN 17, creatinine 0.69 and sodium of 127, potassium 5, chloride 96, uric acid of 2 liters. White blood count of 6.8, hemoglobin 11, hematocrit 32.2. Serum ferritin level was 261, which is within normal limits, especially considering the patient's COPD. I did find some consultation report on the patient which was done by Dr. Alvina Kamara who mentions that the patient is an 86-year-old was in the ICU and chest CT was performed and found to have fractures of 2 vertebra and the patient called Dr. Alvina Kamara who is an orthopedic surgeon regarding this fractures and the patient is ventilator dependent. He has a history of dysphagia. He has PEG. He has atrial fibrillation in the past. There is history of osteoarthritis, hypertension, anemia, anxiety. 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 Additional history was unavailable. IMAGING STUDIES: Done on 10/10/2017 showed that the patient has complete collapse of T4 vertebra which does not appear to be causing impingement on the spinal cord. Does not look to be acute. Also, partial collapse fracture of T11 vertebrae, mainly the superior endplate with some anterior wedging 15-20% loss of height. This too appears to be chronic and healed, so T4 and T11 fractures of the vertebra has been found to be old. There is no neurological involvement of any part was seen. Dr. Kulwant Echeverria with a pulmonary consultation advised that the patient to be getting nebulizer treatment, decrease the tidal volume, discontinue the PEEP to avoid any potential barotrauma and advised chest CT to be done for the patient. Dr. Echeverria is a support specialist, was called in by Dr. Dubose to see the patient. The patient was found to be comfortable when he saw the patient on 10/10/2017. The patient was brought here because the patient has massive swelling in the scrotum and the penile area. The patient has respiratory-dependent atrial fibrillation, osteoarthritis. On physical examination today, the patient appears to be semi-comatose and the patient's neck veins are distended. The patient overall has generalized anasarca including swelling in the legs. Tracheostomy tube is placed. Zamudio catheter is not seen and the patient has a tracheostomy tube. Neck veins are distended. Jugular pressure is elevated. Chest reveals trachea to be central and few bibasilar crackles are noted. Occasional rhonchi are heard. The patient in the past received antibiotics. There was no tracheal leaking. Chest x-ray does not show any definite tracheal leaking on and off. The patient's heart sounds are distant. S1, S2 well heard. Fourth heart sound is absent, third heart sound is absent. Abdomen is obese, otherwise benign and negative. CLINICAL IMPRESSION: The patient has generalized anasarca with massive scrotal as well as penile swelling. OTHER DIAGNOSES: Includes respiratory failure, unspecified whether it is because of hypoxia or whether it is because of hypercapnia. The patient is respiratory dependence. The patient has gastrostomy tube. The patient has a history of muscle weakness, history of pneumonia, history of anemia, history of tracheostomy, dysphagia, unspecified. The patient has encephalopathy, unspecified. The patient had cerebral infarction in the past, anxiety, essential hypertension, atrial fibrillation from time to time and the patient has been resistant to beta-lactam antibiotics. The patient did have cellulitis in the left lower extremity and peripheral vascular disease, atherosclerotic heart disease of the [place] coronary artery without angina pectoris is present. The plan is to admit the patient, ordered some lab workup and things, then let Dr. Dubose be called and he will decide whether to admit the patient. Most likely will admit the patient and maybe patient's albumin level is very low. We will get the serum albumin globulin level to be done. When he came here, his blood pressure was 119/79. FINAL DIAGNOSIS: Besides penile swelling, respiratory failure, respiratory-dependent dysphagia, attention to gastrostomy resistant to other specified beta-lactam antibiotics. The patient has all the other diagnosis that I mentioned above holds true in the form of cerebral dementia, hypoxia, muscle weakness, cardiac arrhythmias, coronary artery disease, not getting angina pectoris because he cannot utter any words. JOB# [id number]
[2017-11-30 20:05] LABS: TOTAL CELLS COUNTED 100
[2017-11-30 20:06] LABS: BAND NEUTROPHILE 5 % (0-10); EOSINOPHIL 4 % (0-5); LYMPHOCYTE 9 % (20-50); MONOCYTE 13 % (2-10); NEUTROPHILS 68 % (40-80)
[2017-11-30 20:07] LABS: HYPOCHROMIA 1+
[2017-11-30] MEDS ORDERED: Pneumococcal Vaccine 0.5 mL Vial IM ONE (23:55)
[2017-12-01] MEDS: Albuterol/Ipratropium Neb 3 ML AERS HHN SCH ×4 (01:08→19:05)
[2017-12-01 04:45] LABS: URINE MICROSCOPIC INDICATED? YES; URINE SOURCE FOLEY PORT
[2017-12-01 04:58] LABS: URINE BILIRUBIN NEGATIVE (NEGATIVE); URINE CLARITY CLEAR (CLEAR); URINE COLOR YELLOW; URINE GLUCOSE (UA) NEGATIVE (NEGATIVE); URINE KETONE NEGATIVE (NEGATIVE)
[2017-12-01 04:59] LABS: URINE BLOOD TRACE (NEGATIVE); URINE LEUKOCYTE ESTERASE TRACE (NEGATIVE); URINE NITRATE NEGATIVE (NEGATIVE); URINE PROTEIN NEGATIVE (NEGATIVE); URINE UROBILINOGEN 0.2 E.U./dL (0.2 - 1.0)
[2017-12-01 05:01] LABS: URINE BACTERIA OCCASIONAL /hpf (NONE SEEN); URINE EPITHELIAL CELLS OCCASIONAL /lpf (FEW); URINE WBC 0-2 /hpf (0-5); URINE YEAST FEW /hpf (NONE SEEN)
[2017-12-01 05:30] LABS: % BASOPHILS 0.6 % (0.0-2.0); % EOSINOPHILS 2.6 % (0.0-5.0); % LYMPHOCYTES 8.5 % (20.0-50.0); % MONOCYTES 12.7 % (2.0-10.0); % NEUTROPHILS 75.6 % (40.0-80.0); EOSINOPHILE ABSOLUTE 0.2 Th/cmm (0.1-0.4); HEMATOCRIT 26.2 % (41.0-60); HEMOGLOBIN 8.7 gm/dL (12-16); LYMPHOCYTE ABSOLUTE 0.6 Th/cmm (1.5-3.0); MEAN CELL VOLUME 96.1 fl (80-99); MEAN CORPUSCULAR HGB CONC 33.3 pg (28.0-36.0); MEAN PLATELET VOLUME 7.4 fl; NEUTROPHILE ABSOLUTE 5.8 Th/cmm (1.8-8.0); PLATELET COUNT 415 Th/cmm (150-400); RED BLOOD COUNT 2.73 Mil/cmm (3.80-5.80); RED CELL DISTRIBUTION WIDTH 15.3 % (11.5-20.0); WHITE BLOOD COUNT 7.6 Th/cmm (4.8-10.8)
[2017-12-01 05:46] LABS: ALB/GLOB RATIO 0.9 (1.0-1.8); ALBUMIN 2.8 gm/dL (4.2-5.5); ALKALINE PHOSPHATASE 181 U/L (34-104); BILIRUBIN,TOTAL 0.5 mg/dL (0.3-1.0); BUN - UREA NITROGEN 19 mg/dL (7-25); CALCIUM SERUM 8.3 mg/dL (8.6-10.3); CARBON DIOXIDE 27.9 mEq/L (21.0-31.0); CHLORIDE 96 mEq/L (98-107); CREATININE - SERUM 0.7 mg/dL (0.7-1.3); GLUCOSE 114 mg/dL (70-105); POTASSIUM SERUM 3.9 mEq/L (3.5-5.1); SGOT 21 U/L (13-39); SGPT/ALT 19 U/L (7-52); SODIUM SERUM 129 mEq/L (136-145); TOTAL PROTEIN,SERUM 6.1 gm/dL (6.0-8.3)
[2017-12-01] MEDS: Chlorhexidine Gluconate 0.12% 15mL Mouthwash MM SCH ×2 (07:55→21:54)
--- NOTE | 2017-12-01 08:45 | Diagnostic Imaging Report ---
Exam: Portable chest x-ray HISTORY: Pneumonia congestion. Findings: Portable examination of the chest at 0756 hours reviewed and compared to prior study of 10/13/2017. The study demonstrates cardiomegaly. Mild congestion is present. Mediastinal structures midline. There is evidence for left basilar infiltrate with superimposed small effusion. Visualized bony thorax is intact. Degenerative osteopenia is noted. IMPRESSION 1. Cardiomegaly congestion. 2. Left basilar atelectasis pleural effusion versus pleural thickening. Follow-up examination is recommended.
[2017-12-01] MEDS ORDERED: Chlorhexidine Gluconate 0.12% 480mL Bottle MM SCH (09:00)
[2017-12-01] MEDS: Aspirin 81mg Chewable Tab GT SCH (09:14)
[2017-12-01] MEDS ORDERED: VTE Chemical Prophylaxis Screen/Admission MC PRN (09:45)
--- NOTE | 2017-12-01 12:35 | History and Physical ---
History of Present Illness - HPI Chief Complaint: sob , scrotal swelling HPI: This is a 86 year old male resident of [facility] brought to [facility] for sob and scrotal swelling Vital Signs: Last Vital Signs Temp 98.0 F 12/01/17 08:00 Pulse 94 12/01/17 11:00 Resp 19 12/01/17 09:00 BP 125/74 12/01/17 09:14 Pulse Ox 99 12/01/17 11:00 Family Medical History - Family Member Nephew History Unknown: Yes Ethnicity: Unknown Living Status: Unknown Mother History Unknown: Yes Ethnicity: Unknown Living Status: Unknown Father History Unknown: Yes Ethnicity: Unknown Living Status: Unknown Social History Smoke: No Alcohol: None Drugs: None Lives: Senior Living - Medications Home Medications: Home Medication Medication Instructions Recorded Type Acetaminophen [Tylenol 650 mg GT DAILY PRN #0 udc 01/16/17 Rx 650mg/20.3mL Suspension] Acetaminophen [Tylenol 650 mg GT Q4HR PRN #0 udc 01/16/17 Rx 650mg/20.3mL Suspension] Bisacodyl [Dulcolax 10 Mg Supp] 10 mg RC DAILY PRN #0 sup 01/16/17 Rx Magnesium Hydroxide [Milk of 30 ml GT HS PRN #0 udc 01/16/17 Rx Magnesia] Amiodarone [Cordarone] 200 mg GT DAILY 10/10/17 History Aspirin [Aspirin Chewable] 81 mg GT DAILY 10/10/17 History Chlorhexidine Gluconate 0.12% 15 ml MM BID 10/10/17 History [Peridex] Docusate Sodium [Colace] 100 mg GT DAILY 10/10/17 History Ferrous Sulfate [Iron] 7.5 ml GT BID 10/10/17 History Heparin Sodium [Heparin*] 5,000 units SUBQ Q12HR 10/10/17 History Lactulose [Cephulac] 30 ml GT BID 10/10/17 History Metoprolol Tartrate 25 mg GT DAILY 10/10/17 History Multivitamin w/ Minerals 1 tab GT DAILY 10/10/17 History [Theragran M] Omeprazole 20 mg GT DAILY 10/10/17 History Sodium Chloride Tab [NaCL Tab] 2 gm GT BID 10/10/17 History Tramadol HCl [Ultram] 50 mg GT Q6H PRN 10/10/17 History amLODIPine Besylate [Norvasc] 5 mg GT DAILY 10/10/17 History Albuterol/Ipratropium Neb [Duoneb 3 ml HHN Q6HR 11/30/17 History Neb] Clotrimazole 1% Cream [Lotrimin 1% 1 appl TP TID 11/30/17 History Cream] Silvadene Cream 1 unit TP DAILY 11/30/17 History - Allergies Allergies/Adverse Reactions: Allergies Allergy/AdvReac Type Severity Reaction Status Date / Time No Known Allergies Allergy Verified 01/12/17 23:34 Review of Systems - Review of Systems Constitutional: Report: No Significant Eyes: Report: No Significant ENT: Report: No Significant Respiratory: Report: No Significant Cardiovascular: Report: No Significant Gastrointestinal: Report: No Significant Genitourinary: Report: No Significant Musculoskeletal: Report: No Significant Neurological: Report: No Significant Physical Exam - Physical Exam HEENT: Report: Ears Nose Throat within normal limits Neck: Report: Within normal limits Cardiovascular Systems: Report: +s1/s2 noted, Regular, Rate and Rhythm Respiratory: Report: Rhonchi Abdomen: Report: Non-tender to palpation Back: Report: Inspection of back is within normal limits. Extremities: Report: Non-tender to palpation. - Lab Results All Lab Results last 24 hours: Laboratory Results - last 24 hr 12/01/17 12/01/17 12/01/17 03:00 05:20 05:20 WBC 7.6 RBC 2.73 L Hgb 8.7 L Hct 26.2 L MCV 96.1 MCH 32.0 H MCHC Differential 33.3 RDW 15.3 Plt Count 415 H MPV 7.4 Neutrophils % 75.6 Lymphocytes % 8.5 L Monocytes % 12.7 H Eosinophils % 2.6 Basophils % 0.6 Sodium 129 L Potassium 3.9 Chloride 96 L Carbon Dioxide 27.9 Anion Gap 9.0 BUN 19 Creatinine 0.7 Est GFR ( Amer) TNP Est GFR (Non-Af Amer) TNP BUN/Creatinine Ratio 27.1 Glucose 114 H Calcium 8.3 L Total Bilirubin 0.5 AST 21 ALT 19 Alkaline Phosphatase 181 H Total Protein 6.1 Albumin 2.8 L Globulin 3.3 Albumin/Globulin Ratio 0.9 L Urine Source [place] Urine Color YELLOW Urine Clarity CLEAR Urine pH 7.0 Ur Specific [place] 1.015 Urine Protein NEGATIVE Urine Glucose (UA) NEGATIVE Urine Ketones NEGATIVE Urine Blood TRACE Urine Nitrate NEGATIVE Urine Bilirubin NEGATIVE Urine Urobilinogen 0.2 Ur Leukocyte Esterase TRACE H Urine RBC 2-5 H Urine WBC 0-2 Ur Epithelial Cells OCCASIONAL Urine Bacteria OCCASIONAL Urine Yeast FEW H - Assessment Assessment: Current Active Problems Problem Status Onset SCROTAL SWELLING Acute chronic respiratory failure vdrf dysphagia - Plan Plan: vent support empiric ivabx urology consult scrotal u/s follow up labs in am continue current orders
[2017-12-01] MEDS ORDERED: Magnesium Hydroxide (MOM) 30 mL UDC GT PRN (12:37)
[2017-12-01] MEDS: cefTRIAXone 1 GM in Sodium Chloride 0.9% 50 ML IV SCH (14:47)
[2017-12-01] MEDS: Ferrous Sulfate 300 MG/5 ML UDC GT SCH (17:45)
[2017-12-01] MEDS: Lactulose 10 Gm/15 mL 30mL UDC GT SCH (17:45)
[2017-12-01] MEDS ORDERED: Simethicone 20 mg/0.3 mL 30mL Bottle PO PRN (20:12)
--- NOTE | 2017-12-01 21:51 | Consultation ---
DATE OF CONSULTATION: 12/01/2017 REFERRING PHYSICIAN: Dr. Dubose. Thank you very much Dr. Dubose for this consultation. HISTORY OF PRESENT ILLNESS: The patient is known to me with history of chronic respiratory failure, pulmonary edema, which is ventilatory dependent, [facility] resident, was admitted for increasing swelling scrotum and some congestion and started on IV Lasix. He is done really well since last night, appears to be comfortable. PHYSICAL EXAMINATION: GENERAL: Awake, in no distress. VITAL SIGNS: Temperature 97.8, pulse is 91, respirations 14, and blood pressure 92/67, and saturation 100% on 30% oxygen. HEENT: Atraumatic and normocephalic. Pupils equal and reactive to light and accommodation. Ears, nose, and throat are normal. NECK: Supple. No JVD. CHEST: There are good breath sounds, few rhonchi. HEART: Regular rate and rhythm. ABDOMEN: Soft. EXTREMITIES: No edema. LABORATORY DATA: Sodium is 129, potassium 3.9, BUN is 19, creatinine 0.7, albumin 2.8. WBC 7.6, hemoglobin 8.7, hematocrit 26.2, and platelets is 415. BNP level is 421. Chest x-ray: Mild pulmonary congestion, cardiomegaly, tracheostomy tube in place. IMPRESSION: 1. This is an 86-year-old male with [id number] respiratory failure. 2. Pulmonary edema. 3. pneumonia. PLAN: 1. We will decrease Lasix 20 b.i.d., add potassium. 2. Nebulizer treatments. 3. Metoprolol. 4. Antibiotics empiric and followup chest x-ray. We will follow the patient with you. Thank you very much for this consultation. JOB# [id number] MTDD
[2017-12-02] MEDS: Albuterol/Ipratropium Neb 3 ML AERS HHN SCH ×4 (01:19→18:50)
[2017-12-02 04:35] LABS: % BASOPHILS 0.1 % (0.0-2.0); % EOSINOPHILS 1.5 % (0.0-5.0); % LYMPHOCYTES 12.5 % (20.0-50.0); % MONOCYTES 14.4 % (2.0-10.0); % NEUTROPHILS 71.5 % (40.0-80.0); EOSINOPHILE ABSOLUTE 0.1 Th/cmm (0.1-0.4); HEMOGLOBIN 9.7 gm/dL (12-16); LYMPHOCYTE ABSOLUTE 0.9 Th/cmm (1.5-3.0); MEAN CELL VOLUME 96.3 fl (80-99); MEAN CORPUSCULAR HEMOGLOBIN 31.9 pg (27.0-31.0); MEAN CORPUSCULAR HGB CONC 33.1 pg (28.0-36.0); MEAN PLATELET VOLUME 7.8 fl; NEUTROPHILE ABSOLUTE 5.1 Th/cmm (1.8-8.0); PLATELET COUNT 407 Th/cmm (150-400); RED BLOOD COUNT 3.03 Mil/cmm (3.80-5.80); RED CELL DISTRIBUTION WIDTH 15.8 % (11.5-20.0); WHITE BLOOD COUNT 7.1 Th/cmm (4.8-10.8)
[2017-12-02 04:51] LABS: HEMATOCRIT 29.2 % (41.0-60)
[2017-12-02 04:58] LABS: ALB/GLOB RATIO 0.8 (1.0-1.8); ALBUMIN 2.9 gm/dL (4.2-5.5); ALKALINE PHOSPHATASE 180 U/L (34-104); ANION GAP 10.8 (7.0-16.0); BILIRUBIN,TOTAL 0.4 mg/dL (0.3-1.0); BUN - UREA NITROGEN 20 mg/dL (7-25); CALCIUM SERUM 8.7 mg/dL (8.6-10.3); CARBON DIOXIDE 28.8 mEq/L (21.0-31.0); CHLORIDE 99 mEq/L (98-107); CREATININE - SERUM 0.7 mg/dL (0.7-1.3); GLUCOSE 97 mg/dL (70-105); POTASSIUM SERUM 3.6 mEq/L (3.5-5.1); SGOT 22 U/L (13-39); SGPT/ALT 20 U/L (7-52); SODIUM SERUM 135 mEq/L (136-145); TOTAL PROTEIN,SERUM 6.4 gm/dL (6.0-8.3)
--- NOTE | 2017-12-02 08:30 | Diagnostic Imaging Report ---
Exam: Scrotal ultrasound HISTORY: Swelling Findings Real-time ultrasound examination scrotum was performed multiple planes. The study demonstrates subcutaneous soft tissue swelling of the scrotum throughout. Right testicle measures 2.1 x 2 x 1.7 cm diameter, left testicle measures 2.2 x 1.9 x 1.5centimeters diameter. There is ill-defined the lucency in the right mid testicle measuring 4.4 mm diameter. Most likely represent small cysts. Bilateral hydroceles are noted, larger of the left side area Both testicles demonstrate inhomogeneous echo architecture ill-defined vascular flow. Inflammatory changes or orchitis cannot be excluded. The visualized. Normal. There is no evidence for varicoceles. IMPRESSION: 1. Inhomogeneous echo architecture testicle bilaterally question of orchitis 2. Bilateral hydroceles larger left side. 3. Subcutaneous soft tissue swelling of the scrotum, question cellulitis.
[2017-12-02] MEDS: Multivitamin w/ Minerals Tab GT SCH (09:29)
[2017-12-02] MEDS: Aspirin 81mg Chewable Tab GT SCH (09:30)
[2017-12-02] MEDS: Pantoprazole 40 mg/Packet GT SCH (09:30)
[2017-12-02] MEDS: Potassium Chloride Elixir 20 mEq /15 mL UDC GT SCH (09:31)
[2017-12-02] MEDS: Lactulose 10 Gm/15 mL 30mL UDC GT SCH ×2 (09:32→16:43)
[2017-12-02] MEDS: Ferrous Sulfate 300 MG/5 ML UDC GT SCH ×2 (09:33→16:42)
[2017-12-02] MEDS: Chlorhexidine Gluconate 0.12% 15mL Mouthwash MM SCH ×2 (09:45→20:13)
--- NOTE | 2017-12-02 09:47 | General Progress Note ---
Subjective - Review of Systems Events since last encounter: on vent no apparent distress Objective - Results Result Diagrams: 12/02/17 04:00 12/02/17 04:00 Recent Labs: Laboratory Last Values WBC 7.1 Th/cmm (4.8-10.8) 12/02/17 04:00 RBC 3.03 Mil/cmm (3.80-5.80) L 12/02/17 04:00 Hgb 9.7 gm/dL (12-16) L 12/02/17 04:00 Hct 29.2 % (41.0-60) L D 12/02/17 04:00 MCV 96.3 fl (80-99) 12/02/17 04:00 MCH 31.9 pg (27.0-31.0) H 12/02/17 04:00 MCHC Differential 33.1 pg (28.0-36.0) 12/02/17 04:00 RDW 15.8 % (11.5-20.0) 12/02/17 04:00 Plt Count 407 Th/cmm (150-400) H 12/02/17 04:00 MPV 7.8 fl 12/02/17 04:00 Neutrophils % 71.5 % (40.0-80.0) 12/02/17 04:00 Band Neutrophils % 5 % (0-10) 11/30/17 18:00 Lymphocytes % 12.5 % (20.0-50.0) L 12/02/17 04:00 Monocytes % 14.4 % (2.0-10.0) H 12/02/17 04:00 Eosinophils % 1.5 % (0.0-5.0) 12/02/17 04:00 Basophils % 0.1 % (0.0-2.0) 12/02/17 04:00 Neutrophils (Manual) 68 % (40-80) 11/30/17 18:00 Lymphocytes 9 % (20-50) L 11/30/17 18:00 Monocytes 13 % (2-10) H 11/30/17 18:00 Eosinophils 4 % (0-5) 11/30/17 18:00 Hypochromia 1+ 11/30/17 18:00 Macrocytosis 1+ 11/30/17 18:00 Sodium 135 mEq/L (136-145) L 12/02/17 04:00 Potassium 3.6 mEq/L (3.5-5.1) 12/02/17 04:00 Chloride 99 mEq/L (98-107) 12/02/17 04:00 Carbon Dioxide 28.8 mEq/L (21.0-31.0) 12/02/17 04:00 Anion Gap 10.8 (7.0-16.0) 12/02/17 04:00 BUN 20 mg/dL (7-25) 12/02/17 04:00 Creatinine 0.7 mg/dL (0.7-1.3) 12/02/17 04:00 Est GFR ( Amer) TNP 12/02/17 04:00 Est GFR (Non-Af Amer) TNP 12/02/17 04:00 BUN/Creatinine Ratio 28.6 12/02/17 04:00 Glucose 97 mg/dL (70-105) 12/02/17 04:00 Calcium 8.7 mg/dL (8.6-10.3) 12/02/17 04:00 Total Bilirubin 0.4 mg/dL (0.3-1.0) 12/02/17 04:00 AST 22 U/L (13-39) 12/02/17 04:00 ALT 20 U/L (7-52) 12/02/17 04:00 Alkaline Phosphatase 180 U/L (34-104) H 12/02/17 04:00 B-Natriuretic Peptide 421.0 pg/mL (5.0-100.0) H 11/30/17 18:00 Total Protein 6.4 gm/dL (6.0-8.3) 12/02/17 04:00 Albumin 2.9 gm/dL (4.2-5.5) L 12/02/17 04:00 Globulin 3.5 gm/dL 12/02/17 04:00 Albumin/Globulin Ratio 0.8 (1.0-1.8) L 12/02/17 04:00 Urine Source [place] 12/01/17 03:00 Urine Color YELLOW 12/01/17 03:00 Urine Clarity CLEAR (CLEAR) 12/01/17 03:00 Urine pH 7.0 (4.6 - 8.0) 12/01/17 03:00 Ur Specific [place] 1.015 (1.005-1.030) 02/06/18 03:00 Urine Protein NEGATIVE mg/dL (NEGATIVE) 12/01/17 03:00 Urine Glucose (UA) NEGATIVE mg/dL (NEGATIVE) 12/01/17 03:00 Urine Ketones NEGATIVE mg/dL (NEGATIVE) 12/01/17 03:00 Urine Blood TRACE (NEGATIVE) 12/01/17 03:00 Urine Nitrate NEGATIVE (NEGATIVE) 12/01/17 03:00 Urine Bilirubin NEGATIVE (NEGATIVE) 12/01/17 03:00 Urine Urobilinogen 0.2 E.U./dL (0.2 - 1.0) 12/01/17 03:00 Ur Leukocyte Esterase TRACE (NEGATIVE) H 12/01/17 03:00 Urine RBC 2-5 /hpf (0-5) H 12/01/17 03:00 Urine WBC 0-2 /hpf (0-5) 12/01/17 03:00 Ur Epithelial Cells OCCASIONAL /lpf (FEW) 12/01/17 03:00 Urine Bacteria OCCASIONAL /hpf (NONE SEEN) 12/01/17 03:00 Urine Yeast FEW /hpf (NONE SEEN) H 12/01/17 03:00 - Physical Exam Vitals and I&O: Vital Signs Temp 98.2 F 12/02/17 04:00 Pulse 105 12/02/17 09:37 Resp 161 12/02/17 05:00 BP 128/76 12/02/17 09:30 Pulse Ox 100 12/02/17 09:37 Intake & Output 12/01/17 12/02/17 12/02/17 18:59 06:59 18:59 Intake Total 660 600 Output Total 19890 Balance -1330 -1300 Weight (lbs) 63.412 kg 69.4 kg Intake: Intake, IV Amount 50 cefTRIAXone 1 gm In 50 Sodium Chloride 0.9% 50 ml @ 100 mls/hr IV Q24HR [facility] Rx#:[id number] Oral 110 Tube Feeding 550 550 Output: Urine 1989 1900 Stool 0 Other: # Bowel Movements 1 Active Medications: Current Medications Acetaminophen (Tylenol 650mg/20.3ml Suspension) 650 mg GT DAILY PRN PRN Reason: give 30mins prior to ROM excer Stop: 01/29/18 21:00 Last Admin: 11/30/17 21:55 Dose: 650 mg Acetaminophen (Tylenol 650mg/20.3ml Suspension) 650 mg GT Q4HR PRN PRN Reason: mild pain or temp >101 Stop: 01/29/18 21:00 Albuterol/Ipratropium (Duoneb Neb) 3 ml HHN Q6HRT [facility] Stop: 01/30/18 00:59 Last Admin: 12/02/17 07:25 Dose: 3 ml Amiodarone HCl (Cordarone) 200 mg GT DAILY LAURA Stop: 01/30/18 08:59 Last Admin: 12/02/17 09:28 Dose: 200 mg Amlodipine Besylate (Norvasc) 5 mg GT DAILY LAURA Stop: 01/30/18 08:59 Last Admin: 12/02/17 09:29 Dose: 5 mg Aspirin (Aspirin Chewable) 81 mg GT DAILY LAURA Stop: 01/30/18 08:59 Last Admin: 12/02/17 09:30 Dose: 81 mg Bisacodyl (Dulcolax 10 Mg Supp) 10 mg RC DAILY PRN PRN Reason: Constipation Stop: 01/29/18 21:00 Last Admin: 11/30/17 21:56 Dose: 10 mg Chlorhexidine Gluconate (Peridex) 15 ml MM 0800,1999 LAURA Stop: 01/30/18 07:59 Last Admin: 12/01/17 21:54 Dose: 15 ml Clotrimazole (Lotrimin 1% Cream) 1 appl TP TID LAURA Stop: 01/30/18 08:59 Last Admin: 12/02/17 09:34 Dose: 1 appl Docusate Sodium (Colace) 100 mg PO DAILY LAURA Stop: 01/31/18 08:59 Last Admin: 12/02/17 09:29 Dose: 100 mg Ferrous Sulfate (Iron) 450 mg GT BID LAURA Stop: 01/30/18 16:59 Last Admin: 12/02/17 09:33 Dose: 450 mg Furosemide (Lasix) 20 mg IVP BID [facility] Stop: 01/30/18 20:09 Last Admin: 12/02/17 09:30 Dose: 20 mg Heparin Sodium (Porcine) (Heparin) 5,000 units SUBQ Q12HR LAUAR Stop: 01/30/18 20:59 Last Admin: 12/02/17 09:31 Dose: 5,000 units Ceftriaxone Sodium 1 gm/ (Sodium Chloride) 50 mls @ 100 mls/hr IV Q24HR LAURA Stop: 01/30/18 13:59 Last Infusion: 12/01/17 20:44 Dose: Infused Lactulose (Cephulac) 20 gm GT BID LAURA Stop: 01/30/18 16:59 Last Admin: 12/02/17 09:32 Dose: 20 gm Magnesium Hydroxide (Milk Of Magnesia) 30 ml GT HS PRN PRN Reason: Constipation Stop: 01/30/18 12:36 Last Admin: 12/01/17 23:03 Dose: 30 ml Metoprolol Tartrate (Lopressor) 25 mg GT DAILY LAURA Stop: 01/31/18 08:59 Last Admin: 12/02/17 09:30 Dose: 25 mg Miscellaneous (Vte Chemical Prophylaxis Screen/ Admission) 1 ea MC PRN PRN PRN Reason: PROTOCOL Stop: 01/30/18 09:44 Pantoprazole Sodium (Protonix) 40 mg GT DAILY LAURA Stop: 01/31/18 08:59 Last Admin: 12/02/17 09:30 Dose: 40 mg Potassium Chloride (Potassium Chloride Elixir) 20 meq GT DAILY LAURA Stop: 01/31/18 08:59 Last Admin: 12/02/17 09:31 Dose: 20 meq Silver Sulfadiazine (Ssd) 1 appl TP DAILY LAURA Stop: 01/31/18 13:59 Simethicone (Mylicon) 80 mg PO BID PRN PRN Reason: Gas Stop: 01/31/18 09:43 Sodium Chloride (Saline Flush) 10 ml IV QSHIFT LAURA Stop: 01/29/18 22:22 Last Admin: 12/01/17 21:54 Dose: 10 ml Sodium Chloride (Nacl Tab) 2 gm GT BID LAURA Stop: 01/30/18 16:59 Last Admin: 12/02/17 09:28 Dose: 2 gm Tramadol HCl (Ultram) 50 mg GT Q6H PRN PRN Reason: Pain (Moderate) Stop: 01/30/18 12:36 General: No acute distress HEENT: Atraumatic Neck: Supple Lungs: Clear to auscultation Abdomen: Bowel sounds, Soft - Procedures Procedures: Procedures Procedure Code Date AIRWAYS SURGICAL PROCEDURE 78038 10/09/17 CHANGE FEEDING DEVICE IN UP INTEST TRACT, [employer] APPROACH [id number] 08/18/16 CHANGE GASTROSTOMY TUBE 56722 08/18/16 CHANGE TRACHEOSTOMY DEVICE IN TRACHEA, EXTERNAL APPROACH [id number] 10/09/[address] GASTROSTOMY TUBE 61346 10/22/16 EXCISION OF TRACHEA, ENDO, DIAGN [id number] 10/09/17 INSERTION OF FEEDING DEVICE INTO STOMACH, PERC APPROACH [id number] 10/22/16 RESPIRATORY VENTILATION, 24-96 CONSECUTIVE HOURS [id number] 11/30/17 RESPIRATORY VENTILATION, GREATER THAN 96 CONSECUTIVE HOURS [id number] 10/22/16 VENT MGMT INPAT INIT DAY 01/13/17 VENT MGMT INPAT SUBQ DAY 01/13/17 Assessment/Plan - Problem List Patient Problems: All Active Problems SCROTAL SWELLING (Acute) Cellulitis at gastrostomy tube site (Acute) K94.22, L03.319 GTUBE MALFUNCTION (Acute 06/07/16) Sepsis (Acute) Status post gastrostomy tube (G tube) placement, follow-up exam (Acute) Z09 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 Supraventricular tachycardia, paroxysmal (Acute) I47.1 - Plan Plan: vent support continue current orders Nutritional Asmnt/Malnutr-PDOC - Dietary Evaluation Malnutrition Findings (Please click <Entered> for more info): Nutritional Asmnt/Malnutrition Start: 12/01/17 16: 12 Text: Status: Active Freq: Document 12/01/17 16:12 RADHA (Rec: 12/01/17 16:34 RADHA [id number]) Nutritional Asmnt/Malnutrition Patient General Information Nutritional Screening High Risk Consult Diagnosis CHF, r/o sepsis Pertinent Medical Hx/Surgical Hx dysphagia, PEG, a fib, OA, HTN , anemia, anxiety, tracheostomy Subjective Information Consult received for billie < 12. Pt seen on vent at time of visit. TF was off at this time. Per nurse notes, pt tolerated well. Current Diet Order/ Nutrition Support Isosource 1.5, 55ml/hr x 20hr Pertinent Labs 2/6 Na 129, K 3.9, Cl 96, BUN 19, Cr 0.7, Glucose 114, Ca 8. 3, Alb 2.8 Nutritional Hx/Data Height 1.73 m Height (Calculated Centimeters) 172.7 Current Weight (lbs) 65.635 kg Weight (Calculated Kilograms) 65.6 Weight (Calculated Grams) 11198.8 [place]ora Body Weight 154 % Donora Body Weight 94 Body Mass Index (BMI) 21.9 Weight Status Approriate GI Symptoms GI Symptoms None Last BM no record Difficult in: None Skin Integrity/Comment: reddened to left adb, pressure area to left lateral foot, bruise to left arm Billie Carvalho Estimated Nutritional Goals BEE in Kcals: Using Current wt Calories/Kcals/Kg 25-30 Kcals Calculated 1636-3641 Protein: Using Current wt Protein g/k-1.2 Protein Calculated 67-80 Fluid: ml 1675-2010ml (1ml/kcal) Nutritional Problem No current Nutrition Prob Problem N/A Intervention/Recommendation Comments 1. Continue with current TF regimen. It provides 1650kcal, 74g protein, meeting 100% of nutritional needs. 2. Monitor TF rate, tolerance, wt weekly, skin integrity and labs 3. F/U as moderate risk in 3-5 days, 12/04-12/06 Expected Outcomes/Goals Expected Outcomes/Goals 1. Pt to meet at least 75% of nutritional needs via nutrition support with tolerance 2. Wt stability, skin to remain intact, labs to approach WNL.
[2017-12-02] MEDS: cefTRIAXone 1 GM in Sodium Chloride 0.9% 50 ML IV SCH (16:39)
[2017-12-03] MEDS: Albuterol/Ipratropium Neb 3 ML AERS HHN SCH ×5 (00:55→22:59)
--- NOTE | 2017-12-03 08:28 | Diagnostic Imaging Report ---
CHEST X-RAY: AP view INDICATION: Shortness of breath COMPARISON: 12/01/17 FINDINGS: Tracheostomy tube is stable. Mild congestive changes are seen with small left effusion. Cardiomegaly is noted. Generalized gas-distended bowel loops of bowel are seen within the upper abdomen. IMPRESSION: Mild congestive changes and small left effusion. Faint infiltrate of the left lung base cannot be excluded. Cardiomegaly.
--- NOTE | 2017-12-03 08:45 | General Progress Note ---
Subjective - Review of Systems Events since last encounter: on vent in no distress Objective - Results Result Diagrams: 12/02/17 04:00 12/02/17 04:00 Recent Labs: Laboratory Last Values WBC 7.1 Th/cmm (4.8-10.8) 12/02/17 04:00 RBC 3.03 Mil/cmm (3.80-5.80) L 12/02/17 04:00 Hgb 9.7 gm/dL (12-16) L 12/02/17 04:00 Hct 29.2 % (41.0-60) L D 12/02/17 04:00 MCV 96.3 fl (80-99) 12/02/17 04:00 MCH 31.9 pg (27.0-31.0) H 12/02/17 04:00 MCHC Differential 33.1 pg (28.0-36.0) 12/02/17 04:00 RDW 15.8 % (11.5-20.0) 12/02/17 04:00 Plt Count 407 Th/cmm (150-400) H 12/02/17 04:00 MPV 7.8 fl 12/02/17 04:00 Neutrophils % 71.5 % (40.0-80.0) 12/02/17 04:00 Band Neutrophils % 5 % (0-10) 11/30/17 18:00 Lymphocytes % 12.5 % (20.0-50.0) L 12/02/17 04:00 Monocytes % 14.4 % (2.0-10.0) H 12/02/17 04:00 Eosinophils % 1.5 % (0.0-5.0) 12/02/17 04:00 Basophils % 0.1 % (0.0-2.0) 12/02/17 04:00 Neutrophils (Manual) 68 % (40-80) 11/30/17 18:00 Lymphocytes 9 % (20-50) L 11/30/17 18:00 Monocytes 13 % (2-10) H 11/30/17 18:00 Eosinophils 4 % (0-5) 11/30/17 18:00 Hypochromia 1+ 11/30/17 18:00 Macrocytosis 1+ 11/30/17 18:00 Sodium 135 mEq/L (136-145) L 12/02/17 04:00 Potassium 3.6 mEq/L (3.5-5.1) 12/02/17 04:00 Chloride 99 mEq/L (98-107) 12/02/17 04:00 Carbon Dioxide 28.8 mEq/L (21.0-31.0) 12/02/17 04:00 Anion Gap 10.8 (7.0-16.0) 12/02/17 04:00 BUN 20 mg/dL (7-25) 12/02/17 04:00 Creatinine 0.7 mg/dL (0.7-1.3) 12/02/17 04:00 Est GFR ( Amer) TNP 12/02/17 04:00 Est GFR (Non-Af Amer) TNP 12/02/17 04:00 BUN/Creatinine Ratio 28.6 12/02/17 04:00 Glucose 97 mg/dL (70-105) 12/02/17 04:00 Calcium 8.7 mg/dL (8.6-10.3) 12/02/17 04:00 Total Bilirubin 0.4 mg/dL (0.3-1.0) 12/02/17 04:00 AST 22 U/L (13-39) 12/02/17 04:00 ALT 20 U/L (7-52) 12/02/17 04:00 Alkaline Phosphatase 180 U/L (34-104) H 12/02/17 04:00 B-Natriuretic Peptide 421.0 pg/mL (5.0-100.0) H 11/30/17 18:00 Total Protein 6.4 gm/dL (6.0-8.3) 12/02/17 04:00 Albumin 2.9 gm/dL (4.2-5.5) L 12/02/17 04:00 Globulin 3.5 gm/dL 12/02/17 04:00 Albumin/Globulin Ratio 0.8 (1.0-1.8) L 12/02/17 04:00 Urine Source [place] 12/01/17 03:00 Urine Color YELLOW 12/01/17 03:00 Urine Clarity CLEAR (CLEAR) 12/01/17 03:00 Urine pH 7.0 (4.6 - 8.0) 12/01/17 03:00 Ur Specific [place] 1.015 (1.005-1.030) 02/06/18 03:00 Urine Protein NEGATIVE mg/dL (NEGATIVE) 12/01/17 03:00 Urine Glucose (UA) NEGATIVE mg/dL (NEGATIVE) 12/01/17 03:00 Urine Ketones NEGATIVE mg/dL (NEGATIVE) 12/01/17 03:00 Urine Blood TRACE (NEGATIVE) 12/01/17 03:00 Urine Nitrate NEGATIVE (NEGATIVE) 12/01/17 03:00 Urine Bilirubin NEGATIVE (NEGATIVE) 12/01/17 03:00 Urine Urobilinogen 0.2 E.U./dL (0.2 - 1.0) 12/01/17 03:00 Ur Leukocyte Esterase TRACE (NEGATIVE) H 12/01/17 03:00 Urine RBC 2-5 /hpf (0-5) H 12/01/17 03:00 Urine WBC 0-2 /hpf (0-5) 12/01/17 03:00 Ur Epithelial Cells OCCASIONAL /lpf (FEW) 12/01/17 03:00 Urine Bacteria OCCASIONAL /hpf (NONE SEEN) 12/01/17 03:00 Urine Yeast FEW /hpf (NONE SEEN) H 12/01/17 03:00 - Physical Exam Vitals and I&O: Vital Signs Temp 98.2 F 12/03/17 04:00 Pulse 103 12/03/17 08:02 Resp 17 12/03/17 06:00 BP 134/91 12/03/17 06:00 Pulse Ox 100 12/03/17 08:02 Intake & Output 12/02/17 12/03/17 12/03/17 18:59 06:59 18:59 Intake Total 660 800 Output Total 760 1400 Balance -100 -600 Weight (lbs) 69.4 kg 69.428 kg Intake: Intake, IV Amount 50 cefTRIAXone 1 gm In 50 Sodium Chloride 0.9% 50 ml @ 100 mls/hr IV Q24HR [facility] Rx#:[id number] Tube Feeding 660 550 Other 200 Output: Urine 760 1400 Other: # Bowel Movements 0 1 Stool Characteristics Soft Brown Active Medications: Current Medications Acetaminophen (Tylenol 650mg/20.3ml Suspension) 650 mg GT DAILY PRN PRN Reason: give 30mins prior to ROM excer Stop: 01/29/18 21:00 Last Admin: 11/30/17 21:55 Dose: 650 mg Acetaminophen (Tylenol 650mg/20.3ml Suspension) 650 mg GT Q4HR PRN PRN Reason: mild pain or temp >101 Stop: 01/29/18 21:00 Albuterol/Ipratropium (Duoneb Neb) 3 ml HHN Q6HRT [facility] Stop: 01/30/18 00:59 Last Admin: 12/03/17 08:02 Dose: 3 ml Amiodarone HCl (Cordarone) 200 mg GT DAILY LAURA Stop: 01/30/18 08:59 Last Admin: 12/02/17 09:28 Dose: 200 mg Amlodipine Besylate (Norvasc) 5 mg GT DAILY LAURA Stop: 01/30/18 08:59 Last Admin: 12/02/17 09:29 Dose: 5 mg Aspirin (Aspirin Chewable) 81 mg GT DAILY LAURA Stop: 01/30/18 08:59 Last Admin: 12/02/17 09:30 Dose: 81 mg Bisacodyl (Dulcolax 10 Mg Supp) 10 mg RC DAILY PRN PRN Reason: Constipation Stop: 01/29/18 21:00 Last Admin: 11/30/17 21:56 Dose: 10 mg Chlorhexidine Gluconate (Peridex) 15 ml MM 0800,1999 LAURA Stop: 01/30/18 07:59 Last Admin: 12/02/17 20:13 Dose: 15 ml Clotrimazole (Lotrimin 1% Cream) 1 appl TP TID LAURA Stop: 01/30/18 08:59 Last Admin: 12/02/17 20:50 Dose: 1 appl Docusate Sodium (Colace) 100 mg PO DAILY LAURA Stop: 01/31/18 08:59 Last Admin: 12/02/17 09:29 Dose: 100 mg Ferrous Sulfate (Iron) 450 mg GT BID LAURA Stop: 01/30/18 16:59 Last Admin: 12/02/17 16:42 Dose: 450 mg Furosemide (Lasix) 20 mg IVP BID LAURA Stop: 01/30/18 20:09 Last Admin: 12/02/17 16:43 Dose: 20 mg Heparin Sodium (Porcine) (Heparin) 5,000 units SUBQ Q12HR LAURA Stop: 01/30/18 20:59 Last Admin: 12/02/17 20:47 Dose: 5,000 units Ceftriaxone Sodium 1 gm/ (Sodium Chloride) 50 mls @ 100 mls/hr IV Q24HR [facility] Stop: 01/30/18 13:59 Last Infusion: 12/02/17 19:00 Dose: Infused Lactulose (Cephulac) 20 gm GT BID LAURA Stop: 01/30/18 16:59 Last Admin: 12/02/17 16:43 Dose: 20 gm Magnesium Hydroxide (Milk Of Magnesia) 30 ml GT HS PRN PRN Reason: Constipation Stop: 01/30/18 12:36 Last Admin: 12/01/17 23:03 Dose: 30 ml Metoprolol Tartrate (Lopressor) 25 mg GT DAILY LAURA Stop: 01/31/18 08:59 Last Admin: 12/02/17 09:30 Dose: 25 mg Miscellaneous (Vte Chemical Prophylaxis Screen/ Admission) 1 ea [facility] PRN PRN PRN Reason: PROTOCOL Stop: 01/30/18 09:44 Pantoprazole Sodium (Protonix) 40 mg GT DAILY LAURA Stop: 01/31/18 08:59 Last Admin: 12/02/17 09:30 Dose: 40 mg Potassium Chloride (Potassium Chloride Elixir) 20 meq GT DAILY LAURA Stop: 01/31/18 08:59 Last Admin: 12/02/17 09:31 Dose: 20 meq Silver Sulfadiazine (Ssd) 1 appl TP DAILY LAURA Stop: 01/31/18 13:59 Last Admin: 12/02/17 20:50 Dose: 1 appl Simethicone (Mylicon) 80 mg PO BID PRN PRN Reason: Gas Stop: 01/31/18 09:43 Sodium Chloride (Saline Flush) 10 ml IV QSHIFT LAURA Stop: 01/29/18 22:22 Last Admin: 12/02/17 20:13 Dose: 10 ml Sodium Chloride (Nacl Tab) 2 gm GT BID LAURA Stop: 01/30/18 16:59 Last Admin: 12/02/17 16:42 Dose: 2 gm Tramadol HCl (Ultram) 50 mg GT Q6H PRN PRN Reason: Pain (Moderate) Stop: 01/30/18 12:36 Last Admin: 12/02/17 20:47 Dose: 50 mg General: No acute distress HEENT: Atraumatic Neck: Supple Lungs: Clear to auscultation Abdomen: Bowel sounds, Soft - Procedures Procedures: Procedures Procedure Code Date AIRWAYS SURGICAL PROCEDURE 42600 10/09/17 CHANGE FEEDING DEVICE IN UP INTEST TRACT, [employer]ES APPROACH 1H13VDP 08/18/16 CHANGE GASTROSTOMY TUBE 56986 08/18/16 CHANGE TRACHEOSTOMY DEVICE IN TRACHEA, EXTERNAL APPROACH [id number] 10/09/[address] GASTROSTOMY TUBE 45047 10/22/16 EXCISION OF TR[place], ENDO, DIAGN [id number] 10/09/17 INSERTION OF FEEDING DEVICE INTO STOMACH, PERC APPROACH 7PR12VZ 10/22/16 RESPIRATORY VENTILATION, 24-96 CONSECUTIVE HOURS [id number] 11/30/17 RESPIRATORY VENTILATION, GREATER THAN 96 CONSECUTIVE HOURS 1Z1336L 10/22/16 VENT MGMT INPAT INIT DAY 09401 01/13/17 VENT MGMT INPAT SUBQ DAY 40881 01/13/17 Assessment/Plan - Problem List Patient Problems: All Active Problems SCROTAL SWELLING (Acute) Cellulitis at gastrostomy tube site (Acute) K94.22, L03.319 GTUBE MALFUNCTION (Acute 06/07/16) Sepsis (Acute) Status post gastrostomy tube (G tube) placement, follow-up exam (Acute) Z09 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 Supraventricular tachycardia, paroxysmal (Acute) I47.1 - Plan Plan: vent support continue current orders Nutritional Asmnt/Malnutr-PDOC - Dietary Evaluation Malnutrition Findings (Please click <Entered> for more info): Nutritional Asmnt/Malnutrition Start: 12/01/17 16: 12 Text: Status: Active Freq: Document 12/01/17 16:12 [email or web address] (Rec: 12/01/17 16:34 [facility] Nutritional Asmnt/Malnutrition Patient General Information Nutritional Screening High Risk Consult Diagnosis CHF, r/o sepsis Pertinent Medical Hx/Surgical Hx dysphagia, PEG, a fib, OA, HTN , anemia, anxiety, tracheostomy Subjective Information Consult received for billie < 12. Pt seen on vent at time of visit. TF was off at this time. Per nurse notes, pt tolerated well. Current Diet Order/ Nutrition Support Isosource 1.5, 55ml/hr x 20hr Pertinent Labs 2/6 Na 129, K 3.9, Cl 96, BUN 19, Cr 0.7, Glucose 114, Ca 8. 3, Alb 2.8 Nutritional Hx/Data Height 1.73 m Height (Calculated Centimeters) 172.7 Current Weight (lbs) 65.635 kg Weight (Calculated Kilograms) 65.6 Weight (Calculated Grams) 71190.8 [place] Body Weight 154 % [place] Body Weight 94 Body Mass Index (BMI) 21.9 Weight Status Approriate GI Symptoms GI Symptoms None Last BM no record Difficult in: None Skin Integrity/Comment: reddened to left adb, pressure area to left lateral foot, bruise to left arm Billie Carvalho Estimated Nutritional Goals BEE in Kcals: Using Current wt Calories/Kcals/Kg 25-30 Kcals Calculated 5621-2310 Protein: Using Current wt Protein g/k-1.2 Protein Calculated 67-80 Fluid: ml 1675-2010ml (1ml/kcal) Nutritional Problem No current Nutrition Prob Problem N/A Intervention/Recommendation Comments 1. Continue with current TF regimen. It provides 1650kcal, 74g protein, meeting 100% of nutritional needs. 2. Monitor TF rate, tolerance, wt weekly, skin integrity and labs 3. F/U as moderate risk in 3-5 days, 12/04-12/06 Expected Outcomes/Goals Expected Outcomes/Goals 1. Pt to meet at least 75% of nutritional needs via nutrition support with tolerance 2. Wt stability, skin to remain intact, labs to approach WNL.
[2017-12-03] MEDS: Aspirin 81mg Chewable Tab GT SCH (08:46)
[2017-12-03] MEDS: Ferrous Sulfate 300 MG/5 ML UDC GT SCH ×2 (08:47→16:29)
[2017-12-03] MEDS: Lactulose 10 Gm/15 mL 30mL UDC GT SCH ×2 (08:48→16:30)
[2017-12-03] MEDS: Pantoprazole 40 mg/Packet GT SCH (08:49)
[2017-12-03] MEDS: Multivitamin w/ Minerals Tab GT SCH (08:49)
[2017-12-03] MEDS: Chlorhexidine Gluconate 0.12% 15mL Mouthwash MM SCH ×2 (09:00→19:28)
[2017-12-03] MEDS: Potassium Chloride Elixir 20 mEq /15 mL UDC GT SCH (09:00)
[2017-12-03] MEDS ORDERED: Probiotic Screen MC PRN (10:30)
[2017-12-03] MEDS: cefTRIAXone 1 GM in Sodium Chloride 0.9% 50 ML IV SCH (15:04)
[2017-12-03] MEDS: Diltiazem 5 mg/mL 5mL Vial IVP PRN (19:42)
[2017-12-03] MEDS: methylPREDNISolone SS 40 mg Vial IVP SCH (20:27)
[2017-12-04] MEDS: Albuterol/Ipratropium Neb 3 ML AERS HHN SCH ×6 (02:58→23:59)
--- NOTE | 2017-12-04 03:01 | Consultation ---
DATE OF CONSULTATION: 12/03/2017 REASON FOR CONSULTATION: Seen for massive scrotal swelling. HISTORY OF PRESENT ILLNESS: The patient is an 86-year-old who was admitted for massive scrotal swelling and shortness of breath. He was diagnosed as having anasarca as well as possible pneumonia or atelectasis or worsening of acute on chronic respiratory failure. He was treated with antibiotics and pulmonary toilet as well as IV Lasix for a short time and responded well. Currently, the scrotal swelling has reduced to almost 70-80% of what it was and his pulmonary status has significantly improved. However, he does have high blood pressure and atrial fibrillation, which are being treated in the ICU. PAST SURGICAL HISTORY: Tracheostomy, gastrostomy that we know of. MEDICAL HISTORY: Respiratory failure. PAST MEDICAL HISTORY: Hypertension, dementia and vegetative state. HOME MEDICATIONS: Tylenol, Dulcolax, magnesium hydroxide, amiodarone, aspirin, Colace, iron, lactulose, metoprolol, vitamins, omeprazole, tramadol, amlodipine, inhalers. SOCIAL HISTORY: senior living resident. ALLERGIES: None. REVIEW OF SYSTEMS: Came in for shortness of breath, which has improved. No chest pain, is G-tube dependent. No issues of sore throat. There were no seizures noted in the hospital. He did have irregular heartbeats being treated for atrial fibrillation. No vomiting or diarrhea noted here. Zamudio catheter has been in place for unknown periods of time without any blood or issues. PHYSICAL EXAMINATION: GENERAL: He is a nonverbal, contracted patient who does respond to pain. VITAL SIGNS: Heart rate 89, in atrial fibrillation. Blood pressure 125/91 on last check. O2 saturation 100% on the ventilator. Last temperature recorded 98.2. HEAD AND NECK: Normocephalic. Trachea central. No thyroid or lymph node masses. There is no jaundice. LUNGS: Coarse breath sounds. No deformities of the chest. Occasional rhonchi, no rales. CARDIOVASCULAR: Irregular rhythm, no murmur. ABDOMEN: Soft. G-tube in the left upper quadrant. No organomegaly, mass, or hernia. GENITALIA: Normal male. Scrotal edema or swelling noted, which is dramatically significantly less than on admission. Penis also has some edema, but the Zamudio catheter is draining well. EXTREMITIES: Contracted, but no pedal edema. NEUROLOGIC: Cannot be tested. However, he did seem to respond and move his whole body when he was stimulated. LABORATORY DATA: White count 7.1, hemoglobin 9.7. Both have been stable in the hospital. Adequate platelets, 5 bands on admission, which are not there anymore. Sodium 135, corrected from 128, creatinine 0.7, BUN 20. Alkaline phosphatase elevated to 180, no MRSA in the nares and sputum showed gram-negative rods, not identified. Chest x-ray showed possible atelectasis versus pleural effusion and scrotal ultrasound showed small bilateral hydrocele and significant scrotal edema. No evidence of any masses. IMPRESSION: 1. Scrotal edema and swelling as part of anasarca, fluid retention, possibly congestive heart failure, which has been corrected. Recommend continued elevation of the scrotum and of the lower half of his body to resolve the swelling and the edema. Skin care and Zamudio catheter care also recommended and explained to the nurses. 2. Hypertension, not very well controlled as yet. 3. Atrial fibrillation, being treated with amiodarone. 4. Dementia. No change. 5. Nonverbal vegetative state, no change. 6. Ventilator and NG tube dependency, tolerating both quite well. JOB# [id number]
[2017-12-04] MEDS: methylPREDNISolone SS 40 mg Vial IVP SCH ×3 (04:51→21:24)
[2017-12-04] MEDS: Ferrous Sulfate 300 MG/5 ML UDC GT SCH ×2 (08:45→16:40)
[2017-12-04] MEDS: Potassium Chloride Elixir 20 mEq /15 mL UDC GT SCH (08:45)
[2017-12-04] MEDS: Lactulose 10 Gm/15 mL 30mL UDC GT SCH ×2 (08:45→16:40)
[2017-12-04] MEDS: Multivitamin w/ Minerals Tab GT SCH (08:46)
[2017-12-04] MEDS: Lactobacillus Rhamnosus GG 15 Billion CFU CAP.SPRINK PO SCH (08:46)
[2017-12-04] MEDS: Aspirin 81mg Chewable Tab GT SCH (08:47)
[2017-12-04] MEDS: Pantoprazole 40 mg/Packet GT SCH (08:47)
[2017-12-04] MEDS: Chlorhexidine Gluconate 0.12% 15mL Mouthwash MM SCH ×2 (09:18→20:22)
--- NOTE | 2017-12-04 14:34 | Consultation ---
Consult Note - Consult Note Service Date: 12/04/17 Referring Physician: Odell Dubose Consult Note: PHYSICIAN Consultation Note: Date of Admission: 11/30/17 Purpose of Consultation: Sepsis Chief Complaint: Patient MEAGHAN WORLEY was admitted to location Intensive Care Unit with CHF, SCROTAL SWELLING R/O SEPSIS. History of Present Illness: 86 regular with a past medical history of atrial fibrillation, peripheral artery disease, essential hypertension, carotid disease , GERD, anxiety disorder, history of pneumonia in the past, CVA in the past. History of cellulitis right lower extremity treated for the past. Dependence on ventilator chronically. G-tube for dysphagia, Trach tube, Brought to the ER for On initial evaluation, his temperature was 98.6 today Fahrenheit and WBC count was Past Medical History: Atrial fibrillation, peripheral artery disease, essential hypertension, carotid disease, GERD, anxiety disorder, history of pneumonia in the past, CVA in the past. History of cellulitis right lower extremity treated for the past. Dependence on ventilator chronically. G-tube for dysphagia. Trach tube. On initial evaluation, patient's temperature was 98.6 today Fahrenheit and WBC count was 9500. Sepsis workup was performed. Rocephin was started. ID consult was called as the sputum culture grew MDRO's. Diagnoses UNSPECIFIED DEMENTIA WITHOUT BEHAVIORAL DISTURBANCE (11/30/17) ENCEPHALOPATHY, UNSPECIFIED (11/30/17) ESSENTIAL (PRIMARY) HYPERTENSION (11/30/17) UNSPECIFIED ATRIAL FIBRILLATION (11/30/17) CHRONIC PULMONARY EDEMA (11/30/17) ACUTE AND CHR RESP FAILURE, UNSP W HYPOXIA OR HYPERCAPNIA (11/30/17) UNSPECIFIED OSTEOARTHRITIS, UNSPECIFIED SITE (11/30/17) OTHER SPECIFIED DISORDERS OF PENIS (11/30/17) DYSPHAGIA, UNSPECIFIED (11/30/17) PRSNL HX OF TIA (TIA), AND CEREB INFRC W/O RESID DEFICITS (11/30/17) TRACHEOSTOMY STATUS (11/30/17) GASTROSTOMY STATUS (11/30/17) DEPENDENCE ON RESPIRATOR [VENTILATOR] STATUS (11/30/17) Allergies Allergy/AdvReac Type Severity Reaction Status Date / Time No Known Allergies Allergy Verified 01/12/17 23:34 Vital Signs Temp 98.7 F 12/04/17 08:00 Pulse 107 12/04/17 13:04 Resp 14 12/04/17 11:00 BP 119/85 12/04/17 11:00 Pulse Ox 100 12/04/17 13:04 Intake & Output 12/03/17 12/04/17 12/04/17 18:59 06:59 18:59 Intake Total 710 750 Output Total 1600 1800 Balance -890 -1050 Weight (lbs) 69.4 kg 68.577 kg Intake: Intake, IV Amount 50 cefTRIAXone 1 gm In 50 Sodium Chloride 0.9% 50 ml @ 100 mls/hr IV Q24HR [facility] Rx#:[id number] Tube Feeding 660 550 Other 200 Output: Urine 1600 1800 Other: # Bowel Movements 1 1 Home Medication Medication Instructions Recorded Type Acetaminophen [Tylenol 650 mg GT DAILY PRN #0 [facility] 01/16/17 Rx 650mg/20.3mL Suspension] Acetaminophen [Tylenol 650 mg GT Q4HR PRN #0 [facility] 01/16/17 Rx 650mg/20.3mL Suspension] Bisacodyl [Dulcolax 10 Mg Supp] 10 mg RC DAILY PRN #0 sup 01/16/17 Rx Magnesium Hydroxide [Milk of 30 ml GT HS PRN #0 ud 01/16/17 Rx Magnesia] Amiodarone [Cordarone] 200 mg GT DAILY 10/10/17 History Aspirin [Aspirin Chewable] 81 mg GT DAILY 10/10/17 History Chlorhexidine Gluconate 0.12% 15 ml MM BID 10/10/17 History [Peridex] Docusate Sodium [Colace] 100 mg GT DAILY 10/10/17 History Ferrous Sulfate [Iron] 7.5 ml GT BID 10/10/17 History Heparin Sodium [Heparin*] 5,000 units SUBQ Q12HR 10/10/17 History Lactulose [Cephulac] 30 ml GT BID 10/10/17 History Metoprolol Tartrate 25 mg GT DAILY 10/10/17 History Multivitamin w/ Minerals 1 tab GT DAILY 10/10/17 History [Theragran M] Omeprazole 20 mg GT DAILY 10/10/17 History Sodium Chloride Tab [NaCL Tab] 2 gm GT BID 10/10/17 History Tramadol HCl [Ultram] 50 mg GT Q6H PRN 10/10/17 History amLODIPine Besylate [Norvasc] 5 mg GT DAILY 10/10/17 History Albuterol/Ipratropium Neb [Duoneb 3 ml HHN Q6HR 11/30/17 History Neb] Clotrimazole 1% Cream [Lotrimin 1% 1 appl TP TID 11/30/17 History Cream] Silvadene Cream 1 unit TP DAILY 11/30/17 History Current Medications Generic Name Dose Route Start Last Admin Trade Name Freq PRN Reason Stop Dose Admin Acetaminophen 650 mg 11/30/17 21:01 11/30/17 21:55 Tylenol 650mg/20.3ml Suspension GT 01/29/18 21:00 650 mg DAILY PRN Administration give 30mins prior to ROM excer Acetaminophen 650 mg 11/30/17 21:01 Tylenol 650mg/20.3ml Suspension GT 01/29/18 21:00 Q4HR PRN mild pain or temp >101 Albuterol/Ipratropium 3 ml 12/03/17 23:00 12/04/17 13:04 Duoneb Neb HHN 02/01/18 22:59 3 ml Q4HRT LAURA Administration Amiodarone HCl 200 mg 12/01/17 09:00 12/04/17 08:46 Cordarone GT 01/30/18 08:59 200 mg DAILY LAURA Administration Amlodipine Besylate 5 mg 12/01/17 09:00 12/04/17 09:00 Norvasc GT 01/30/18 08:59 Not Given DAILY LAURA Aspirin 81 mg 12/01/17 09:00 12/04/17 08:47 Aspirin Chewable GT 01/30/18 08:59 81 mg DAILY LAURA Administration Bisacodyl 10 mg 11/30/17 21:01 11/30/17 21:56 Dulcolax 10 Mg Supp RC 01/29/18 21:00 10 mg DAILY PRN Administration Constipation Chlorhexidine Gluconate 15 ml 12/01/17 08:00 12/04/17 09:18 Peridex MM 01/30/18 07:59 15 ml 0800,1999 LAURA Administration Clotrimazole 1 appl 12/01/17 09:00 12/04/17 09:14 Lotrimin 1% Cream TP 01/30/18 08:59 1 appl TID LAURA Administration Diltiazem HCl 5 mg 12/03/17 19:34 12/03/17 19:42 Cardizem IVP 02/01/18 19:44 5 mg Q6H PRN Administration HR > 140 Docusate Sodium 100 mg 12/02/17 09:00 12/04/17 08:47 Colace PO 01/31/18 08:59 100 mg DAILY LAURA Administration Ferrous Sulfate 450 mg 12/01/17 17:00 12/04/17 08:45 Iron GT 01/30/18 16:59 450 mg BID LAURA Administration Furosemide 20 mg 12/01/17 20:11 12/04/17 08:47 Lasix IVP 01/30/18 20:09 20 mg BID LAURA Administration Heparin Sodium (Porcine) 5,000 units 12/01/17 21:00 12/04/17 08:48 Heparin SUBQ 01/30/18 20:59 5,000 units Q12HR LA[facility] Administration Ceftriaxone Sodium 1 gm/ 50 mls @ 100 mls/hr 12/01/17 14:00 12/03/17 18:37 Sodium Chloride IV 01/30/18 13:59 Infused Q24HR [facility] Infusion Lactobacillus Rhamnosus 1 each 12/04/17 09:00 12/04/17 08:46 Culturelle 15b PO 02/02/18 08:59 1 each DAILY LAURA Administration Lactulose 20 gm 12/01/17 17:00 12/04/17 08:45 Cephulac GT 01/30/18 16:59 20 gm BID LAURA Administration Lorazepam 1 mg 12/03/17 20:01 12/03/17 20:27 Ativan IVP 02/01/18 20:00 1 mg Q4H PRN Administration Agitation Protocol Magnesium Hydroxide 30 ml 12/01/17 12:37 12/01/17 23:03 Milk Of Magnesia GT 01/30/18 12:36 30 ml HS PRN Administration Constipation Methylprednisolone Sodium Succinate 40 mg 12/03/17 21:00 12/04/17 04:51 Solu-Medrol IVP 02/01/18 20:59 40 mg Q8HR LAURA Administration Metoprolol Tartrate 25 mg 12/02/17 09:00 12/04/17 09:00 Lopressor GT 01/31/18 08:59 Not Given DAILY LAURA Miscellaneous 1 ea 12/01/17 09:45 Vte Chemical Prophylaxis Screen/ Admission 01/30/18 09:44 PRN PRN PROTOCOL Miscellaneous 1 ea 12/03/17 10:30 Probiotic Screen MC 02/01/18 10:29 PRN PRN PROTOCOL Pantoprazole Sodium 40 mg 12/02/17 09:00 12/04/17 08:47 Protonix GT 01/31/18 08:59 40 mg DAILY LAURA Administration Potassium Chloride 20 meq 12/02/17 09:00 12/04/17 08:45 Potassium Chloride Elixir GT 01/31/18 08:59 20 meq DAILY LAURA Administration Silver Sulfadiazine 1 appl 12/02/17 14:00 12/04/17 09:15 Ssd TP 01/31/18 13:59 1 appl DAILY [facility]URA Administration Simethicone 80 mg 12/02/17 09:44 Mylicon PO 01/31/18 09:43 BID PRN Gas Sodium Chloride 10 ml 11/30/17 22:23 12/04/17 09:17 Saline Flush IV 01/29/18 22:22 10 ml QSHIFT LAURA Administration Sodium Chloride 2 gm 12/01/17 17:00 12/04/17 08:45 Nacl Tab GT 01/30/18 16:59 2 gm BID LAURA Administration Tramadol HCl 50 mg 12/01/17 12:37 12/02/17 20:47 Ultram GT 01/30/18 12:36 50 mg Q6H PRN Administration Pain (Moderate) Review of Systems: A 12 point ROS was reviewed with the pertinent positive and negatives noted in the HPI. Social History Smoking Status Unknown if ever smoked Drug Use No Alcohol Use No Family Medical History Family Medical History Start: 11/30/17 20: 15 Freq: ONCE Status: Active Document 11/30/17 20:15 [email or web address] (Rec: 11/30/17 22:56 [email or web address] [email or web address]) Family Medical History Father History Unknown Yes Ethnicity Unknown Living Status Unknown Mother History Unknown Yes Ethnicity Unknown Living Status Unknown Nephew Ethnicity Unknown Living Status Unknown Physical Exam: General: Well-nourished well-developed. On the ventilator. Status post tracheostomy. Supple, thick site is clear. HEENT: Head: Atraumatic Normocephalic.Oral cavity: Moist, pink tongue. Eyes pallor is present. EOMI. Face symmetrical. Neck: Trach site is clear. Cardio: S1 and S2 within normal limits. Respiratory: Vesicular breath sound no crackles present. Abdominal: Soft, nontender, nondistended, bowel sounds present, G-tube site is clear. Genital/Urinary: Deferred Extremities: No cyanosis no clubbing no edema Neurological: Alert and awake. Unable to communicate. Assessment: 1. Pneumonia. MDROs. 2. Vent dependent respiratory failure. 3. CHF. 4. Scrotal cellulitis. Plan: Change antibiotic to vancomycin and Zosyn. Thank you, Dr. Dubose, for involving me in taking care of this patient. Signed, Omar Liu M.D. [id number] was started.4
[2017-12-04] MEDS ORDERED: Vancomycin HCl 1.5 GM in Sodium Chloride 0.9% 500 ML IV ONE (16:00)
--- NOTE | 2017-12-04 17:30 | Internal Medicine Prog Note ---
Internal Medicine Subjective - Subjective Service Date: 12/04/17 Patient seen and examined:: with staff Patient is:: awake Per staff patient has:: no adverse event Internal Medicine Objective - Results Result Diagrams: 12/02/17 04:00 12/02/17 04:00 Recent Labs: Laboratory Last Values WBC 7.1 Th/cmm (4.8-10.8) 12/02/17 04:00 RBC 3.03 Mil/cmm (3.80-5.80) L 12/02/17 04:00 Hgb 9.7 gm/dL (12-16) L 12/02/17 04:00 Hct 29.2 % (41.0-60) L D 12/02/17 04:00 MCV 96.3 fl (80-99) 12/02/17 04:00 MCH 31.9 pg (27.0-31.0) H 12/02/17 04:00 MCHC Differential 33.1 pg (28.0-36.0) 12/02/17 04:00 RDW 15.8 % (11.5-20.0) 12/02/17 04:00 Plt Count 407 Th/cmm (150-400) H 12/02/17 04:00 MPV 7.8 fl 12/02/17 04:00 Neutrophils % 71.5 % (40.0-80.0) 12/02/17 04:00 Band Neutrophils % 5 % (0-10) 11/30/17 18:00 Lymphocytes % 12.5 % (20.0-50.0) L 12/02/17 04:00 Monocytes % 14.4 % (2.0-10.0) H 12/02/17 04:00 Eosinophils % 1.5 % (0.0-5.0) 12/02/17 04:00 Basophils % 0.1 % (0.0-2.0) 12/02/17 04:00 Neutrophils (Manual) 68 % (40-80) 11/30/17 18:00 Lymphocytes 9 % (20-50) L 11/30/17 18:00 Monocytes 13 % (2-10) H 11/30/17 18:00 Eosinophils 4 % (0-5) 11/30/17 18:00 Hypochromia 1+ 11/30/17 18:00 Macrocytosis 1+ 11/30/17 18:00 Sodium 135 mEq/L (136-145) L 12/02/17 04:00 Potassium 3.6 mEq/L (3.5-5.1) 12/02/17 04:00 Chloride 99 mEq/L (98-107) 12/02/17 04:00 Carbon Dioxide 28.8 mEq/L (21.0-31.0) 12/02/17 04:00 Anion Gap 10.8 (7.0-16.0) 12/02/17 04:00 BUN 20 mg/dL (7-25) 12/02/17 04:00 Creatinine 0.7 mg/dL (0.7-1.3) 12/02/17 04:00 Est GFR ( Amer) TNP 12/02/17 04:00 Est GFR (Non-Af Amer) TNP 12/02/17 04:00 BUN/Creatinine Ratio 28.6 12/02/17 04:00 Glucose 97 mg/dL (70-105) 12/02/17 04:00 Calcium 8.7 mg/dL (8.6-10.3) 12/02/17 04:00 Total Bilirubin 0.4 mg/dL (0.3-1.0) 12/02/17 04:00 AST 22 U/L (13-39) 12/02/17 04:00 ALT 20 U/L (7-52) 12/02/17 04:00 Alkaline Phosphatase 180 U/L (34-104) H 12/02/17 04:00 B-Natriuretic Peptide 421.0 pg/mL (5.0-100.0) H 11/30/17 18:00 Total Protein 6.4 gm/dL (6.0-8.3) 12/02/17 04:00 Albumin 2.9 gm/dL (4.2-5.5) L 12/02/17 04:00 Globulin 3.5 gm/dL 12/02/17 04:00 Albumin/Globulin Ratio 0.8 (1.0-1.8) L 12/02/17 04:00 Urine Source [place] 12/01/17 03:00 Urine Color YELLOW 12/01/17 03:00 Urine Clarity CLEAR (CLEAR) 12/01/17 03:00 Urine pH 7.0 (4.6 - 8.0) 12/01/17 03:00 Ur Specific [place] 1.015 (1.005-1.030) 12/01/17 03:00 Urine Protein NEGATIVE mg/dL (NEGATIVE) 12/01/17 03:00 Urine Glucose (UA) NEGATIVE mg/dL (NEGATIVE) 12/01/17 03:00 Urine Ketones NEGATIVE mg/dL (NEGATIVE) 12/01/17 03:00 Urine Blood TRACE (NEGATIVE) 12/01/17 03:00 Urine Nitrate NEGATIVE (NEGATIVE) 12/01/17 03:00 Urine Bilirubin NEGATIVE (NEGATIVE) 12/01/17 03:00 Urine Urobilinogen 0.2 E.U./dL (0.2 - 1.0) 12/01/17 03:00 Ur Leukocyte Esterase TRACE (NEGATIVE) H 12/01/17 03:00 Urine RBC 2-5 /hpf (0-5) H 12/01/17 03:00 Urine WBC 0-2 /hpf (0-5) 12/01/17 03:00 Ur Epithelial Cells OCCASIONAL /lpf (FEW) 12/01/17 03:00 Urine Bacteria OCCASIONAL /hpf (NONE SEEN) 12/01/17 03:00 Urine Yeast FEW /hpf (NONE SEEN) H 12/01/17 03:00 - Physical Exam Vitals and I&O: Vital Signs Temp 99 F 12/04/17 12:00 Pulse 111 12/04/17 16:39 Resp 20 12/04/17 16:00 BP 125/79 12/04/17 16:40 Pulse Ox 100 12/04/17 16:39 Intake & Output 12/03/17 12/04/17 12/04/17 18:59 06:59 18:59 Intake Total 710 750 Output Total 1600 1800 Balance -890 -1050 Weight (lbs) 153 lb 151 lb 3 oz Intake: Intake, IV Amount 50 [id number] 1 gm In 50 Sodium Chloride 0.9% 50 ml @ 100 mls/hr IV Q24HR [facility] Rx#:[id number] Tube Feeding 660 550 Other 200 Output: Urine 1600 1800 Other: # Bowel Movements 1 1 Active Medications: Current Medications Acetaminophen (Tylenol 650mg/20.3ml Suspension) 650 mg GT DAILY PRN PRN Reason: give 30mins prior to ROM excer Stop: 01/29/18 21:00 Last Admin: 11/30/17 21:55 Dose: 650 mg Acetaminophen (Tylenol 650mg/20.3ml Suspension) 650 mg GT Q4HR PRN PRN Reason: mild pain or temp >101 Stop: 01/29/18 21:00 Albuterol/Ipratropium (Duoneb Neb) 3 ml HHN Q4HRT [facility] Stop: 02/01/18 22:59 Last Admin: 12/04/17 16:38 Dose: 3 ml Amiodarone HCl (Cordarone) 200 mg GT DAILY [facility] Stop: 01/30/18 08:59 Last Admin: 12/04/17 08:46 Dose: 200 mg Amlodipine Besylate (Norvasc) 5 mg GT DAILY [facility] Stop: 01/30/18 08:59 Last Admin: 12/04/17 09:00 Dose: Not Given Aspirin (Aspirin Chewable) 81 mg GT DAILY [facility] Stop: 01/30/18 08:59 Last Admin: 12/04/17 08:47 Dose: 81 mg Bisacodyl (Dulcolax 10 Mg Supp) 10 mg RC DAILY PRN PRN Reason: Constipation Stop: 01/29/18 21:00 Last Admin: 11/30/17 21:56 Dose: 10 mg Chlorhexidine Gluconate (Peridex) 15 ml MM 0800,1999 [facility] Stop: 01/30/18 07:59 Last Admin: 12/04/17 09:18 Dose: 15 ml Clotrimazole (Lotrimin 1% Cream) 1 appl TP TID [facility] Stop: 01/30/18 08:59 Last Admin: 12/04/17 17:22 Dose: 1 appl Diltiazem HCl (Cardizem) 5 mg IVP Q6H PRN PRN Reason: HR > 140 Stop: 02/01/18 19:44 Last Admin: 12/03/17 19:42 Dose: 5 mg Docusate Sodium (Colace) 100 mg PO DAILY [facility] Stop: 01/31/18 08:59 Last Admin: 12/04/17 08:47 Dose: 100 mg Ferrous Sulfate (Iron) 450 mg GT BID [facility] Stop: 01/30/18 16:59 Last Admin: 12/04/17 16:40 Dose: 450 mg Furosemide (Lasix) 20 mg IVP BID [facility] Stop: 01/30/18 20:09 Last Admin: 12/04/17 16:40 Dose: 20 mg Heparin Sodium (Porcine) (Heparin) 5,000 units SUBQ Q12HR [facility] Stop: 01/30/18 20:59 Last Admin: 12/04/17 08:48 Dose: 5,000 units Piperacillin Sod/Tazobactam (Sod 3.375 gm/ Sodium Chloride) 50 mls @ 100 mls/ hr IV Q6HR [facility] Stop: 02/02/18 17:59 Vancomycin HCl 1.5 gm/ Sodium (Chloride) 500 mls @ 250 mls/hr IV ONCE ONE Stop: 12/04/17 17:59 Vancomycin HCl 0.75 gm/ Sodium (Chloride) 250 mls @ 165 mls/hr IV Q12H [facility] Stop: 02/03/18 07:59 Lactobacillus Rhamnosus (Culturelle 15b) 1 each PO DAILY [facility] Stop: 02/02/18 08:59 Last Admin: 12/04/17 08:46 Dose: 1 each Lactulose (Cephulac) 20 gm GT BID [facility] Stop: 01/30/18 16:59 Last Admin: 12/04/17 16:40 Dose: 20 gm Lorazepam (Ativan) 1 mg IVP Q4H PRN; Protocol PRN Reason: Agitation Stop: 02/01/18 20:00 Last Admin: 12/03/17 20:27 Dose: 1 mg Magnesium Hydroxide (Milk Of Magnesia) 30 ml GT HS PRN PRN Reason: Constipation Stop: 01/30/18 12:36 Last Admin: 12/01/17 23:03 Dose: 30 ml Methylprednisolone Sodium Succinate (Solu-Medrol) 40 mg IVP Q8HR [facility] Stop: 02/01/18 20:59 Last Admin: 12/04/17 16:41 Dose: 40 mg Metoprolol Tartrate (Lopressor) 25 mg GT DAILY [facility] Stop: 01/31/18 08:59 Last Admin: 12/04/17 09:00 Dose: Not Given Miscellaneous (Vte Chemical Prophylaxis Screen/ Admission) 1 ea [facility] PRN PRN PRN Reason: PROTOCOL Stop: 01/30/18 09:44 Miscellaneous (Probiotic Screen) 1 ea [facility] PRN PRN PRN Reason: PROTOCOL Stop: 02/01/18 10:29 Miscellaneous (Vancomycin Iv Per Pharmacy) 1 ea MC PRN [facility] Stop: 02/02/18 14:59 Pantoprazole Sodium (Protonix) 40 mg GT DAILY [facility] Stop: 01/31/18 08:59 Last Admin: 12/04/17 08:47 Dose: 40 mg Potassium Chloride (Potassium Chloride Elixir) 20 meq GT DAILY [facility] Stop: 01/31/18 08:59 Last Admin: 12/04/17 08:45 Dose: 20 meq Silver Sulfadiazine (Ssd) 1 appl TP DAILY [facility] Stop: 01/31/18 13:59 Last Admin: 12/04/17 09:15 Dose: 1 appl Simethicone (Mylicon) 80 mg PO BID PRN PRN Reason: Gas Stop: 01/31/18 09:43 Sodium Chloride (Saline Flush) 10 ml IV QSHIFT [facility] Stop: 01/29/18 22:22 Last Admin: 12/04/17 09:17 Dose: 10 ml Sodium Chloride (Nacl Tab) 2 gm GT BID [facility] Stop: 01/30/18 16:59 Last Admin: 12/04/17 16:39 Dose: 2 gm Tramadol HCl (Ultram) 50 mg GT Q6H PRN PRN Reason: Pain (Moderate) Stop: 01/30/18 12:36 Last Admin: 12/02/17 20:47 Dose: 50 mg General: weak, alert HEENT: NC/AT, PERRLA Neck: Supple Lungs: CTAB Abdomen: non-tender, non-distended, positive bowel sound - Procedures Procedures: Procedures Procedure Code Date AIRWAYS SURGICAL PROCEDURE 35653 10/09/17 CHANGE FEEDING DEVICE IN UP INTEST TRACT, TUBE MOUNTER APPROACH [id number] 08/18/16 CHANGE GASTROSTOMY TUBE 38812 08/18/16 CHANGE TRACHEOSTOMY DEVICE IN TRACHEA, EXTERNAL APPROACH [id number] 10/09/[address] GASTROSTOMY TUBE 47778 10/22/16 EXCISION OF [place], ENDO, DIAGN [id number] 10/09/17 INSERTION OF FEEDING DEVICE INTO STOMACH, PERC APPROACH [id number] 10/22/16 RESPIRATORY VENTILATION, 24-96 CONSECUTIVE HOURS [id number] 11/30/17 RESPIRATORY VENTILATION, GREATER THAN 96 CONSECUTIVE HOURS [id number] 10/22/16 VENT MGMT INPAT INIT DAY 43784 01/13/17 VENT MGMT INPAT SUBQ DAY 53534 01/13/17 Internal Medicine Assmt/Plan - Assessment Assessment: Current Active Problems Problem Status Onset SCROTAL SWELLING Acute chronic respiratory failure vdrf dysphagia - Plan Plan: vent support empiric ivabx urology consult scrotal u/s follow up labs in am continue current orders Nutritional Asmnt/Malnutr-PDOC - Dietary Evaluation Malnutrition Findings (Please click <Entered> for more info): Nutritional Asmnt/Malnutrition Start: 12/01/17 16: 12 Text: Status: Active Freq: Document 12/01/17 16:12 DAVID (Rec: 12/01/17 16:34 LCHENG [id number]) Nutritional Asmnt/Malnutrition Patient General Information Nutritional Screening High Risk Consult Diagnosis CHF, r/o sepsis Pertinent Medical Hx/Surgical Hx dysphagia, PEG, a fib, OA, HTN , anemia, anxiety, tracheostomy Subjective Information Consult received for billie < 12. Pt seen on vent at time of visit. TF was off at this time. Per nurse notes, pt tolerated well. Current Diet Order/ Nutrition Support Isosource 1.5, 55ml/hr x 20hr Pertinent Labs 12/01 Na 129, K 3.9, Cl 96, BUN 19, Cr 0.7, Glucose 114, Ca 8. 3, Alb 2.8 Nutritional Hx/Data Height 5 ft 8 in Height (Calculated Centimeters) 172.7 Current Weight (lbs) 144 lb 11.2 oz Weight (Calculated Kilograms) 65.6 Weight (Calculated Grams) 74032.8 [place] Body Weight 154 % [place] Body Weight 94 Body Mass Index (BMI) 21.9 Weight Status Approriate GI Symptoms GI Symptoms None Last BM no record Difficult in: None Skin Integrity/Comment: reddened to left adb, pressure area to left lateral foot, bruise to left arm Billie 13 Estimated Nutritional Goals BEE in Kcals: Using Current wt Calories/Kcals/Kg 25-30 Kcals Calculated 8591-3932 Protein: Using Current wt Protein g/k-1.2 Protein Calculated 67-80 Fluid: ml 1675-2010ml (1ml/kcal) Nutritional Problem No current Nutrition Prob Problem N/A Intervention/Recommendation Comments 1. Continue with current TF regimen. It provides 1650kcal, 74g protein, meeting 100% of nutritional needs. 2. Monitor TF rate, tolerance, wt weekly, skin integrity and labs 3. F/U as moderate risk in 3-5 days, 12/04-12/06 Expected Outcomes/Goals Expected Outcomes/Goals 1. Pt to meet at least 75% of nutritional needs via nutrition support with tolerance 2. Wt stability, skin to remain intact, labs to approach WNL.
[2017-12-04] MEDS: Diltiazem 5 mg/mL 5mL Vial IVP PRN (17:31)
--- NOTE | 2017-12-04 21:25 | Progress Notes ---
DATE: SUBJECTIVE: The patient remains in the ICU. No significant change or sputum cultures have shown multiple drug resistant organisms and carbapenem resistant as well for which ID has been consulted. Zamudio catheter is draining clear urine and scrotum, no change. PHYSICAL EXAMINATION: VITAL SIGNS: Heart rate 117, blood pressure 119/85, temperature 98.7. ABDOMEN: Soft, nondistended and nontender. EXTREMITIES: No edema. HEART: Sounds irregular rhythm. Zamudio catheter, no blood. LABS: No CBC was done today and no chemistries either. IMPRESSION: 1. Scrotal swelling, improving with some edema left over. 2. Ventilator dependency with drug resistant organisms. 3. Gastric tube status tolerating feeding. 4. Atrial fibrillation, rate controlled. 5. Congestive heart failure, stable. 6. Pneumonia, remains under treatment. JOB# [id number]
[2017-12-05] MEDS: Albuterol/Ipratropium Neb 3 ML AERS HHN SCH ×6 (03:08→22:50)
[2017-12-05] MEDS: methylPREDNISolone SS 40 mg Vial IVP SCH ×2 (04:33→12:15)
[2017-12-05 05:54] LABS: HEMATOCRIT 29.3 % (41.0-60); HEMOGLOBIN 9.7 gm/dL (12-16); LYMPHOCYTE ABSOLUTE 0.4 Th/cmm (1.5-3.0); MEAN CELL VOLUME 97.2 fl (80-99); MEAN CORPUSCULAR HEMOGLOBIN 32.1 pg (27.0-31.0); MEAN PLATELET VOLUME 8.4 fl; MONOCYTE ABSOLUTE 0.5 Th/cmm (0.3-1.0); NEUTROPHILE ABSOLUTE 22.7 Th/cmm (1.8-8.0); PLATELET COUNT 444 Th/cmm (150-400); RED BLOOD COUNT 3.01 Mil/cmm (3.80-5.80); RED CELL DISTRIBUTION WIDTH 16.1 % (11.5-20.0)
[2017-12-05 06:17] LABS: ALB/GLOB RATIO 0.8 (1.0-1.8); ALKALINE PHOSPHATASE 136 U/L (34-104); ANION GAP 12.3 (7.0-16.0); BILIRUBIN,TOTAL 0.4 mg/dL (0.3-1.0); BUN - UREA NITROGEN 53 mg/dL (7-25); CALCIUM SERUM 9.2 mg/dL (8.6-10.3); CARBON DIOXIDE 25.8 mEq/L (21.0-31.0); CHLORIDE 113 mEq/L (98-107); GLUCOSE 146 mg/dL (70-105); POTASSIUM SERUM 4.1 mEq/L (3.5-5.1); SGOT 25 U/L (13-39); SGPT/ALT 26 U/L (7-52); SODIUM SERUM 147 mEq/L (136-145)
[2017-12-05 06:22] LABS: WHITE BLOOD COUNT 23.6 Th/cmm (4.8-10.8)
[2017-12-05 07:14] LABS: BAND NEUTROPHILE 6 % (0-10); LYMPHOCYTE 3 % (20-50); MONOCYTE 1 % (2-10); NEUTROPHILS 90 % (40-80); TOTAL CELLS COUNTED 100
[2017-12-05] MEDS: Multivitamin w/ Minerals Tab GT SCH (08:31)
[2017-12-05] MEDS: Lactobacillus Rhamnosus GG 15 Billion CFU CAP.SPRINK PO SCH (08:31)
[2017-12-05] MEDS: Pantoprazole 40 mg/Packet GT SCH (08:31)
[2017-12-05] MEDS: Potassium Chloride Elixir 20 mEq /15 mL UDC GT SCH (08:32)
[2017-12-05] MEDS: Lactulose 10 Gm/15 mL 30mL UDC GT SCH ×2 (08:32→16:32)
[2017-12-05] MEDS: Aspirin 81mg Chewable Tab GT SCH (08:32)
[2017-12-05] MEDS: Ferrous Sulfate 300 MG/5 ML UDC GT SCH ×2 (08:32→16:31)
[2017-12-05] MEDS: Chlorhexidine Gluconate 0.12% 15mL Mouthwash MM SCH ×2 (08:37→20:46)
--- NOTE | 2017-12-05 21:38 | Progress Notes ---
DATE: 12/05/2017 SUBJECTIVE: The patient was seen in the ICU, lying in the bed. The patient is a poor historian due to medical condition, otherwise the patient appears to be in no acute distress. OBJECTIVE: VITAL SIGNS: Temperature of 100.2, heart rate of 102, blood pressure of 168/96, respirations of 20, 100% on FiO2, 40% via ventilator. HEENT: Head is atraumatic, normocephalic. Eyes, bilateral conjunctivae are sluggish. NECK: Supple. No JVD. PULMONARY: The patient does have tracheostomy connected to ventilator. GASTROINTESTINAL: Soft and nontender without guarding. Positive bowel sounds. The patient has gastrostomy tube in place. MUSCULOSKELETAL: No clubbing. No cyanosis noted. ASSESSMENT: 1. Chronic respiratory failure, ventilator dependent. 2. Dysphagia. 3. Atrial fibrillation. 4. Anxiety. 5. Hypertension. 6. Osteoarthritis. PLAN: We will keep the patient inpatient to Intensive Care Unit. Treatment plans were discussed with the patient's nurse. We will put the patient on aspiration precaution. Treatment plans were discussed with Dr. Dubose. JOB# [id number]
--- NOTE | 2017-12-05 23:40 | Infectious Disease Prog Note ---
Infectious Disease Subjective - Review of Systems Service Date: 12/05/17 Subjective: Patient was tachycardic so his discharge put on hold. Infectious Disease Objective - Results Result Diagrams: 12/05/17 04:45 12/05/17 04:45 Recent Labs: Laboratory Last Values WBC 23.6 Th/cmm (4.8-10.8) H* D 12/05/17 04:45 RBC 3.01 Mil/cmm (3.80-5.80) L 12/05/17 04:45 Hgb 9.7 gm/dL (12-16) L 12/05/17 04:45 Hct 29.3 % (41.0-60) L 12/05/17 04:45 MCV 97.2 fl (80-99) 12/05/17 04:45 MCH 32.1 pg (27.0-31.0) H 12/05/17 04:45 MCHC Differential 33.0 pg (28.0-36.0) 12/05/17 04:45 RDW 16.1 % (11.5-20.0) 12/05/17 04:45 Plt Count 444 Th/cmm (150-400) H 12/05/17 04:45 MPV 8.4 fl 12/05/17 04:45 Neutrophils % 71.5 % (40.0-80.0) 12/02/17 04:00 Band Neutrophils % 6 % (0-10) 12/05/17 04:45 Lymphocytes % 12.5 % (20.0-50.0) L 12/02/17 04:00 Monocytes % 14.4 % (2.0-10.0) H 12/02/17 04:00 Eosinophils % 1.5 % (0.0-5.0) 12/02/17 04:00 Basophils % 0.1 % (0.0-2.0) 12/02/17 04:00 Neutrophils (Manual) 90 % (40-80) H 12/05/17 04:45 Lymphocytes 3 % (20-50) L 12/05/17 04:45 Monocytes 1 % (2-10) L 12/05/17 04:45 Eosinophils 4 % (0-5) 11/30/17 18:00 Hypochromia 1+ 11/30/17 18:00 Macrocytosis 1+ 11/30/17 18:00 Sodium 147 mEq/L (136-145) H 12/05/17 04:45 Potassium 4.1 mEq/L (3.5-5.1) 12/05/17 04:45 Chloride 113 mEq/L (98-107) H 12/05/17 04:45 Carbon Dioxide 25.8 mEq/L (21.0-31.0) 12/05/17 04:45 Anion Gap 12.3 (7.0-16.0) 12/05/17 04:45 BUN 53 mg/dL (7-25) H 12/05/17 04:45 Creatinine 1.0 mg/dL (0.7-1.3) 12/05/17 04:45 Est GFR ( Amer) TNP 12/05/17 04:45 Est GFR (Non-Af Amer) TNP 12/05/17 04:45 BUN/Creatinine Ratio 53.0 12/05/17 04:45 Glucose 146 mg/dL (70-105) H 12/05/17 04:45 Calcium 9.2 mg/dL (8.6-10.3) 12/05/17 04:45 Total Bilirubin 0.4 mg/dL (0.3-1.0) 12/05/17 04:45 AST 25 U/L (13-39) 12/05/17 04:45 ALT 26 U/L (7-52) 12/05/17 04:45 Alkaline Phosphatase 136 U/L (34-104) H 12/05/17 04:45 B-Natriuretic Peptide 421.0 pg/mL (5.0-100.0) H 11/30/17 18:00 Total Protein 7.0 gm/dL (6.0-8.3) 12/05/17 04:45 Albumin 3.0 gm/dL (4.2-5.5) L 12/05/17 04:45 Globulin 4.0 gm/dL 12/05/17 04:45 Albumin/Globulin Ratio 0.8 (1.0-1.8) L 12/05/17 04:45 Urine Source [place] 12/01/17 03:00 Urine Color YELLOW 12/01/17 03:00 Urine Clarity CLEAR (CLEAR) 12/01/17 03:00 Urine pH 7.0 (4.6 - 8.0) 12/01/17 03:00 Ur Specific [place] 1.015 (1.005-1.030) 12/01/17 03:00 Urine Protein NEGATIVE mg/dL (NEGATIVE) 12/01/17 03:00 Urine Glucose (UA) NEGATIVE mg/dL (NEGATIVE) 12/01/17 03:00 Urine Ketones NEGATIVE mg/dL (NEGATIVE) 12/01/17 03:00 Urine Blood TRACE (NEGATIVE) 12/01/17 03:00 Urine Nitrate NEGATIVE (NEGATIVE) 12/01/17 03:00 Urine Bilirubin NEGATIVE (NEGATIVE) 12/01/17 03:00 Urine Urobilinogen 0.2 E.U./dL (0.2 - 1.0) 12/01/17 03:00 Ur Leukocyte Esterase TRACE (NEGATIVE) H 12/01/17 03:00 Urine RBC 2-5 /hpf (0-5) H 12/01/17 03:00 Urine WBC 0-2 /hpf (0-5) 12/01/17 03:00 Ur Epithelial Cells OCCASIONAL /lpf (FEW) 12/01/17 03:00 Urine Bacteria OCCASIONAL /hpf (NONE SEEN) 12/01/17 03:00 Urine Yeast FEW /hpf (NONE SEEN) H 12/01/17 03:00 - Physical Exam Vitals and I&O: Vital Signs Temp 100 F 12/05/17 20:00 Pulse 106 12/05/17 22:53 Resp 20 12/05/17 22:00 BP 113/74 12/05/17 22:00 Pulse Ox 100 12/05/17 22:53 Intake & Output 12/05/17 12/05/17 12/06/17 06:59 18:59 06:59 Intake Total 1350 820 55 Output Total 550 1200 300 Balance 800 -380 -245 Weight (lbs) 67.132 kg 67.132 kg 67.132 kg Intake: Intake, IV Amount 650 100 Piperacillin Sodium/ 150 100 Tazobact 3.375 gm In Sodium Chloride 0.9% 50 ml @ 100 mls/hr IV Q6HR [facility] Rx#:[id number] Vancomycin HCl 1.5 gm In 500 Sodium Chloride 0.9% 500 ml @ 250 mls/hr IV ONCE ONE Rx#:[id number] Tube Feeding 550 550 55 Other 150 170 Output: Urine 550 1200 Other 300 Other: # Bowel Movements 0 0 Active Medications: Current Medications Acetaminophen (Tylenol 650mg/20.3ml Suspension) 650 mg GT DAILY PRN PRN Reason: give 30mins prior to ROM excer Stop: 01/29/18 21:00 Last Admin: 12/05/17 16:32 Dose: 650 mg Acetaminophen (Tylenol 650mg/20.3ml Suspension) 650 mg GT Q4HR PRN PRN Reason: mild pain or temp >101 Stop: 01/29/18 21:00 Last Admin: 12/04/17 19:44 Dose: 650 mg Albuterol/Ipratropium (Duoneb Neb) 3 ml HHN Q4HRT [facility] Stop: 02/01/18 22:59 Last Admin: 12/05/17 22:50 Dose: 3 ml Amiodarone HCl (Cordarone) 200 mg GT DAILY [facility] Stop: 01/30/18 08:59 Last Admin: 12/05/17 08:35 Dose: 200 mg Amlodipine Besylate (Norvasc) 5 mg GT DAILY [facility] Stop: 01/30/18 08:59 Last Admin: 12/05/17 08:35 Dose: 5 mg Aspirin (Aspirin Chewable) 81 mg GT DAILY [facility] Stop: 01/30/18 08:59 Last Admin: 12/05/17 08:32 Dose: 81 mg Bisacodyl (Dulcolax 10 Mg Supp) 10 mg RC DAILY PRN PRN Reason: Constipation Stop: 01/29/18 21:00 Last Admin: 11/30/17 21:56 Dose: 10 mg Chlorhexidine Gluconate (Peridex) 15 ml MM 0800,1999 [facility] Stop: 01/30/18 07:59 Last Admin: 12/05/17 20:46 Dose: 15 ml Clotrimazole (Lotrimin 1% Cream) 1 appl TP TID [facility] Stop: 01/30/18 08:59 Last Admin: 12/05/17 16:34 Dose: 1 appl Diltiazem HCl (Cardizem) 5 mg IVP Q6H PRN PRN Reason: HR > 140 Stop: 02/01/18 19:44 Last Admin: 12/04/17 17:31 Dose: 5 mg Docusate Sodium (Colace) 100 mg PO DAILY [facility] Stop: 01/31/18 08:59 Last Admin: 12/05/17 08:31 Dose: 100 mg Ferrous Sulfate (Iron) 450 mg GT BID [facility] Stop: 01/30/18 16:59 Last Admin: 12/05/17 16:31 Dose: 450 mg Furosemide (Lasix) 20 mg IVP BID [facility] Stop: 01/30/18 20:09 Last Admin: 12/05/17 16:31 Dose: 20 mg Heparin Sodium (Porcine) (Heparin) 5,000 units SUBQ Q12HR [facility] Stop: 01/30/18 20:59 Last Admin: 12/05/17 20:45 Dose: 5,000 units Piperacillin Sod/Tazobactam (Sod 3.375 gm/ Sodium Chloride) 50 mls @ 100 mls/ hr IV Q6HR [facility] Stop: 02/02/18 17:59 Last Infusion: 12/05/17 17:31 Dose: Infused Vancomycin HCl 0.75 gm/ Sodium (Chloride) 250 mls @ 165 mls/hr IV Q12H [facility] Stop: 02/03/18 07:59 Last Admin: 12/05/17 08:37 Dose: 167 mls/hr Lactobacillus Rhamnosus (Culturelle 15b) 1 each PO DAILY [facility] Stop: 02/02/18 08:59 Last Admin: 12/05/17 08:31 Dose: 1 each Lactulose (Cephulac) 20 gm GT BID [facility] Stop: 01/30/18 16:59 Last Admin: 12/05/17 16:32 Dose: 20 gm Lorazepam (Ativan) 1 mg IVP Q4H PRN; Protocol PRN Reason: Agitation Stop: 02/01/18 20:00 Last Admin: 12/05/17 18:22 Dose: 1 mg Magnesium Hydroxide (Milk Of Magnesia) 30 ml GT HS PRN PRN Reason: Constipation Stop: 01/30/18 12:36 Last Admin: 12/01/17 23:03 Dose: 30 ml Methylprednisolone Sodium Succinate (Solu-Medrol) 20 mg IVP Q12HR [facility] Stop: 02/03/18 20:59 Metoprolol Tartrate (Lopressor) 25 mg GT DAILY [facility] Stop: 01/31/18 08:59 Last Admin: 12/05/17 08:36 Dose: 25 mg Miscellaneous (Vte Chemical Prophylaxis Screen/ Admission) 1 ea [facility] PRN PRN PRN Reason: PROTOCOL Stop: 01/30/18 09:44 Miscellaneous (Probiotic Screen) 1 ea PRN PRN PRN Reason: PROTOCOL Stop: 02/01/18 10:29 Miscellaneous (Vancomycin Iv Per Pharmacy) 1 ea PRN [facility] Stop: 02/02/18 14:59 Pantoprazole Sodium (Protonix) 40 mg GT DAILY [facility] Stop: 01/31/18 08:59 Last Admin: 12/05/17 08:31 Dose: 40 mg Potassium Chloride (Potassium Chloride Elixir) 20 meq GT DAILY [facility] Stop: 01/31/18 08:59 Last Admin: 12/05/17 08:32 Dose: 20 meq Silver Sulfadiazine (Ssd) 1 appl TP DAILY [facility] Stop: 01/31/18 13:59 Last Admin: 12/05/17 08:37 Dose: 1 appl Simethicone (Mylicon) 80 mg PO BID PRN PRN Reason: Gas Stop: 01/31/18 09:43 Sodium Chloride (Saline Flush) 10 ml IV QSHIFT [facility] Stop: 01/29/18 22:22 Last Admin: 12/05/17 08:00 Dose: 10 ml Tramadol HCl (Ultram) 50 mg GT Q6H PRN PRN Reason: Pain (Moderate) Stop: 01/30/18 12:36 Last Admin: 12/02/17 20:47 Dose: 50 mg General: no acute distress, well developed HEENT: atraumatic, no normocephalic, no PERRLA Neck: no supple, no thyromegaly Cardiovascular: S1S2, regular Lungs: clear to auscultation bilaterally, rhonchi Abdomen: soft, no tender, no distended Extremities: no clubbing, no edema, no lines Neurological: awake, alert - Procedures Procedures: Procedures Procedure Code Date AIRWAYS SURGICAL PROCEDURE 84843 10/09/17 CHANGE FEEDING DEVICE IN UP INTEST TRACT, [employer] MAKER APPROACH [id number] 08/18/16 CHANGE GASTROSTOMY TUBE 53472 08/18/16 CHANGE TRACHEOSTOMY DEVICE IN TRACHEA, EXTERNAL APPROACH [id number] 10/09/[address] GASTROSTOMY TUBE 00011 10/22/16 EXCISION OF TRACHEA, ENDO, DIAGN [id number] 10/09/17 INSERTION OF FEEDING DEVICE INTO STOMACH, PERC APPROACH [id number] 10/22/16 RESPIRATORY VENTILATION, 24-96 CONSECUTIVE HOURS [id number] 11/30/17 RESPIRATORY VENTILATION, GREATER THAN 96 CONSECUTIVE HOURS [id number] 10/22/16 VENT MGMT INPAT INIT DAY 01/13/17 VENT MGMT INPAT SUBQ DAY 01/13/17 Infectious Disease Assmt/Plan - Problem List Patient Problems: All Active Problems SCROTAL SWELLING (Acute) - Assessment Assessment: 1. Pneumonia. MDROs. 2. Vent dependent respiratory failure. 3. CHF. 4. Scrotal cellulitis. - Plan Plan: Continue vanco IV and Zosyn. Nutritional Asmnt/Malnutr-PDOC - Dietary Evaluation Malnutrition Findings (Please click <Entered> for more info): Nutritional Asmnt/Malnutrition Start: 12/01/17 16: 12 Text: Status: Active Freq: Document 12/01/17 16:12 MEENAKSHI (Rec: 12/01/17 16:34 [email or web address]) Nutritional Asmnt/Malnutrition Patient General Information Nutritional Screening High Risk Consult Diagnosis CHF, r/o sepsis Pertinent Medical Hx/Surgical Hx dysphagia, PEG, a fib, OA, HTN , anemia, anxiety, tracheostomy Subjective Information Consult received for billie < 12. Pt seen on vent at time of visit. TF was off at this time. Per nurse notes, pt tolerated well. Current Diet Order/ Nutrition Support Isosource 1.5, 55ml/hr x 20hr Pertinent Labs 2/6 Na 129, K 3.9, Cl 96, BUN 19, Cr 0.7, Glucose 114, Ca 8. 3, Alb 2.8 Nutritional Hx/Data Height 1.73 m Height (Calculated Centimeters) 172.7 Current Weight (lbs) 65.635 kg Weight (Calculated Kilograms) 65.6 Weight (Calculated Grams) 41104.8 [place] Body Weight 154 % [place] Body Weight 94 Body Mass Index (BMI) 21.9 Weight Status Approriate GI Symptoms GI Symptoms None Last BM no record Difficult in: None Skin Integrity/Comment: reddened to left adb, pressure area to left lateral foot, bruise to left arm Billie 13 Estimated Nutritional Goals BEE in Kcals: Using Current wt Calories/Kcals/Kg 25-30 Kcals Calculated 1260-6247 Protein: Using Current wt Protein g/k-1.2 Protein Calculated 67-80 Fluid: ml 1675-2010ml (1ml/kcal) Nutritional Problem No current Nutrition Prob Problem N/A Intervention/Recommendation Comments 1. Continue with current TF regimen. It provides 1650kcal, 74g protein, meeting 100% of nutritional needs. 2. Monitor TF rate, tolerance, wt weekly, skin integrity and labs 3. F/U as moderate risk in 3-5 days, 12/04-12/06 Expected Outcomes/Goals Expected Outcomes/Goals 1. Pt to meet at least 75% of nutritional needs via nutrition support with tolerance 2. Wt stability, skin to remain intact, labs to approach WNL.
[2017-12-06] MEDS: methylPREDNISolone SS 40 mg Vial IVP SCH ×3 (00:34→20:41)
[2017-12-06] MEDS: Albuterol/Ipratropium Neb 3 ML AERS HHN SCH ×6 (02:41→22:53)
[2017-12-06] MEDS: Potassium Chloride Elixir 20 mEq /15 mL UDC GT SCH (08:14)
[2017-12-06] MEDS: Lactobacillus Rhamnosus GG 15 Billion CFU CAP.SPRINK PO SCH (08:14)
[2017-12-06] MEDS: Lactulose 10 Gm/15 mL 30mL UDC GT SCH ×2 (08:14→17:21)
[2017-12-06] MEDS: Ferrous Sulfate 300 MG/5 ML UDC GT SCH ×2 (08:14→17:19)
[2017-12-06] MEDS: Pantoprazole 40 mg/Packet GT SCH (08:15)
[2017-12-06] MEDS: Aspirin 81mg Chewable Tab GT SCH (08:16)
[2017-12-06] MEDS: Multivitamin w/ Minerals Tab GT SCH (08:17)
[2017-12-06] MEDS: Chlorhexidine Gluconate 0.12% 15mL Mouthwash MM SCH ×2 (08:29→20:22)
--- NOTE | 2017-12-06 10:29 | General Progress Note ---
Subjective - Review of Systems Events since last encounter: awake in no acute distress tachycardiac Objective - Results Result Diagrams: 12/05/17 04:45 12/05/17 04:45 Recent Labs: Laboratory Last Values WBC 23.6 Th/cmm (4.8-10.8) H* D 12/05/17 04:45 RBC 3.01 Mil/cmm (3.80-5.80) L 12/05/17 04:45 Hgb 9.7 gm/dL (12-16) L 12/05/17 04:45 Hct 29.3 % (41.0-60) L 12/05/17 04:45 MCV 97.2 fl (80-99) 12/05/17 04:45 MCH 32.1 pg (27.0-31.0) H 12/05/17 04:45 MCHC Differential 33.0 pg (28.0-36.0) 12/05/17 04:45 RDW 16.1 % (11.5-20.0) 12/05/17 04:45 Plt Count 444 Th/cmm (150-400) H 12/05/17 04:45 MPV 8.4 fl 12/05/17 04:45 Neutrophils % 71.5 % (40.0-80.0) 12/02/17 04:00 Band Neutrophils % 6 % (0-10) 12/05/17 04:45 Lymphocytes % 12.5 % (20.0-50.0) L 12/02/17 04:00 Monocytes % 14.4 % (2.0-10.0) H 12/02/17 04:00 Eosinophils % 1.5 % (0.0-5.0) 12/02/17 04:00 Basophils % 0.1 % (0.0-2.0) 12/02/17 04:00 Neutrophils (Manual) 90 % (40-80) H 12/05/17 04:45 Lymphocytes 3 % (20-50) L 12/05/17 04:45 Monocytes 1 % (2-10) L 12/05/17 04:45 Eosinophils 4 % (0-5) 11/30/17 18:00 Hypochromia 1+ 11/30/17 18:00 Macrocytosis 1+ 11/30/17 18:00 Sodium 147 mEq/L (136-145) H 12/05/17 04:45 Potassium 4.1 mEq/L (3.5-5.1) 12/05/17 04:45 Chloride 113 mEq/L (98-107) H 12/05/17 04:45 Carbon Dioxide 25.8 mEq/L (21.0-31.0) 12/05/17 04:45 Anion Gap 12.3 (7.0-16.0) 12/05/17 04:45 BUN 53 mg/dL (7-25) H 12/05/17 04:45 Creatinine 1.0 mg/dL (0.7-1.3) 12/05/17 04:45 Est GFR ( Amer) TNP 12/05/17 04:45 Est GFR (Non-Af Amer) TNP 12/05/17 04:45 BUN/Creatinine Ratio 53.0 12/05/17 04:45 Glucose 146 mg/dL (70-105) H 12/05/17 04:45 POC Glucose 124 MG/DL (70 - 105) H 12/06/17 06:30 Calcium 9.2 mg/dL (8.6-10.3) 12/05/17 04:45 Total Bilirubin 0.4 mg/dL (0.3-1.0) 12/05/17 04:45 AST 25 U/L (13-39) 12/05/17 04:45 ALT 26 U/L (7-52) 12/05/17 04:45 Alkaline Phosphatase 136 U/L (34-104) H 12/05/17 04:45 B-Natriuretic Peptide 421.0 pg/mL (5.0-100.0) H 11/30/17 18:00 Total Protein 7.0 gm/dL (6.0-8.3) 12/05/17 04:45 Albumin 3.0 gm/dL (4.2-5.5) L 12/05/17 04:45 Globulin 4.0 gm/dL 12/05/17 04:45 Albumin/Globulin Ratio 0.8 (1.0-1.8) L 12/05/17 04:45 Urine Source [place] 12/01/17 03:00 Urine Color YELLOW 12/01/17 03:00 Urine Clarity CLEAR (CLEAR) 12/01/17 03:00 Urine pH 7.0 (4.6 - 8.0) 12/01/17 03:00 Ur Specific [place] 1.015 (1.005-1.030) 12/01/17 03:00 Urine Protein NEGATIVE mg/dL (NEGATIVE) 12/01/17 03:00 Urine Glucose (UA) NEGATIVE mg/dL (NEGATIVE) 12/01/17 03:00 Urine Ketones NEGATIVE mg/dL (NEGATIVE) 12/01/17 03:00 Urine Blood TRACE (NEGATIVE) 12/01/17 03:00 Urine Nitrate NEGATIVE (NEGATIVE) 12/01/17 03:00 Urine Bilirubin NEGATIVE (NEGATIVE) 12/01/17 03:00 Urine Urobilinogen 0.2 E.U./dL (0.2 - 1.0) 12/01/17 03:00 Ur Leukocyte Esterase TRACE (NEGATIVE) H 12/01/17 03:00 Urine RBC 2-5 /hpf (0-5) H 12/01/17 03:00 Urine WBC 0-2 /hpf (0-5) 12/01/17 03:00 Ur Epithelial Cells OCCASIONAL /lpf (FEW) 12/01/17 03:00 Urine Bacteria OCCASIONAL /hpf (NONE SEEN) 12/01/17 03:00 Urine Yeast FEW /hpf (NONE SEEN) H 12/01/17 03:00 Vancomycin Trough 11.8 ug/mL (10-20) 12/06/17 06:59 - Physical Exam Vitals and I&O: Vital Signs Temp 100.1 F 12/06/17 04:00 Pulse 101 12/06/17 09:13 Resp 22 12/06/17 06:12 BP 131/82 12/06/17 08:16 Pulse Ox 100 12/06/17 09:13 Intake & Output 12/05/17 12/06/17 12/06/17 18:59 06:59 18:59 Intake Total 820 815 Output Total 1200 1200 Balance -380 -385 Weight (lbs) 67.132 kg 60.419 kg Intake: Intake, IV Amount 100 100 Piperacillin Sodium/ 100 100 Tazobact 3.375 gm In Sodium Chloride 0.9% 50 ml @ 100 mls/hr IV Q6HR [facility] Rx#:[id number] Tube Feeding 550 655 Other 170 60 Output: Urine 1200 900 Other 300 Other: # Bowel Movements 0 1 Stool Characteristics Soft Green Active Medications: Current Medications Acetaminophen (Tylenol 650mg/20.3ml Suspension) 650 mg GT DAILY PRN PRN Reason: give 30mins prior to ROM excer Stop: 01/29/18 21:00 Last Admin: 12/05/17 16:32 Dose: 650 mg Acetaminophen (Tylenol 650mg/20.3ml Suspension) 650 mg GT Q4HR PRN PRN Reason: mild pain or temp >101 Stop: 01/29/18 21:00 Last Admin: 12/06/17 00:20 Dose: 650 mg Albuterol/Ipratropium (Duoneb Neb) 3 ml HHN Q4HRT [facility] Stop: 02/01/18 22:59 Last Admin: 12/06/17 06:59 Dose: 3 ml Amiodarone HCl (Cordarone) 200 mg GT DAILY [facility] Stop: 01/30/18 08:59 Last Admin: 12/06/17 08:16 Dose: 200 mg Amlodipine Besylate (Norvasc) 5 mg GT DAILY [facility] Stop: 01/30/18 08:59 Last Admin: 12/06/17 08:16 Dose: 5 mg Aspirin (Aspirin Chewable) 81 mg GT DAILY [facility] Stop: 01/30/18 08:59 Last Admin: 12/06/17 08:16 Dose: 81 mg Bisacodyl (Dulcolax 10 Mg Supp) 10 mg RC DAILY PRN PRN Reason: Constipation Stop: 01/29/18 21:00 Last Admin: 11/30/17 21:56 Dose: 10 mg Chlorhexidine Gluconate (Peridex) 15 ml MM 0800,2000 [facility] Stop: 01/30/18 07:59 Last Admin: 12/06/17 08:29 Dose: 15 ml Clotrimazole (Lotrimin 1% Cream) 1 appl TP TID [facility] Stop: 01/30/18 08:59 Last Admin: 12/06/17 08:30 Dose: 1 appl Diltiazem HCl (Cardizem) 5 mg IVP Q6H PRN PRN Reason: HR > 140 Stop: 02/01/18 19:44 Last Admin: 12/04/17 17:31 Dose: 5 mg Docusate Sodium (Colace) 100 mg PO DAILY [facility] Stop: 01/31/18 08:59 Last Admin: 12/06/17 08:17 Dose: 100 mg Ferrous Sulfate (Iron) 450 mg GT BID [facility] Stop: 01/30/18 16:59 Last Admin: 12/06/17 08:14 Dose: 450 mg Furosemide (Lasix) 20 mg IVP BID [facility] Stop: 01/30/18 20:09 Last Admin: 12/06/17 08:16 Dose: 20 mg Heparin Sodium (Porcine) (Heparin) 5,000 units SUBQ Q12HR [facility] Stop: 01/30/18 20:59 Last Admin: 12/06/17 08:16 Dose: 5,000 units Piperacillin Sod/Tazobactam (Sod 3.375 gm/ Sodium Chloride) 50 mls @ 100 mls/ hr IV Q6HR [facility] Stop: 02/02/18 17:59 Last Infusion: 12/06/17 06:12 Dose: Infused Vancomycin HCl 0.75 gm/ Sodium (Chloride) 250 mls @ 165 mls/hr IV Q12H [facility] Stop: 02/03/18 07:59 Last Admin: 12/06/17 09:28 Dose: 167 mls/hr Lactobacillus Rhamnosus (Culturelle 15b) 1 each PO DAILY [facility] Stop: 02/02/18 08:59 Last Admin: 12/06/17 08:14 Dose: 1 each Lactulose (Cephulac) 20 gm GT BID [facility] Stop: 01/30/18 16:59 Last Admin: 12/06/17 08:14 Dose: 20 gm Lorazepam (Ativan) 1 mg IVP Q4H PRN; Protocol PRN Reason: Agitation Stop: 02/01/18 20:00 Last Admin: 12/06/17 05:17 Dose: 1 mg Magnesium Hydroxide (Milk Of Magnesia) 30 ml GT HS PRN PRN Reason: Constipation Stop: 01/30/18 12:36 Last Admin: 12/01/17 23:03 Dose: 30 ml Methylprednisolone Sodium Succinate (Solu-Medrol) 20 mg IVP Q12HR [facility] Stop: 02/03/18 20:59 Last Admin: 12/06/17 08:15 Dose: 20 mg Metoprolol Tartrate (Lopressor) 25 mg GT DAILY [facility] Stop: 01/31/18 08:59 Last Admin: 12/06/17 08:15 Dose: 25 mg Miscellaneous (Vte Chemical Prophylaxis Screen/ Admission) 1 ea MC PRN PRN PRN Reason: PROTOCOL Stop: 01/30/18 09:44 Miscellaneous (Probiotic Screen) 1 ea PRN PRN PRN Reason: PROTOCOL Stop: 02/01/18 10:29 Miscellaneous (Vancomycin Iv Per Pharmacy) 1 ea PRN [facility] Stop: 02/02/18 14:59 Pantoprazole Sodium (Protonix) 40 mg GT DAILY [facility] Stop: 01/31/18 08:59 Last Admin: 12/06/17 08:15 Dose: 40 mg Potassium Chloride (Potassium Chloride Elixir) 20 meq GT DAILY [facility] Stop: 01/31/18 08:59 Last Admin: 12/06/17 08:14 Dose: 20 meq Silver Sulfadiazine (Ssd) 1 appl TP DAILY [facility] Stop: 01/31/18 13:59 Last Admin: 12/06/17 08:33 Dose: 1 appl Simethicone (Mylicon) 80 mg PO BID PRN PRN Reason: Gas Stop: 01/31/18 09:43 Sodium Chloride (Saline Flush) 10 ml IV QSHIFT [facility] Stop: 01/29/18 22:22 Last Admin: 12/06/17 08:34 Dose: 10 ml Tramadol HCl (Ultram) 50 mg GT Q6H PRN PRN Reason: Pain (Moderate) Stop: 01/30/18 12:36 Last Admin: 12/02/17 20:47 Dose: 50 mg General: No acute distress HEENT: Atraumatic Neck: Supple Lungs: Clear to auscultation Abdomen: Bowel sounds, Soft - Procedures Procedures: Procedures Procedure Code Date AIRWAYS SURGICAL PROCEDURE 45827 10/09/17 CHANGE FEEDING DEVICE IN UP INTEST TRACT, DISTANCE EDUCATION TEACHER APPROACH [id number] 08/18/16 CHANGE GASTROSTOMY TUBE 55467 08/18/16 CHANGE TRACHEOSTOMY DEVICE IN TRACHEA, EXTERNAL APPROACH [id number] 10/09/[address] GASTROSTOMY TUBE 07818 10/22/16 EXCISION OF TRACHEA, ENDO, DIAGN [id number] 10/09/17 INSERTION OF FEEDING DEVICE INTO STOMACH, PERC APPROACH [id number] 10/22/16 RESPIRATORY VENTILATION, 24-96 CONSECUTIVE HOURS [id number] 11/30/17 RESPIRATORY VENTILATION, GREATER THAN 96 CONSECUTIVE HOURS [id number] 10/22/16 VENT MGMT INPAT INIT DAY 58215 01/13/17 VENT MGMT INPAT SUBQ DAY 06700 01/13/17 Assessment/Plan - Problem List Patient Problems: All Active Problems SCROTAL SWELLING (Acute) - Plan Plan: vent support continue current orders Nutritional Asmnt/Malnutr-PDOC - Dietary Evaluation Malnutrition Findings (Please click <Entered> for more info): Nutritional Asmnt/Malnutrition Start: 12/01/17 16: 12 Text: Status: Active Freq: Document 12/01/17 16:12 MEENAKSHI (Rec: 12/01/17 16:34 MEENAKSHI [email or web address]) Nutritional Asmnt/Malnutrition Patient General Information Nutritional Screening High Risk Consult Diagnosis CHF, r/o sepsis Pertinent Medical Hx/Surgical Hx dysphagia, PEG, a fib, OA, HTN , anemia, anxiety, tracheostomy Subjective Information Consult received for jerardo < 12. Pt seen on vent at time of visit. TF was off at this time. Per nurse notes, pt tolerated well. Current Diet Order/ Nutrition Support Isosource 1.5, 55ml/hr x 20hr Pertinent Labs 2/ Na 129, K 3.9, Cl 96, BUN 19, Cr 0.7, Glucose 114, Ca 8. 3, Alb 2.8 Nutritional Hx/Data Height 1.73 m Height (Calculated Centimeters) 172.7 Current Weight (lbs) 65.635 kg Weight (Calculated Kilograms) 65.6 Weight (Calculated Grams) 10329.8 [place] Body Weight 154 % [place] Body Weight 94 Body Mass Index (BMI) 21.9 Weight Status Approriate GI Symptoms GI Symptoms None Last BM no record Difficult in: None Skin Integrity/Comment: reddened to left adb, pressure area to left lateral foot, bruise to left arm Jerardo 13 Estimated Nutritional Goals BEE in Kcals: Using Current wt Calories/Kcals/Kg 25-30 Kcals Calculated 6813-5555 Protein: Using Current wt Protein g/k-1.2 Protein Calculated 67-80 Fluid: ml 1675-2010ml (1ml/kcal) Nutritional Problem No current Nutrition Prob Problem N/A Intervention/Recommendation Comments 1. Continue with current TF regimen. It provides 1650kcal, 74g protein, meeting 100% of nutritional needs. 2. Monitor TF rate, tolerance, wt weekly, skin integrity and labs 3. F/U as moderate risk in 3-5 days, 12/04-12/06 Expected Outcomes/Goals Expected Outcomes/Goals 1. Pt to meet at least 75% of nutritional needs via nutrition support with tolerance 2. Wt stability, skin to remain intact, labs to approach WNL.
[2017-12-07] MEDS: Albuterol/Ipratropium Neb 3 ML AERS HHN SCH ×5 (03:02→18:40)
[2017-12-07 04:27] LABS: HEMATOCRIT 32.1 % (41.0-60); HEMOGLOBIN 10.7 gm/dL (12-16); MEAN CORPUSCULAR HEMOGLOBIN 32.2 pg (27.0-31.0); MEAN CORPUSCULAR HGB CONC 33.5 pg (28.0-36.0); MEAN PLATELET VOLUME 8.4 fl; PLATELET COUNT 396 Th/cmm (150-400); RED BLOOD COUNT 3.34 Mil/cmm (3.80-5.80); RED CELL DISTRIBUTION WIDTH 15.6 % (11.5-20.0)
[2017-12-07 04:40] LABS: WHITE BLOOD COUNT 11.6 Th/cmm (4.8-10.8)
[2017-12-07 04:49] LABS: ANION GAP 10.8 (7.0-16.0); BUN - UREA NITROGEN 54 mg/dL (7-25); CALCIUM SERUM 9.2 mg/dL (8.6-10.3); CARBON DIOXIDE 27.1 mEq/L (21.0-31.0); CHLORIDE 116 mEq/L (98-107); CREATININE - SERUM 1.2 mg/dL (0.7-1.3); GLUCOSE 144 mg/dL (70-105); POTASSIUM SERUM 3.9 mEq/L (3.5-5.1); SODIUM SERUM 150 mEq/L (136-145)
[2017-12-07 05:14] LABS: BAND NEUTROPHILE 2 % (0-10); LYMPHOCYTE 1 % (20-50); MONOCYTE 1 % (2-10); NEUTROPHILS 96 % (40-80); PLATELET ESTIMATE ADEQUATE (NORMAL); TOTAL CELLS COUNTED 100
--- NOTE | 2017-12-07 08:27 | Diagnostic Imaging Report ---
CHEST X-RAY: AP view INDICATION: Shortness of breath COMPARISON: 12/03/2017 FINDINGS: Tracheostomy tube is stable. Small left effusion is noted. Cardiomegaly is noted. IMPRESSION: Small left effusion. Atelectasis versus faint infiltrate the left lung base cannot be excluded Cardiomegaly.
[2017-12-07] MEDS: Pantoprazole 40 mg/Packet GT SCH (08:32)
[2017-12-07] MEDS: Multivitamin w/ Minerals Tab GT SCH (08:32)
[2017-12-07] MEDS: Aspirin 81mg Chewable Tab GT SCH (08:33)
[2017-12-07] MEDS: Lactobacillus Rhamnosus GG 15 Billion CFU CAP.SPRINK PO SCH (08:33)
[2017-12-07] MEDS: Ferrous Sulfate 300 MG/5 ML UDC GT SCH ×2 (08:34→16:35)
[2017-12-07] MEDS: Lactulose 10 Gm/15 mL 30mL UDC GT SCH ×2 (08:34→16:35)
[2017-12-07] MEDS: methylPREDNISolone SS 40 mg Vial IVP SCH (08:34)
[2017-12-07] MEDS: Potassium Chloride Elixir 20 mEq /15 mL UDC GT SCH (08:34)
[2017-12-07] MEDS: Chlorhexidine Gluconate 0.12% 15mL Mouthwash MM SCH (08:36)
--- NOTE | 2017-12-07 16:16 | General Progress Note ---
Subjective - Review of Systems Events since last encounter: comfortable in no distress Objective - Results Result Diagrams: 12/07/17 04:16 12/07/17 04:16 Recent Labs: Laboratory Last Values WBC 11.6 Th/cmm (4.8-10.8) H D 12/07/17 04:16 RBC 3.34 Mil/cmm (3.80-5.80) L 12/07/17 04:16 Hgb 10.7 gm/dL (12-16) L 12/07/17 04:16 Hct 32.1 % (41.0-60) L 12/07/17 04:16 MCV 96.0 fl (80-99) 12/07/17 04:16 MCH 32.2 pg (27.0-31.0) H 12/07/17 04:16 MCHC Differential 33.5 pg (28.0-36.0) 12/07/17 04:16 RDW 15.6 % (11.5-20.0) 12/07/17 04:16 Plt Count 396 Th/cmm (150-400) 12/07/17 04:16 MPV 8.4 fl 12/07/17 04:16 Neutrophils % 71.5 % (40.0-80.0) 12/02/17 04:00 Band Neutrophils % 2 % (0-10) 12/07/17 04:16 Lymphocytes % 12.5 % (20.0-50.0) L 12/02/17 04:00 Monocytes % 14.4 % (2.0-10.0) H 12/02/17 04:00 Eosinophils % 1.5 % (0.0-5.0) 12/02/17 04:00 Basophils % 0.1 % (0.0-2.0) 12/02/17 04:00 Neutrophils (Manual) 96 % (40-80) H 12/07/17 04:16 Lymphocytes 1 % (20-50) L 12/07/17 04:16 Monocytes 1 % (2-10) L 12/07/17 04:16 Eosinophils 4 % (0-5) 11/30/17 18:00 Hypochromia 1+ 11/30/17 18:00 Platelet Estimate ADEQUATE (NORMAL) 12/07/17 04:16 Macrocytosis 1+ 11/30/17 18:00 Sodium 150 mEq/L (136-145) H 12/07/17 04:16 Potassium 3.9 mEq/L (3.5-5.1) 12/07/17 04:16 Chloride 116 mEq/L (98-107) H 12/07/17 04:16 Carbon Dioxide 27.1 mEq/L (21.0-31.0) 12/07/17 04:16 Anion Gap 10.8 (7.0-16.0) 12/07/17 04:16 BUN 54 mg/dL (7-25) H 12/07/17 04:16 Creatinine 1.2 mg/dL (0.7-1.3) 12/07/17 04:16 Est GFR ( Amer) TNP 12/07/17 04:16 Est GFR (Non-Af Amer) TNP 12/07/17 04:16 BUN/Creatinine Ratio 45.0 12/07/17 04:16 Glucose 144 mg/dL (70-105) H 12/07/17 04:16 POC Glucose 124 MG/DL (70 - 105) H 12/06/17 06:30 Calcium 9.2 mg/dL (8.6-10.3) 12/07/17 04:16 Total Bilirubin 0.4 mg/dL (0.3-1.0) 12/05/17 04:45 AST 25 U/L (13-39) 12/05/17 04:45 ALT 26 U/L (7-52) 12/05/17 04:45 Alkaline Phosphatase 136 U/L (34-104) H 12/05/17 04:45 B-Natriuretic Peptide 421.0 pg/mL (5.0-100.0) H 11/30/17 18:00 Total Protein 7.0 gm/dL (6.0-8.3) 12/05/17 04:45 Albumin 3.0 gm/dL (4.2-5.5) L 12/05/17 04:45 Globulin 4.0 gm/dL 12/05/17 04:45 Albumin/Globulin Ratio 0.8 (1.0-1.8) L 12/05/17 04:45 Urine Source [place] 12/01/17 03:00 Urine Color YELLOW 12/01/17 03:00 Urine Clarity CLEAR (CLEAR) 12/01/17 03:00 Urine pH 7.0 (4.6 - 8.0) 12/01/17 03:00 Ur Specific [place] 1.015 (1.005-1.030) 12/01/17 03:00 Urine Protein NEGATIVE mg/dL (NEGATIVE) 12/01/17 03:00 Urine Glucose (UA) NEGATIVE mg/dL (NEGATIVE) 12/01/17 03:00 Urine Ketones NEGATIVE mg/dL (NEGATIVE) 12/01/17 03:00 Urine Blood TRACE (NEGATIVE) 12/01/17 03:00 Urine Nitrate NEGATIVE (NEGATIVE) 12/01/17 03:00 Urine Bilirubin NEGATIVE (NEGATIVE) 12/01/17 03:00 Urine Urobilinogen 0.2 E.U./dL (0.2 - 1.0) 12/01/17 03:00 Ur Leukocyte Esterase TRACE (NEGATIVE) H 12/01/17 03:00 Urine RBC 2-5 /hpf (0-5) H 12/01/17 03:00 Urine WBC 0-2 /hpf (0-5) 12/01/17 03:00 Ur Epithelial Cells OCCASIONAL /lpf (FEW) 12/01/17 03:00 Urine Bacteria OCCASIONAL /hpf (NONE SEEN) 12/01/17 03:00 Urine Yeast FEW /hpf (NONE SEEN) H 12/01/17 03:00 Vancomycin Trough 11.8 ug/mL (10-20) 12/06/17 06:59 - Physical Exam Vitals and I&O: Vital Signs Temp 98.8 F 12/07/17 12:00 Pulse 112 12/07/17 15:14 Resp 26 12/07/17 13:00 BP 142/82 12/07/17 13:00 Pulse Ox 100 12/07/17 15:14 Intake & Output 12/06/17 12/07/17 12/07/17 18:59 06:59 18:59 Intake Total 1160 1050 300 Output Total 1100 750 Balance 60 300 300 Weight (lbs) 60.419 kg 59.959 kg Intake: Intake, IV Amount 350 350 300 Piperacillin Sodium/ 100 100 50 Tazobact 3.375 gm In Sodium Chloride 0.9% 50 ml @ 100 mls/hr IV Q6HR [facility] Rx#:[id number] Vancomycin HCl 0.75 gm In 250 250 250 Sodium Chloride 0.9% 250 ml @ 165 mls/hr IV Q12H [facility] Rx#:[id number] Tube Feeding 660 550 Other 150 150 Output: Urine 1100 750 Other: # Bowel Movements 1 1 Stool Characteristics Soft [place] Active Medications: Current Medications Acetaminophen (Tylenol 650mg/20.3ml Suspension) 650 mg GT DAILY PRN PRN Reason: give 30mins prior to ROM excer Stop: 01/29/18 21:00 Last Admin: 12/07/17 04:58 Dose: 650 mg Acetaminophen (Tylenol 650mg/20.3ml Suspension) 650 mg GT Q4HR PRN PRN Reason: mild pain or temp >101 Stop: 01/29/18 21:00 Last Admin: 12/06/17 17:21 Dose: 650 mg Albuterol/Ipratropium (Duoneb Neb) 3 ml HHN Q4HRT [facility] Stop: 02/01/18 22:59 Last Admin: 12/07/17 15:13 Dose: 3 ml Amiodarone HCl (Cordarone) 200 mg GT DAILY [facility] Stop: 01/30/18 08:59 Last Admin: 12/07/17 08:33 Dose: 200 mg Amlodipine Besylate (Norvasc) 5 mg GT DAILY [facility] Stop: 01/30/18 08:59 Last Admin: 12/07/17 08:33 Dose: 5 mg Aspirin (Aspirin Chewable) 81 mg GT DAILY [facility] Stop: 01/30/18 08:59 Last Admin: 12/07/17 08:33 Dose: 81 mg Bisacodyl (Dulcolax 10 Mg Supp) 10 mg RC DAILY PRN PRN Reason: Constipation Stop: 01/29/18 21:00 Last Admin: 11/30/17 21:56 Dose: 10 mg Chlorhexidine Gluconate (Peridex) 15 ml MM 0800,2000 [facility] Stop: 01/30/18 07:59 Last Admin: 12/07/17 08:36 Dose: 15 ml Clotrimazole (Lotrimin 1% Cream) 1 appl TP TID [facility] Stop: 01/30/18 08:59 Last Admin: 12/07/17 08:35 Dose: 1 appl Diltiazem HCl (Cardizem) 5 mg IVP Q6H PRN PRN Reason: HR > 140 Stop: 02/01/18 19:44 Last Admin: 12/04/17 17:31 Dose: 5 mg Docusate Sodium (Colace) 100 mg PO DAILY [facility] Stop: 01/31/18 08:59 Last Admin: 12/07/17 08:32 Dose: 100 mg Ferrous Sulfate (Iron) 450 mg GT BID [facility] Stop: 01/30/18 16:59 Last Admin: 12/07/17 08:34 Dose: 450 mg Furosemide (Lasix) 20 mg IVP BID [facility] Stop: 01/30/18 20:09 Last Admin: 12/07/17 08:34 Dose: 20 mg Heparin Sodium (Porcine) (Heparin) 5,000 units SUBQ Q12HR [facility] Stop: 01/30/18 20:59 Last Admin: 12/07/17 08:34 Dose: 5,000 units Piperacillin Sod/Tazobactam (Sod 3.375 gm/ Sodium Chloride) 50 mls @ 100 mls/ hr IV Q6HR [facility] Stop: 02/02/18 17:59 Last Infusion: 12/07/17 12:35 Dose: Infused Vancomycin HCl 0.75 gm/ Sodium (Chloride) 250 mls @ 165 mls/hr IV Q12H [facility] Stop: 02/03/18 07:59 Last Infusion: 12/07/17 10:30 Dose: Infused Lactobacillus Rhamnosus (Culturelle 15b) 1 each PO DAILY [facility] Stop: 02/02/18 08:59 Last Admin: 12/07/17 08:33 Dose: 1 each Lactulose (Cephulac) 20 gm GT BID [facility] Stop: 01/30/18 16:59 Last Admin: 12/07/17 08:34 Dose: 20 gm Lorazepam (Ativan) 1 mg IVP Q4H PRN; Protocol PRN Reason: Agitation Stop: 02/01/18 20:00 Last Admin: 12/07/17 05:06 Dose: 1 mg Magnesium Hydroxide (Milk Of Magnesia) 30 ml GT HS PRN PRN Reason: Constipation Stop: 01/30/18 12:36 Last Admin: 12/01/17 23:03 Dose: 30 ml Methylprednisolone Sodium Succinate (Solu-Medrol) 20 mg IVP Q12HR [facility] Stop: 02/03/18 20:59 Last Admin: 12/07/17 08:34 Dose: 20 mg Metoprolol Tartrate (Lopressor) 25 mg GT DAILY [facility] Stop: 01/31/18 08:59 Last Admin: 12/07/17 08:34 Dose: 25 mg Miscellaneous (Vte Chemical Prophylaxis Screen/ Admission) 1 ea PRN PRN PRN Reason: PROTOCOL Stop: 01/30/18 09:44 Miscellaneous (Probiotic Screen) 1 ea PRN PRN PRN Reason: PROTOCOL Stop: 02/01/18 10:29 Miscellaneous (Vancomycin Iv Per Pharmacy) 1 ea PRN [facility] Stop: 02/02/18 14:59 Pantoprazole Sodium (Protonix) 40 mg GT DAILY [facility] Stop: 01/31/18 08:59 Last Admin: 12/07/17 08:32 Dose: 40 mg Potassium Chloride (Potassium Chloride Elixir) 20 meq GT DAILY [facility] Stop: 01/31/18 08:59 Last Admin: 12/07/17 08:34 Dose: 20 meq Silver Sulfadiazine (Ssd) 1 appl TP DAILY [facility] Stop: 01/31/18 13:59 Last Admin: 12/07/17 08:35 Dose: 1 appl Simethicone (Mylicon) 80 mg PO BID PRN PRN Reason: Gas Stop: 01/31/18 09:43 Sodium Chloride (Saline Flush) 10 ml IV QSHIFT [facility] Stop: 01/29/18 22:22 Last Admin: 12/07/17 08:36 Dose: 10 ml Tramadol HCl (Ultram) 50 mg GT Q6H PRN PRN Reason: Pain (Moderate) Stop: 01/30/18 12:36 Last Admin: 12/02/17 20:47 Dose: 50 mg General: No acute distress HEENT: Atraumatic Neck: Supple Lungs: Clear to auscultation Abdomen: Bowel sounds, Soft - Procedures Procedures: Procedures Procedure Code Date AIRWAYS SURGICAL PROCEDURE 87725 10/09/17 CHANGE FEEDING DEVICE IN UP INTEST TRACT, ASSEMBLER RADIO AND ELECTRICAL APPROACH [id number] 08/18/16 CHANGE GASTROSTOMY TUBE 88369 08/18/16 CHANGE TRACHEOSTOMY DEVICE IN TRACHEA, EXTERNAL APPROACH [id number] 10/09/[address] GASTROSTOMY TUBE 23077 10/22/16 EXCISION OF TRACHEA, ENDO, DIAGN [id number] 10/09/17 INSERTION OF FEEDING DEVICE INTO STOMACH, PERC APPROACH [id number] 10/22/16 RESPIRATORY VENTILATION, 24-96 CONSECUTIVE HOURS [id number] 10/09/17 RESPIRATORY VENTILATION, GREATER THAN 96 CONSECUTIVE HOURS [id number] 11/30/17 VENT MGMT INPAT INIT DAY 01/13/17 VENT MGMT INPAT SUBQ 01/13/17 Assessment/Plan - Problem List Patient Problems: All Active Problems SCROTAL SWELLING (Acute) - Plan Plan: vent support continue current orders Nutritional Asmnt/Malnutr-PDOC - Dietary Evaluation Malnutrition Findings (Please click <Entered> for more info): Nutritional Asmnt/Malnutrition Start: 12/01/17 16: 12 Text: Status: Active Freq: Document 12/01/17 16:12 LCHENG (Rec: 12/01/17 16:34 LCHENG [email or web address]) Nutritional Asmnt/Malnutrition Patient General Information Nutritional Screening High Risk Consult Diagnosis CHF, r/o sepsis Pertinent Medical Hx/Surgical Hx dysphagia, PEG, a fib, OA, HTN , anemia, anxiety, tracheostomy Subjective Information Consult received for jerardo < 12. Pt seen on vent at time of visit. TF was off at this time. Per nurse notes, pt tolerated well. Current Diet Order/ Nutrition Support Isosource 1.5, 55ml/hr x 20hr Pertinent Labs 2/6 Na 129, K 3.9, Cl 96, BUN 19, Cr 0.7, Glucose 114, Ca 8. 3, Alb 2.8 Nutritional Hx/Data Height 1.73 m Height (Calculated Centimeters) 172.7 Current Weight (lbs) 65.635 kg Weight (Calculated Kilograms) 65.6 Weight (Calculated Grams) 83729.8 [place] Body Weight 154 % [place] Body Weight 94 Body Mass Index (BMI) 21.9 Weight Status Approriate GI Symptoms GI Symptoms None Last BM no record Difficult in: None Skin Integrity/Comment: reddened to left adb, pressure area to left lateral foot, bruise to left arm Jerardo 13 Estimated Nutritional Goals BEE in Kcals: Using Current wt Calories/Kcals/Kg 25-30 Kcals Calculated 3700-9525 Protein: Using Current wt Protein g/k-1.2 Protein Calculated 67-80 Fluid: ml 1675-2010ml (1ml/kcal) Nutritional Problem No current Nutrition Prob Problem N/A Intervention/Recommendation Comments 1. Continue with current TF regimen. It provides 1650kcal, 74g protein, meeting 100% of nutritional needs. 2. Monitor TF rate, tolerance, wt weekly, skin integrity and labs 3. F/U as moderate risk in 3-5 days, 12/04-12/06 Expected Outcomes/Goals Expected Outcomes/Goals 1. Pt to meet at least 75% of nutritional needs via nutrition support with tolerance 2. Wt stability, skin to remain intact, labs to approach WNL.
[2017-12-07] MEDS: Diltiazem 5 mg/mL 5mL Vial IVP PRN (17:11)
--- NOTE | 2017-12-20 09:14 | Discharge Summary ---
DATE OF DISCHARGE: 12/07/2017 The patient was admitted to on 11/30/2017, was discharged on 12/07/2017 in stable condition to [facility] for continuation of care. BRIEF SUMMARY: This patient is an 87-year-old elderly male patient, is a subacute patient having status post trach and PEG status. Apparently is becoming increasing short of breath and increasing scrotal swelling and generalized anasarca and the patient was evaluated in the Emergency Room, was admitted for that problem and he was in the ICU. The patient had initial diagnosis of [id number] respiratory failure, pneumonia, had scrotal swelling, ventilator dependent respiratory failure, dysphagia and the patient was given IV antibiotic and was given ventilator support and the patient had a Urology consultation by Dr. Remy. He felt the patient's scrotal swelling probably secondary to his generalized body failure as well as malnutrition and the patient gradually improved and the patient was in stable condition and on 12/07/2017, the patient still needed IV antibiotics and continuation of his ventilatory support and with discussion with Pulmonary doctor, Dr. Echeverria and also discussion with flat breakdown processor and Dr. Robert Liu and ID doctor, Dr. Omar Liu, it was decided that the patient needs continuation of care; for that reason, the patient was transferred to [facility] and I will be following the patient there. MEDICATIONS: See the reconciliation sheet. DIET: ____. ACTIVITY: The patient is bedbound. JOB# [id number]
== END 2017-12-07 19:54 | disposition short-term general hospital (02) | DRG 870 ==
LOC: ER 15:53 → ICU 19:00
PROVIDERS: ADMIT Internal Medicine; ATTEND Internal Medicine
PROC: 5A1955Z Respiratory Ventilation, Greater than 96 Consecutive Hours (ICD-10-PCS; principal; 2017-11-30)
DX: A41.9 Sepsis, unspecified organism (principal); J96.21 Acute and chronic respiratory failure with hypoxia; J18.9 Pneumonia, unspecified organism; G93.40 Encephalopathy, unspecified; Z99.11 Dependence on respirator [ventilator] status; I11.0 Hypertensive heart disease with heart failure; Z93.0 Tracheostomy status; I48.91 Unspecified atrial fibrillation; I50.9 Heart failure, unspecified; L03.116 Cellulitis of left lower limb; R13.10 Dysphagia, unspecified; F03.90 Unspecified dementia, unspecified severity, without behavioral disturbance, psychotic disturbance, mood disturbance, and anxiety; M19.90 Unspecified osteoarthritis, unspecified site; K21.9 Gastro-esophageal reflux disease without esophagitis; Z16.12 Extended spectrum beta lactamase (ESBL) resistance; Z16.24 Resistance to multiple antibiotics; F41.9 Anxiety disorder, unspecified; N49.2 Inflammatory disorders of scrotum; I73.9 Peripheral vascular disease, unspecified; I25.10 Atherosclerotic heart disease of native coronary artery without angina pectoris; R13.19 Other dysphagia; Z79.82 Long term (current) use of aspirin; Z93.1 Gastrostomy status; Z86.73 Personal history of transient ischemic attack (TIA), and cerebral infarction without residual deficits
CPT/HCPCS: 36415-UA; 71045-TC; 76870-TC; 80048-TC; 80053-TC; 80202-TC; 81001-TC; 82948-90; 83880-TC; 85007-TC; 85025-TC; 85027-TC; 87070; 90779; 93005; 94002; 94003; 94664; 96375; 96376; A4217; J0696; J1644; J1940; J2060; J2543; J2920; J3370; J7030; J7040; Z7610